=== PATIENT | female | born 1955 | race Caucasian/White ===

== ENCOUNTER → 2016-10-02 | Outpatient (CLI) | payer OTHER ==
[~2016-10-02] MED LIST: ALBU17IN INH; CALTTAB11 PO; CITA20TA4 PO; CLON0.5T PO; FISH1000 PO; FLUTISP; IBUP60TA PO; PRIL20CA9 PO; SERO50TA PO; ZOCO20TA PO
--- NOTE | 2016-10-03 03:59 | REP ---
Clinical: Sprain. . Technique: AP, lateral, bilateral oblique views right ankle . Findings: No acute fracture or dislocation. Skeletal structures and joint spaces are intact and normal. Ankle mortise appears stable. No subcutaneous emphysema or radiodense foreign body. Lateral view demonstrates L K nail heal spur. Impression: No acute fracture or dislocation. Signed by Familia Conley MD 10/03/2016 03:50 A
== END ==
LOC: M WUC 10:13
PROVIDERS: ATTEND Physician Assistant
DX: S93.421A Sprain of deltoid ligament of right ankle, initial encounter (principal); W18.30XA Fall on same level, unspecified, initial encounter; Y92.009 Unspecified place in unspecified non-institutional (private) residence as the place of occurrence of the external cause

== ENCOUNTER → 2016-12-20 | Outpatient (CLI) | payer OTHER ==
--- NOTE | 2016-12-20 15:57 | REPMRS ---
Patient History The patient states she had a clinical breast exam in Patient is postmenopausal. Family history of prostate cancer in father at age 81. Reductions of both breasts, October 2011. Digital Woman Screen Mammo: December 20, 2016 - Exam #: [id number] Bilateral CC and MLO view(s) were taken. Technologist: Bhavna Acosta, Technologist Prior study comparison: December 21, 2015, digital woman screen mammo performed at [facility]. November 09, 2014, digital woman screen mammo performed at [facility]. FINDINGS: There are scattered fibroglandular densities. There has been no change in the appearance of the mammogram from the prior studies. There is a mild amount of residual fibroglandular tissue which is fairly symmetric. There is no interval development of dominant mass, architectural distortion, or clustered microcalcification suggestive of malignancy. ASSESSMENT: BI-RADS/ACR category 1 mammogram. Negative. Recommendation Routine screening mammogram in 1 year (for women over age 40). This mammogram was interpreted with the aid of an FDA-approved computer-aided dectection system. Electronically Signed By: Aquiles Del Valle MD 12/20/16 0097
== END ==
LOC: M WHC 14:52
PROVIDERS: ATTEND Nurse Practitioner Family
DX: Z12.31 Encounter for screening mammogram for malignant neoplasm of breast (principal)

== ENCOUNTER → 2017-09-29 | Outpatient (CLI) | payer OTHER ==
[2017-09-29 09:27] LABS: HEMATOCRIT 41.1 % (36.0-47.0); HEMOGLOBIN 13.7 g/dl (12.0-16.0); MEAN CORPUSCULAR HEMOGLOBIN 30.6 pg (27.0-33.0); MEAN CORPUSCULAR HGB CONC 33.3 g/dl (32.0-36.5); MEAN CORPUSCULAR VOLUME 91.7 fl (80.0-96.0); PLATELET COUNT, AUTOMATED 231 10^3/uL (150-450); RED BLOOD COUNT 4.48 10^6/uL (4.00-5.40); RED CELL DISTRIBUTION WIDTH 12.6 % (11.5-14.5); WHITE BLOOD COUNT 4.7 10^3/uL (4.0-10.0)
[2017-09-29 10:08] LABS: ALBUMIN/GLOBULIN RATIO 1.25 (1.00-1.93); ALKALINE PHOSPHATASE 97 U/L (45-117); ALT/SGPT 40 U/L (12-78); ANION GAP 7 MEQ/L (8-16); AST/SGOT 19 U/L (7-37); BILIRUBIN,TOTAL 0.6 MG/DL (0.2-1.0); BLOOD UREA NITROGEN 12 MG/DL (7-18); CALCIUM LEVEL 8.9 MG/DL (8.8-10.2); CARBON DIOXIDE LEVEL 28 MEQ/L (21-32); CHLORIDE LEVEL 109 MEQ/L (98-107); CHOLESTEROL LEVEL 150 MG/DL (<200); CHOLESTEROL RISK RATIO 3.125 (<5); CREATININE FOR GFR 0.75 MG/DL (0.55-1.30); FERRITIN 26 NG/ML (8-252); FREE T4 0.81 NG/DL (0.76-1.46); GLOMERULAR FILTRATION RATE > 60.0 (>45); GLUCOSE, FASTING 118 MG/DL (70-100); HDL CHOLESTEROL 48 MG/DL (>40); IRON (FE) 50 UG/DL (50-170); LDL CHOLESTEROL 65.8 MG/DL (<100); NON-HDL-C 102 MG/DL; PERCENT SATURATION 12.8 % (13.2-45.0); POTASSIUM SERUM 4.5 MEQ/L (3.5-5.1); SODIUM LEVEL 144 MEQ/L (136-145); TOTAL IRON BINDING CAPACITY 392 UG/DL (250-450); TOTAL PROTEIN 7.2 GM/DL (6.4-8.2); TRIGLYCERIDES LEVEL 181 MG/DL (<150)
[2017-09-29 11:13] LABS: ESTIMATED AVERAGE GLUCOSE 120 MG/DL (60-110); HEMOGLOBIN A1c 5.8 %
[2017-09-29 12:34] LABS: TOTAL 25(OH) VITAMIN D 24.1 NG/ML (30.0-100.0); VITAMIN B12 LEVEL 1218 PG/ML (247-911)
[2017-09-29 12:37] LABS: FOLATE 13.5 NG/ML (>5.4)
== END ==
LOC: M LAB 08:48
DX: Z01.818 Encounter for other preprocedural examination (principal); E66.01 Morbid (severe) obesity due to excess calories; K76.89 Other specified diseases of liver; K76.0 Fatty (change of) liver, not elsewhere classified
CPT/HCPCS: 71046

== ENCOUNTER → 2017-12-22 | Outpatient (CLI) | payer OTHER | LOC: M WHC 15:05 | DX: Z12.31 Encounter for screening mammogram for malignant neoplasm of breast (principal); Z78.0 Asymptomatic menopausal state ==

== ENCOUNTER → 2018-07-24 | Outpatient (CLI) | payer OTHER ==
[~2018-07-24] MED LIST changes: -CLON0.5T PO; +CLON0.5T8 PO
[2018-07-24 13:58] LABS: ALBUMIN 3.8 GM/DL (3.2-5.2); ALT/SGPT 23 U/L (12-78); BILIRUBIN,TOTAL 1.1 MG/DL (0.2-1.0); BLOOD UREA NITROGEN 9 MG/DL (7-18); CALCIUM LEVEL 9.1 MG/DL (8.8-10.2); CARBON DIOXIDE LEVEL 27 MEQ/L (21-32); CHLORIDE LEVEL 105 MEQ/L (98-107); CHOLESTEROL LEVEL 195 MG/DL (<200); CHOLESTEROL RISK RATIO 4.333 (<5); CREATININE FOR GFR 0.67 MG/DL (0.55-1.30); FERRITIN 36 NG/ML (8-252); FREE T4 0.94 NG/DL (0.76-1.46); GLOMERULAR FILTRATION RATE > 60.0 (>45); GLUCOSE, FASTING 99 MG/DL (70-100); HDL CHOLESTEROL 45 MG/DL (>40); IRON (FE) 84 UG/DL (50-170); LDL CHOLESTEROL 117 MG/DL (<100); NON-HDL-C 150 MG/DL; POTASSIUM SERUM 4.3 MEQ/L (3.5-5.1); SODIUM LEVEL 141 MEQ/L (136-145); THYROID STIMULATING HORMONE 0.855 uIU/ML (0.358-3.740); TOTAL IRON BINDING CAPACITY 336 UG/DL (250-450); TOTAL PROTEIN 7.1 GM/DL (6.4-8.2); TRIGLYCERIDES LEVEL 164 MG/DL (<150)
[2018-07-24 13:59] LABS: TOTAL 25(OH) VITAMIN D 34.4 NG/ML (30.0-100.0)
[2018-07-24 14:00] LABS: VITAMIN B12 LEVEL 1280 PG/ML (247-911)
[2018-07-24 14:53] LABS: HEMOGLOBIN A1c 5.4 %
== END ==
LOC: M SMT 08:36
PROVIDERS: ATTEND Surgery
DX: K91.2 Postsurgical malabsorption, not elsewhere classified (principal)

== ENCOUNTER → 2018-10-26 | Outpatient (CLI) | payer OTHER ==
[~2018-10-26] MED LIST changes: -CITA20TA4 PO; +CITA20TA6 PO; +FLUT50SP12; -FLUTISP; +IBUP600T42 PO; -IBUP60TA PO
[2018-10-26 13:50] LABS: ALBUMIN 3.8 GM/DL (3.2-5.2); ALT/SGPT 25 U/L (12-78); BILIRUBIN,TOTAL 1.4 MG/DL (0.2-1.0); BLOOD UREA NITROGEN 14 MG/DL (7-18); CALCIUM LEVEL 9.3 MG/DL (8.8-10.2); CARBON DIOXIDE LEVEL 28 MEQ/L (21-32); CHLORIDE LEVEL 108 MEQ/L (98-107); CHOLESTEROL LEVEL 225 MG/DL (<200); CHOLESTEROL RISK RATIO 3.461 (<5); CREATININE FOR GFR 0.67 MG/DL (0.55-1.30); FERRITIN 88 NG/ML (8-252); FREE T4 0.97 NG/DL (0.76-1.46); GLOMERULAR FILTRATION RATE > 60.0 (>45); GLUCOSE, FASTING 91 MG/DL (70-100); HDL CHOLESTEROL 65 MG/DL (>40); IRON (FE) 68 UG/DL (50-170); LDL CHOLESTEROL 137 MG/DL (<100); NON-HDL-C 160 MG/DL; PERCENT SATURATION 23.4 % (13.2-45.0); SODIUM LEVEL 141 MEQ/L (136-145); THYROID STIMULATING HORMONE 0.881 uIU/ML (0.358-3.740); TOTAL IRON BINDING CAPACITY 291 UG/DL (250-450); TOTAL PROTEIN 6.7 GM/DL (6.4-8.2); TRIGLYCERIDES LEVEL 113 MG/DL (<150)
[2018-10-26 13:52] LABS: TOTAL 25(OH) VITAMIN D 31.2 NG/ML (30.0-100.0); VITAMIN B12 LEVEL > 2000 PG/ML (247-911)
[2018-10-26 14:37] LABS: HEMOGLOBIN A1c 4.3 %
== END ==
LOC: M SMT 09:37
PROVIDERS: ATTEND Surgery
DX: K91.2 Postsurgical malabsorption, not elsewhere classified (principal)

== ENCOUNTER → 2019-01-26 | Outpatient (CLI) | payer OTHER ==
[2019-01-26 14:07] LABS: ALBUMIN 3.9 GM/DL (3.2-5.2); ALT/SGPT 29 U/L (12-78); BILIRUBIN,TOTAL 1.4 MG/DL (0.2-1.0); BLOOD UREA NITROGEN 15 MG/DL (7-18); CALCIUM LEVEL 9.2 MG/DL (8.8-10.2); CARBON DIOXIDE LEVEL 29 MEQ/L (21-32); CHLORIDE LEVEL 108 MEQ/L (98-107); CHOLESTEROL LEVEL 147 MG/DL (<200); CHOLESTEROL RISK RATIO 2.773 (<5); CREATININE FOR GFR 0.63 MG/DL (0.55-1.30); FERRITIN 50 NG/ML (8-252); FREE T4 0.72 NG/DL (0.76-1.46); GLOMERULAR FILTRATION RATE > 60.0 (>45); GLUCOSE, FASTING 89 MG/DL (70-100); HDL CHOLESTEROL 53 MG/DL (>40); IRON (FE) 133 UG/DL (50-170); LDL CHOLESTEROL 72 MG/DL (<100); NON-HDL-C 94 MG/DL; PERCENT SATURATION 35.7 % (13.2-45.0); POTASSIUM SERUM 4.9 MEQ/L (3.5-5.1); SODIUM LEVEL 143 MEQ/L (136-145); THYROID STIMULATING HORMONE 0.568 uIU/ML (0.358-3.740); TOTAL IRON BINDING CAPACITY 373 UG/DL (250-450); TOTAL PROTEIN 7.2 GM/DL (6.4-8.2); TRIGLYCERIDES LEVEL 112 MG/DL (<150); VITAMIN B12 LEVEL 1022 PG/ML (247-911)
[2019-01-26 15:44] LABS: HEMOGLOBIN A1c 4.8 %
== END ==
LOC: M SMT 09:18
PROVIDERS: ATTEND Surgery
DX: K21.9 Gastro-esophageal reflux disease without esophagitis (principal)

== ENCOUNTER → 2019-02-24 | Outpatient (CLI) | payer OTHER ==
--- NOTE | 2019-02-24 15:33 | REPMRS ---
Patient History The patient states she had a clinical breast exam in 02/2019. Patient is postmenopausal. Family history of prostate cancer at age 81 in father. Reductions of both breasts, October 2011. No Hormone Replacement Therapy 3D TOMOSYNTHESIS WAS PERFORMED. [facility] lifetime risk for breast cancer is 7.3%. Digital Woman Screen Mammo: February 24, 2019 - Exam #: [id number] Bilateral CC and MLO view(s) were taken. Technologist: Peggy Valentin, Technologist Prior study comparison: December 22, 2017, digital woman screen mammo performed at [facility]. December 20, 2016, digital woman screen mammo performed at [facility]. FINDINGS: There are scattered fibroglandular densities. There has been no change in the appearance of the mammogram from the prior studies. There is a mild amount of residual fibroglandular tissue which is fairly symmetric. There is no interval development of dominant mass, architectural distortion, or clustered microcalcification suggestive of malignancy. Assessment: BI-RADS/ACR category 1 mammogram. Negative Mammogram. Recommendation Routine screening mammogram in 1 year (for women over age 40). This mammogram was interpreted with the aid of an FDA-approved computer-aided dectection system. Electronically Signed By: Aquiles Del Valle MD 02/24/19 [id number]
== END ==
LOC: M WHC 13:37
PROVIDERS: ATTEND Nurse Practitioner Family
DX: Z12.31 Encounter for screening mammogram for malignant neoplasm of breast (principal); Z78.0 Asymptomatic menopausal state; Z80.42 Family history of malignant neoplasm of prostate; Z98.890 Other specified postprocedural states

== ENCOUNTER → 2019-02-24 | Outpatient (REF) | payer OTHER ==
[2019-02-26 15:47] LABS: HPV HYBRID CAPTURE II Negative (Negative)
== END ==
LOC: M SFHCWAGY 14:03
PROVIDERS: ATTEND Nurse Practitioner Family
DX: Z12.4 Encounter for screening for malignant neoplasm of cervix (principal)

== ENCOUNTER → 2019-04-30 | Outpatient (CLI) | payer OTHER ==
[2019-04-30 10:25] LABS: ALBUMIN 3.6 GM/DL (3.2-5.2); ALT/SGPT 30 U/L (12-78); BILIRUBIN,TOTAL 1.3 MG/DL (0.2-1.0); BLOOD UREA NITROGEN 14 MG/DL (7-18); CALCIUM LEVEL 8.8 MG/DL (8.8-10.2); CARBON DIOXIDE LEVEL 31 MEQ/L (21-32); CHLORIDE LEVEL 108 MEQ/L (98-107); CHOLESTEROL LEVEL 148 MG/DL (<200); CHOLESTEROL RISK RATIO 2.242 (<5); CREATININE FOR GFR 0.65 MG/DL (0.55-1.30); FERRITIN 54 NG/ML (8-252); FREE T4 0.74 NG/DL (0.76-1.46); GLOMERULAR FILTRATION RATE > 60.0 (>45); GLUCOSE, FASTING 86 MG/DL (70-100); HDL CHOLESTEROL 66 MG/DL (>40); IRON (FE) 94 UG/DL (50-170); LDL CHOLESTEROL 64 MG/DL (<100); NON-HDL-C 82 MG/DL; PERCENT SATURATION 29.7 % (13.2-45.0); SODIUM LEVEL 143 MEQ/L (136-145); TOTAL IRON BINDING CAPACITY 317 UG/DL (250-450); TOTAL PROTEIN 6.6 GM/DL (6.4-8.2); TRIGLYCERIDES LEVEL 92 MG/DL (<150)
[2019-04-30 10:26] LABS: TOTAL 25(OH) VITAMIN D 43.1 NG/ML (30.0-100.0); VITAMIN B12 LEVEL 976 PG/ML (247-911)
[2019-04-30 10:32] LABS: HEMOGLOBIN A1c 4.9 %
== END ==
LOC: M SMT 08:16
PROVIDERS: ATTEND Surgery
DX: K91.2 Postsurgical malabsorption, not elsewhere classified (principal)

== ENCOUNTER → 2019-06-09 | Outpatient (REF) | payer OTHER | LOC: M SFHCWAGY 11:15 | PROVIDERS: ATTEND Nurse Practitioner Family | DX: Z12.4 Encounter for screening for malignant neoplasm of cervix (principal); N95.2 Postmenopausal atrophic vaginitis ==

== ENCOUNTER → 2019-11-15 | Outpatient (CLI) | payer OTHER ==
[~2019-11-15] MED LIST changes: +CLON0.5T2 PO; -CLON0.5T8 PO
[2019-11-15 13:00] LABS: ALBUMIN 3.5 GM/DL (3.2-5.2); ALT/SGPT 32 U/L (12-78); BILIRUBIN,TOTAL 1.3 MG/DL (0.2-1.0); BLOOD UREA NITROGEN 16 MG/DL (7-18); CARBON DIOXIDE LEVEL 30 MEQ/L (21-32); CHLORIDE LEVEL 108 MEQ/L (98-107); CHOLESTEROL LEVEL 136 MG/DL (<200); CHOLESTEROL RISK RATIO 2.518 (<5); CREATININE FOR GFR 0.59 MG/DL (0.55-1.30); FERRITIN 30 NG/ML (8-252); FREE T4 0.74 NG/DL (0.76-1.46); GLOMERULAR FILTRATION RATE > 60.0 (>45); GLUCOSE, FASTING 86 MG/DL (70-100); HDL CHOLESTEROL 54 MG/DL (>40); IRON (FE) 142 UG/DL (50-170); LDL CHOLESTEROL 58 MG/DL (<100); NON-HDL-C 82 MG/DL; PERCENT SATURATION 42.8 % (13.2-45.0); POTASSIUM SERUM 4.8 MEQ/L (3.5-5.1); SODIUM LEVEL 140 MEQ/L (136-145); TOTAL 25(OH) VITAMIN D 35.4 NG/ML (30.0-100.0); TOTAL IRON BINDING CAPACITY 332 UG/DL (250-450); TOTAL PROTEIN 6.5 GM/DL (6.4-8.2); TRIGLYCERIDES LEVEL 118 MG/DL (<150); VITAMIN B12 LEVEL 464 PG/ML (247-911)
[2019-11-15 13:32] LABS: HEMOGLOBIN A1c 4.8 %
== END ==
LOC: M WUC 09:40
PROVIDERS: ATTEND Surgery
DX: K91.2 Postsurgical malabsorption, not elsewhere classified (principal)

== ENCOUNTER → 2020-02-28 | Outpatient (CLI) | payer OTHER ==
--- NOTE | 2020-03-16 11:52 | REPMRS ---
Patient History The patient states she had a clinical breast exam in 02/2020. Patient is postmenopausal. Family history of prostate cancer at age 81 in father. Reductions of both breasts, October 2011. No Hormone Replacement Therapy Digital Woman Screen Mammo: February 28, 2020 - Exam #: [id number] Bilateral CC and MLO view(s) were taken. Technologist: Charissa New, Technologist Prior study comparison: February 24, 2019, bilateral digital woman screen mammo performed at [facility]. December 22, 2017, digital woman screen mammo performed at [facility]. December 20, 2016, digital woman screen mammo performed at [facility]. FINDINGS: There are scattered fibroglandular densities. There has been no change in the appearance of the mammogram from the prior studies. There are two areas of fat necrosis in the left breast unchanged. There is a mild amount of scattered fibroglandular density which is fairly symmetric. There is no interval development of dominant mass, architectural distortion, or grouped microcalcification suggestive of malignancy. 3-D tomosynthesis shows no additional findings. Assessment: BI-RADS/ACR category 2 mammogram. Benign Findings. Recommendation Routine screening mammogram of both breasts in 1 year (for women over age 40). This patient's Lifetime Breast Cancer Risk is estimated at 7.0 %. This mammogram was interpreted with the aid of an FDA-approved computer-aided dectection system. Electronically Signed By: Christophe Mcfarland MD 03/16/20 [id number]
== END ==
LOC: M WHC 07:53
PROVIDERS: ATTEND Nurse Practitioner Family
DX: Z12.31 Encounter for screening mammogram for malignant neoplasm of breast (principal); Z80.42 Family history of malignant neoplasm of prostate; N64.1 Fat necrosis of breast

== ENCOUNTER → 2020-02-28 | Outpatient (REF) | payer OTHER | LOC: M SFHCPLAZ 11:05 | PROVIDERS: ATTEND Nurse Practitioner Family | DX: Z12.4 Encounter for screening for malignant neoplasm of cervix (principal) ==

== ENCOUNTER → 2020-04-24 | Outpatient (CLI) | payer OTHER ==
[2020-04-24 10:04] LABS: HEMOGLOBIN 12.5 g/dl (12.0-15.5); MEAN CORPUSCULAR HEMOGLOBIN 33.8 pg (27.0-33.0); MEAN CORPUSCULAR HGB CONC 32.9 g/dl (32.0-36.5); MEAN CORPUSCULAR VOLUME 102.7 fl (80.0-96.0); PLATELET COUNT, AUTOMATED 189 10^3/uL (150-450); WHITE BLOOD COUNT 3.9 10^3/uL (4.0-10.0)
[2020-04-24 10:47] LABS: ALBUMIN 3.7 GM/DL (3.2-5.2); ALT/SGPT 37 U/L (12-78); BLOOD UREA NITROGEN 15 MG/DL (7-18); CALCIUM LEVEL 8.9 MG/DL (8.8-10.2); CARBON DIOXIDE LEVEL 31 MEQ/L (21-32); CHLORIDE LEVEL 108 MEQ/L (98-107); CHOLESTEROL LEVEL 147 MG/DL (<200); CHOLESTEROL RISK RATIO 2.333 (<5); CREATININE FOR GFR 0.61 MG/DL (0.55-1.30); FERRITIN 16 NG/ML (8-252); FREE T4 0.75 NG/DL (0.76-1.46); GLOMERULAR FILTRATION RATE > 60.0 (>45); GLUCOSE, FASTING 85 MG/DL (70-100); HDL CHOLESTEROL 63 MG/DL (>40); IRON (FE) 84 UG/DL (50-170); LDL CHOLESTEROL 60 MG/DL (<100); NON-HDL-C 84 MG/DL; PERCENT SATURATION 21.5 % (13.2-45.0); SODIUM LEVEL 141 MEQ/L (136-145); THYROID STIMULATING HORMONE 0.948 uIU/ML (0.358-3.740); TOTAL IRON BINDING CAPACITY 391 UG/DL (250-450); TOTAL PROTEIN 6.9 GM/DL (6.4-8.2); TRIGLYCERIDES LEVEL 121 MG/DL (<150)
[2020-04-24 11:50] LABS: TOTAL 25(OH) VITAMIN D 35.1 NG/ML (30.0-100.0)
[2020-04-24 11:51] LABS: VITAMIN B12 LEVEL 560 PG/ML (247-911)
== END ==
LOC: M WUC 08:22
PROVIDERS: ATTEND Surgery
DX: K91.2 Postsurgical malabsorption, not elsewhere classified (principal)

== ENCOUNTER → 2021-01-11 | Outpatient (CLI) | payer MEDICARE, OTHER ==
--- NOTE | 2021-01-11 11:02 | REP ---
INDICATION: N63.20 LEFT BREAST MASS. Left breast lump x1 month, pea-sized. Prior reduction mammoplasty. COMPARISON: Comparison mammography February 28, 2020, February 24, 2019, and December 22, 2017. TECHNIQUE: A skin marker is affixed to the skin at site of the palpable lump. Routine views of the left breast are augmented by magnified focal spot-compression images and true mL views. 3D tomography and targeted left breast sonography is carried out. This mammogram was interpreted with the aid of an FDA-approved computer-aided detection system. FINDINGS: On diagnostic mammography images, the skin marker is seen directly over previously noted area of fat necrosis. This is an oval-shaped fat containing partially calcified nodule measuring 12 mm in greatest diameter. It is unchanged in size and appearance from the prior studies. There is another smaller fat necrosis lobule deeper in the medial aspect of the left breast which is also unchanged. There is a mild fibrosis in the inframammary fold region. No other mammographic abnormality. The [facility] volumetric breast density pattern is b. Targeted ultrasound: Targeted left breast sonography is performed in the area the palpable lump 8-9 o'clock. At 8 o'clock, there is a superficially positioned 1.1 x 0.8 x 0.8 cm anechoic area with echogenic margins consistent with the area of fat necrosis. This is unchanged in size from the September 15, 2013 prior ultrasound study. This is 2.7 cm from the nipple. At 9 o'clock position there is a similar cystic area 0.6 x 0.6 x 0.4 cm which is unchanged from the prior ultrasound 2013. IMPRESSION: BIRADS/ACR category 2 benign left breast mammographic and sonographic findings. Palpable lump corresponds to a a previously noted area of postoperative fat necrosis which is unchanged and benign in appearance. No suspicious imaging features. This patient's [facility]rer-Cuzick lifetime breast cancer risk assessment score is 6.7%. RECOMMENDATION: Repeat screening mammography recommended 1 year (for women over 40). Clinical follow-up. The patient letter being requested is M2. <Electronically signed by Christophe Mcfarland > 01/11/21 [id number]
== END ==
LOC: M WHC 08:32
PROVIDERS: ATTEND Nurse Practitioner Women's Health
DX: N63.24 Unspecified lump in the left breast, lower inner quadrant (principal)
CPT/HCPCS: 76642; 77065; G0279

== ENCOUNTER → 2021-03-01 | Outpatient (CLI) | payer MEDICARE, OTHER ==
--- NOTE | 2021-03-01 12:46 | REPMRS ---
Patient History The patient states she had a clinical breast exam in February 2021. Patient is postmenopausal and has history of other cancer at age 65. Family history of prostate cancer at age 81 in father. Reductions of both breasts, October 2011. No Hormone Replacement Therapy Patient states no breast complaints today. Patient has signed MRS History Sheet. Digital Woman Screen Mammo: March 01, 2021 - Exam #: [id number] Bilateral CC and MLO view(s) were taken. Technologist: RT Kiel Prior study comparison: February 28, 2020, bilateral digital woman screen mammo performed at [facility]. February 24, 2019, bilateral digital woman screen mammo performed at [facility]. December 22, 2017, digital woman screen mammo performed at [facility]. FINDINGS: There are scattered fibroglandular densities. There has been no change in the appearance of the right breast parenchyma in the interval since the prior examination. No mass, architectural distortion, or microcalcific grouping has developed. No suspicious finding. 3-D tomosynthesis shows no additional findings. Assessment: BI-RADS/ACR category 2 mammogram. Benign Findings. Recommendation Routine screening mammogram of both breasts in 1 year. [facility] RIsk is estimated at 6.7 %. This mammogram was interpreted with the aid of an FDA-approved computer-aided dectection system. Electronically Signed By: Christophe Mcfarland MD 03/01/21 [id number]
== END ==
LOC: M WHC 10:39
PROVIDERS: ATTEND Nurse Practitioner Women's Health
DX: Z12.31 Encounter for screening mammogram for malignant neoplasm of breast (principal); Z78.0 Asymptomatic menopausal state; Z85.89 Personal history of malignant neoplasm of other organs and systems

== ENCOUNTER → 2021-03-01 | Outpatient (REF) | payer MEDICARE, OTHER | LOC: M SFHCWAGY 13:58 | PROVIDERS: ATTEND Nurse Practitioner Women's Health | DX: Z12.4 Encounter for screening for malignant neoplasm of cervix (principal); N95.2 Postmenopausal atrophic vaginitis | CPT/HCPCS: 87624; G0101; G0123 ==

== ENCOUNTER → 2021-04-11 | Outpatient (CLI) | payer MEDICARE, OTHER ==
[2021-04-11 13:55] LABS: BASO % 0.4 % (0.0-1.0); EOS # 0.2 10^3/uL (0.0-0.5); EOS % 4.5 % (0.0-3.0); HEMATOCRIT 39.5 % (36.0-47.0); HEMOGLOBIN 12.7 g/dl (12.0-15.5); LYMPH # 1.4 10^3/uL (1.5-5.0); LYMPH % 28.4 % (24.0-44.0); MEAN CORPUSCULAR HEMOGLOBIN 32.4 pg (27.0-33.0); MEAN CORPUSCULAR HGB CONC 32.2 g/dl (32.0-36.5); MEAN CORPUSCULAR VOLUME 100.8 fl (80.0-96.0); MONO # 0.6 10^3/uL (0.0-0.8); MONO % 11.2 % (2.0-8.0); NEUTROPHILS # 2.7 10^3/uL (1.5-8.5); NEUTROPHILS % 55.3 % (36.0-66.0); PLATELET COUNT, AUTOMATED 215 10^3/uL (150-450); RED BLOOD COUNT 3.92 10^6/uL (4.00-5.40); WHITE BLOOD COUNT 4.9 10^3/uL (4.0-10.0)
[2021-04-11 14:37] LABS: ALBUMIN 3.7 GM/DL (3.2-5.2); ALT/SGPT 45 U/L (12-78); BILIRUBIN,TOTAL 0.9 MG/DL (0.2-1.0); BLOOD UREA NITROGEN 12 MG/DL (7-18); CALCIUM LEVEL 9.3 MG/DL (8.8-10.2); CARBON DIOXIDE LEVEL 30 MEQ/L (21-32); CHLORIDE LEVEL 108 MEQ/L (98-107); CREATININE FOR GFR 0.68 MG/DL (0.55-1.30); GLOMERULAR FILTRATION RATE > 60.0 (>45); GLUCOSE, FASTING 116 MG/DL (70-100); IRON (FE) 117 UG/DL (50-170); PERCENT SATURATION 25.6 % (13.2-45.0); POTASSIUM SERUM 4.4 MEQ/L (3.5-5.1); SODIUM LEVEL 139 MEQ/L (136-145); TOTAL IRON BINDING CAPACITY 457 UG/DL (250-450); TOTAL PROTEIN 7.1 GM/DL (6.4-8.2)
[2021-04-11 14:40] LABS: TOTAL 25(OH) VITAMIN D 33.3 NG/ML (30.0-100.0); VITAMIN B12 LEVEL 1779 PG/ML (247-911)
== END ==
LOC: M PLALAB 09:51
PROVIDERS: ATTEND Registered Nurse
DX: E66.01 Morbid (severe) obesity due to excess calories (principal); E51.9 Thiamine deficiency, unspecified; M19.90 Unspecified osteoarthritis, unspecified site; K91.2 Postsurgical malabsorption, not elsewhere classified; D51.9 Vitamin B12 deficiency anemia, unspecified; E55.9 Vitamin D deficiency, unspecified

== ENCOUNTER → 2021-05-12 | Outpatient (CLI) | payer MEDICARE, OTHER ==
[~2021-05-12] MED LIST changes: +ACET-907 PO; +CALC500C16 PO; +ERGO500029 PO; +MELO15TA28 PO; +OMEP-218 PO; +VITMTA PO
== END ==
LOC: M LABSMTC 09:17
PROVIDERS: ATTEND Anesthesiology
DX: Z20.828 Contact with and (suspected) exposure to other viral communicable diseases (principal); Z11.52 Encounter for screening for COVID-19

== ENCOUNTER 2021-05-17 08:33 | Day surgery (SDC) | payer MEDICARE, OTHER ==
[~2021-05-17] VITALS: Ht 165.1 cm; Wt 66.7 kg
[~2021-05-17 08:33] MED LIST changes: +NS 1,000 ML IV ONE
--- OUTSIDE RECORDS SUMMARY | 2021-05-17 08:38 | CCD | Continuity of Care Document ---
Author Author Gudelia MACIEL MD Organization Unknown Address [address] [place] [address] Phone [phone] Problems Active Problems Provider Date Obesity Lashae Gomes A.NBlancoPBlanco Onset: 07/01/2012 Body mass index 30+ - obesity Lashae Gomes A.NTip Onset: 06/2012 Obstructive sleep apnea syndrome Lashae Gomes A.NTip Onset: 07/02/2010 Social History Type Date Description Comments Sex Unknown ETOH Use 3 A Day Tobacco Use Start: Unknown Non Smoker Smoking Status Reviewed: 01/29/21 Non Smoker Allergies, Adverse Reactions, Alerts Active Allergies Reaction Severity Comments Date Sulfamethoxazole / Trimethoprim flu like s/s, rash 11/29/2009 Inactive Allergies NKDA 11/20/2015 Medications Active Medications SIG Qnty Indications Ordering Provide r Date Miralax 17GM/Scoop Powder use as directed see dr maciel colon preparation instructions 510gm Z86.010 Kushal ryan Maciel MD 02/05/2021 Milk Of Magnesia 1200mg/15ML Suspe nsion take 45 milliliters by mouth as directed on colonoscopy prep sheet. 355ml Z86.010 Elia Maciel MD 02/05/2021 BIPAP Device 9/6CM MIGEL Starr 11/19/2019 Moderiba (1000 MG Pack) 400&600mg TBPK Unknown Azelastine HCL (Nasal) 137mcg/[place] Solution spray 1 spray in each nostril two times a day Unknown Meloxicam 15mg Tablets 1 tab by mouth every night Clay Galarza D.O. 0 Vitamin B-12 500mcg Lozenges 1 po qd Unknown Tylenol PM Extra Strength 500-25mg Tablets 2 po qhs Unknown Zocor 20mg Tablets Unknown Ventolin HFA 108(90Base) mcg/Act A erosol 2 puffs four times a day as needed Unknown Seroquel 50mg Tablets Unknown Ibuprofen 800mg Tablets 1 by mouth prn Unknown Prilosec 20mg Capsules DR 20 mg by mouth daily Unknown Fish Oil 1000mg Capsules once a day Unknown Caltrate 600+D [id number] Tablets Unknown Clonazepam 0.5mg Tablets mayte y Unknown Citalopram Hydrobromide 20mg Table ts daily Unknown Immunizations CPT Code Status Date Vaccine Lot # 28969 Given 05/18/2015 Influenza Virus Split 3 Yrs And Above For Intramuscular Use Q2036 Given 05/26/2013 Influenza Vaccine 3 Years Of Age Or Older (Flulaval) Q2036 Given 05/27/2012 Influenza Vaccine 3 Years Of Age Or Older (Flulaval) Q2036 Given 04/20/2011 Influenza Vaccine 3 Years Of Age Or Older (Flulaval) Vital Signs Date Vital Result Comment 02/05/2021 2:51pm BP Systolic 104 mmHg BP Diastolic 68 mmHg Height 63.75 inches 5'3.75" Weight 149.00 lb BMI (Body Mass Index) 25.8 kg/m2 [place] Body Weight 115 lb Weight 67.586 kg BSA (Body Surface Area) 1.72 m2 01/29/2021 8:53am BP Systolic 112 mmHg BP Diastolic 64 mmHg Heart Rate 71 /min O2 % BldC Oximetry 96 % Body Temperature 97.2 F Height 63.75 inches 5'3.75" Weight 148.50 lb BMI (Body Mass Index) 25.7 kg/m2 [place] Body Weight 115 lb Weight 67.360 kg BSA (Body Surface Area) 1.72 m2 Results Description No Information Available Procedures Date Code Description Status 01/29/2021 13439 Office/Outpatient Established Lo w MDM 20-29 Min Completed Medical Devices Description No Information Available Encounters Type Date Location Provider Dx Diagnosis Office Visit 01/29/2021 9:00a [facility] Lashae To wne, ANP G47.33 Obstructive sleep apnea (adult) (pediatr ic) Assessments Date Code Description Provider 02/05/2021 Z86.010 Personal history of colonic poly ps Elia Maciel MD 01/29/2021 G47.33 Obstructive sleep apnea (adult) (pediatric) MIGEL Carrillo Plan of Treatment Future Appointment(s):* 05/17/2021 2:00 am - Elia Maciel MD at [facility] * 01/29/2022 9:30 am - MIGEL Carrillo at [facility] 02/05/2021 - Elia Maciel MD* Z86.010 Personal history of colonic polyps* New Medication:* Milk Of Magnesia 1200 mg/15ML * Miralax 17 GM/Scoop * New Orders:* Colonoscopy, Ordered: 02/05/21 Functional Status Description No Information Available Mental Status Description No Information Available Referrals Description No Information Available
--- OUTSIDE RECORDS SUMMARY | 2021-05-17 08:38 | CCD | Continuity of Care Document ---
Author Author Gudelia REYNOLDS D.O. Organization Unknown Address [address] [place] [id number] Phone [phone] Problems Active Problems Provider Date Menopausal/Postmenopausal Disorders Augusto Galicia DO Ons et: 12/23/2003 Hyperlipidemia Augusto Galicia DO Onset: 08/28/2004 Lumbosacral spondylosis without myelopathy Clay Reynolds D.O., FAAFP Onset: 01/02/2006 Allergic rhinitis Clay Reynolds D.O., FAAFP Onset: 08/2005 Sleep apnea Clay Reynolds D.O., FAAFP Onset: 05/22 Note: BI PAP Depressive disorder Clay Reynolds D.O., FAAFP Onset: 09/2010 Gastroesophageal reflux disease Clay Reynolds D.O., FAAFP Onset: 12/17/2012 Acquired spondylolisthesis Clay Reynolds D.O. FAAFP Onse t: 07/08/2013 Generalized anxiety disorder Mary Kate Doherty RPA-C Onse t: 07/19/2013 Polyp Clay Reynolds D.O., FAAFP Onset: 12/20 Note: SIGMOID 4 MM REMOVED 12/2015 Social History Type Date Description Comments Sex Unknown Tobacco Use Start: Unknown Never Smoked Cigarettes ETOH Use Current alcohol use: drinks 1-2 glasses of wine daily or every other day. Tobacco Use Start: Unknown Patient has never smoked Smoking Status Reviewed: 01/25/21 Patient has never smoked Seat Belt/Car Seat always Allergies and adverse reactions Active Allergies Criticality Reaction | Severity Comments Date Sulfa Drugs Unable to assess criticality fever, macul opapular rash, N/V 06/03/2001 Zithromax Unable to assess criticality Hives 09/04/2020 Medications Active Medications SIG Qnty Indications Ordering Provide r Date Omeprazole 20mg Capsules DR Take One Capsule By Mouth Every Day In The Morning Maximum Daily Dose = 1 Capsule 90caps Clay Reynolds D.O., FAAFP 01/01/2021 Moderna Covid-19 Vaccine 100mcg/0.5ML Suspension pt recieved both Clay Reynolds D.O., F AAFP 10/19/2020 Quetiapine Fumarate 50mg Tablets take one tablet by mouth at bedtime 90tabs Clay Reynolds D.O. , FAAFP 08/12/2020 Azelastine HCL (Nasal) 0.1% Sol[place] on [place] Two Sprays In Each Nostril Twice A Day 30units Clay Reynolds D.O., FAAFP 06/15/2019 Meloxicam 15mg Tablets 1 by mouth every day 90tabs Clay Reynolds D.O., FAAFP Simvastatin 20mg Tablets Take One Tablet By Mouth Every Day 90tabs Clay Reynolds D.O., FAAFP 09/26/2018 Vitamin D-1000 Maximum Strength 1000Unit Tablets 2 po daily Clay Reynolds D.O., FAAFP 12/02/2017 Calcium Citrate + D3 [id number] Tablets 1 bid Clay Reynolds D.O., FAAFP 05/06/2017 Clonazepam 0.5mg Tablets 1 by mouth twice a day 60tabs Clay Reynolds D.O., FAAFP 06/2015 Ventolin HFA 108(90Base) mcg/Act A erosol ii puffs every 4-6 hours as needed sob or wheezing 1units Clay Reynolds D.O., FAAFP 11/01/[address] take one capsule by mouth every day in the morning maximum daily dose = 1 capsule 90caps Clay Reynolds D.O., FAAFP 12/17/2012 Vitamin Multiple LA Weight Loss as directed Unknown Fish Oil Capsules 1 by mo uth every day Unknown Vit B12 Capsules 1 po daily Unknown Citalopram Hydrobromide 20mg Table ts Take One Tablet By Mouth Every Day Maximum Daily Dose = One Tablet 90tabs Clay Reynolds D.O., [facility] Moderiba (1000 MG Pack) 400&600mg TBPK both Unknown Drisdol 1.25mg (26826 Ut) Capsules take one capsule by mouth every week Unknown Medications Administered in Office Medication SIG Qnty Indications Ordering Provider Date Injection (SC)/(Im) Injection Gilberto Chavarria M.D. 05/29/2015 Injection (SC)/(Im) Injection Clay Reynolds D.O., [facility] 06/02/2014 Injection (SC)/(Im) Injection Clay Reynolds D.O., [facility] 12/17/2012 Immunizations CPT Code Status Date Vaccine Lot # [id number] Given 05/03/2021 Influenza Virus Vaccine, Quadrivalent, Slit Virus, Im Use 3Y & Up [id number] 80725 Given 04/06/2020 Influenza Virus Vaccine, Quadrivalent, Slit Virus, Im Use 3Y & Up [id number] 60657 Given 05/27/2019 Influenza Virus Vaccine, Quadrivalent, Slit Virus, Im Use 3Y & Up [id number] 33646 Given 03/19/2018 Influenza Virus Vaccine, Quadrivalent, Slit Virus, Im Use 3Y & Up [id number] 48567 Given 05/06/2017 Influenza Virus Vaccine, Quadrivalent, Slit Virus, Im Use 3Y & Up [id number] 01949 Given 05/16/2016 Influenza Virus Vaccine, Quadrivalent, Slit Virus, Im Use 3Y & Up [id number] 21239 Given 05/29/2015 Influenza Virus Vac. Split Virus Individuals 3 Years And Above [id number] 35583 Given 06/02/2014 Influenza Virus Vac. Split Virus Individuals 3 Years And Above [id number] 65670 Given 12/17/2012 Tdap Tetanus,Dip htheria Toxoids/Acellular Pertussis 7Yrs Or Older [id number] Vital Signs Date Vital Result Comment 05/03/2021 2:42pm BP Systolic 116 mmHg BP Diastolic 84 mmHg Body Temperature 98.3 F Heart Rate 84 /min Respiratory Rate 16 /min Height 65 inches 5'5" Weight 148.00 lb [place] Body Weight 125 lb BMI (Body Mass Index) 24.6 kg/m2 O2 % BldC Oximetry 98 % 01/25/2021 1:23pm BP Systolic 112 mmHg BP Diastolic 68 mmHg Body Temperature 97.3 F Heart Rate 72 /min Respiratory Rate 16 /min Height 65 inches 5'5" Weight 146.00 lb [place] Body Weight 125 lb BMI (Body Mass Index) 24.3 kg/m2 O2 % BldC Oximetry 98 % Results Test Acquired Date Facility Test Result H/L Range Note U/A DIP FPA 04/25/2021 [facility] Asso ciates Color Urine YELLOW Yellow Appearance CLEAR Clear Specific [place] 1.020 1.00-1.03 PH Urine 5.0 5.0-8.0 Glucose Urine NEG Negative Bilirubin Urine NEG Negative Ketones NEG Negative Blood Urine 1+ High Negative Protein Urine NEG Negative Urobilinogen .2 EU/dl 0.2-1.0 Nitrite NEG Negative Leukocytes NEG Negative CBC 04/25/2021 [facility]/Inhouse WBC 4.3 10E3/uL 4.1 - 10.9 1 RBC 3.96 10E6/uL Low 4.20 - 6.30 HGB 12.7 g/dL 12.0 - 18.0 HCT 38.6 % 37.0 - 51.0 MCV 97.5 fL High 80.0 - 97.0 MCH 32.1 pg High 26.0 - 32.0 MCHC 32.9 g/dL 31.0 - 36.0 PLT 196 10E3/uL 140 - 440 RDW-CV 12.8 % 11.5 - 14.5 Lym% 30.0 % 10.0 - 58.5 Neut% 56.8 % 37.0 - 92.0 MXD% 13.2 % 0.1 - 24.0 Lym# 1.3 10E3/uL 0.6 - 4.1 Neut# 2.4 % 2.0 - 7.8 MXD# 0.6 10E3/uL 0.0 - 1.8 MPV 9.7 fL 9.0 - 13.0 CMP 04/25/2021 [facility]/Inhouse Glu 93 mg/dL 70 - 110 BUN 18 mg/dL 8 - 23 Creat 0.6 mg/dL 0.5 - 1.0 BUN/Creatinine Ratio 30.9 CALC Na 136 mmol/L 136 - 145 K 4.5 mmol/L 3.5 - 5.1 CL 101.5 mmol/L 98.0 - 107.0 Co2 23.5 mmol/L 22.0 - 29.0 CA 9.5 mg/dL 8.6 - 10.2 TP 6.7 g/dL 6.6 - 8.7 Alb 4.5 g/dL 3.4 - 4.8 A/G Ratio 2.1 CALC Globulin 2.2 CALC Alp 95.3 U/L 35 - 129 Alt (SGPT) 37 U/L 0 - 41 Ast (Sgot) 36 U/L 0 - 40 Tbili 0.94 mg/dL 0.0 - 1.2 Osmolality-Calculated 273.2 CALC Anion Gap 15 mmol/L eGFR 110 # Calc 2 eGFR Non-Afr. Australian 95 # Calc 3 Lipid Panel 04/25/2021 [facility]Inhouse Chol 156 mg/dL 0 - 200 Trig 118 mg/dL 40 - 200 HDL 69 mg/dL High 45 - 65 LDL_C 63 Calc Low 75 - 129 Cho/HDL Ratio 2.2 CALC Laboratory test finding 04/25/2021 [facility]/Inhouse CK 56 U/L 26 - 192 CBC With Differential 04/11/2021 [facility] (Interface) [phone] White Blood Count 4.9 10 Normal 4.0-10.0 Red Blood Count 3.92 10 Low 4.00-5.40 Hemoglobin 12.7 g/dL Normal 12.0-15.5 Hematocrit 39.5 % Normal 36.0-47.0 Mean Corpuscular Volume 100.8 fl High 80.0-96.0 Mean Corpuscular Hemoglobin 32.4 pg Normal 27.0-33.0 Mean Corpuscular HGB Conc 32.2 g/dL Normal 32.0-36.5 Red Cell Distribution Width 12.8 % Normal 11.5-14.5 Platelet Count, Automated 215 10 Normal 150-450 Neutrophils % 55.3 % Normal 36.0-66.0 Lymph % 28.4 % Normal 24.0-44.0 Ed[place] % 11.2 % High 2.0-8.0 Eos % 4.5 % High 0.0-3.0 Baso % 0.4 % Normal 0.0-1.0 Immature Granulocyte % 0.2 % Normal 0-3.0 Nucleated Red Blood Cell % 0.0 % Normal 0-0 Neutrophils # 2.7 10 Normal 1.5-8.5 Lymph # 1.4 10 Low 1.5-5.0 Edmunds # 0.6 10 Normal 0.0-0.8 Eos # 0.2 10 Normal 0.0-0.5 Baso # 0.0 10 Normal 0.0-0.2 Comprehensive Metabolic Profil 04/11/2021 [facility] (Interface) [phone] Glucose, Fasting 116 mg/dL High 70-100 Blood Urea Nitrogen 12 mg/dL Normal 7-18 Creatinine For GFR 0.68 mg/dL Normal 0.55-1.30 Glomerular Filtration Rate > 60.0 Normal >45 4 Sodium Level 139 mEq/L Normal 136-145 Potassium Serum 4.4 mEq/L Normal 3.5-5.1 Chloride Level 108 mEq/L High 98-107 Carbon Dioxide Level 30 mEq/L Normal 21-32 Anion Gap 1 mEq/L Low 8-16 Calcium Level 9.3 mg/dL Normal 8.8-10.2 Ast/Sgot 33 U/L Normal 7-37 Alt/SGPT 45 U/L Normal 12-78 Alkaline Phosphatase 97 U/L Normal 45-117 Bilirubin,Total 0.9 mg/dL Normal 0.2-1.0 Total Protein 7.1 GM/DL Normal 6.4-8.2 Albumin 3.7 GM/DL Normal 3.2-5.2 Albumin/Globulin Ratio 1.1 Low 1.2-2.2 Total Iron Binding Capacit 04/11/2021 [facility] ical (Interface) [phone] Iron (Fe) 117 g/dL Normal 50-170 Total Iron Binding Capacity 457 g/dL High 250-450 Percent Saturation 25.6 % Normal 13.2-45.0 Laboratory test finding [facility] [phone] Vitamin B12 Level 1779 pg/mL High 247-911 5 Total 25(Oh) Vitamin D 33.3 NG/ML Normal 30.0-100.0 Vitamin B1 Level Whole Blood 122.7 nmol/L Normal 66.5-200.0 6 U/A DIP FPA 01/18/2021 [facility] As[facility] ciates Color Urine YELLOW Yellow Appearance CLEAR Clear Specific [place] 1.020 1.00-1.03 PH Urine 5.5 5.0-8.0 Glucose Urine NEG Negative Bilirubin Urine NEG Negative Ketones NEG Negative Blood Urine NEG Negative Protein Urine NEG Negative Urobilinogen .2 EU/dl 0.2-1.0 Nitrite NEG Negative Leukocytes NEG Negative CBC 01/18/2021 [facility]/Inhouse WBC 4.8 10E3/uL 4.1 - 10.9 RBC 4.11 10E6/uL Low 4.20 - 6.30 HGB 13.3 g/dL 12.0 - 18.0 HCT 40.6 % 37.0 - 51.0 MCV 98.8 fL High 80.0 - 97.0 MCH 32.4 pg High 26.0 - 32.0 MCHC 32.8 g/dL 31.0 - 36.0 PLT 207 10E3/uL 140 - 440 RDW-CV 12.7 % 11.5 - 14.5 Lym% 27.4 % 10.0 - 58.5 Neut% 54.9 % 37.0 - 92.0 MXD% 17.7 % 0.1 - 24.0 Lym# 1.3 10E3/uL 0.6 - 4.1 Neut# 2.7 % 2.0 - 7.8 MXD# 0.8 10E3/uL 0.0 - 1.8 MPV 10.0 fL 9.0 - 13.0 CMP 01/18/2021 [facility]/Inhouse Glu 94 mg/dL 70 - 110 BUN 21 mg/dL 8 - 23 Creat 0.6 mg/dL 0.5 - 1.0 BUN/Creatinine Ratio 33.3 CALC Na 139 mmol/L 136 - 145 K 5.0 mmol/L 3.5 - 5.1 CL 101.9 mmol/L 98.0 - 107.0 Co2 26.0 mmol/L 22.0 - 29.0 CA 9.6 mg/dL 8.6 - 10.2 TP 7.1 g/dL 6.6 - 8.7 Alb 4.7 g/dL 3.4 - 4.8 A/G Ratio 1.9 CALC Globulin 2.4 CALC Alp 97.3 U/L 35 - 129 Alt (SGPT) 48 U/L High 0 - 41 Ast (Sgot) 46 U/L High 0 - 40 Tbili 1.27 mg/dL High 0.0 - 1.2 Osmolality-Calculated 280.8 CALC Anion Gap 16 mmol/L eGFR 110 # Calc 7 eGFR Non-Afr. Australian 95 # Calc 8 Lipid Panel 01/18/2021 [facility]/Inhouse Chol 151 mg/dL 0 - 200 Trig 126 mg/dL 40 - 200 HDL 66 mg/dL High 45 - 65 LDL_C 59 Calc Low 75 - 129 Cho/HDL Ratio 2.3 CALC Laboratory test finding 01/18/2021 [facility]/Inhouse CK 67 U/L 26 - 192 1 NORMAL RANGES Age WBC RBC HGB HCT MCV PLT Adult M 4.1-10.9 4.20-6.30 12.0-18.0 37.0-51.0 80-97 140-440 Adult F 4.1-10.9 4.04-5.48 12.0-18.0 37.0-51.0 80-97 140-440 0 -1 Yr 5.0-20.0 3.9-5.9 15-18 MV: 44 MV: 91 MV: 277 2-9 Yr. 6.0-17.0 3.8-5.4 11-13 MV: 37 MV: 78 MV: 300 10 Yrs. 5.0-13.0 3.8-5.4 12-15 MV: 39 MV: 80 MV: 250 NOTE: * FOR ADULT BLACK MALES AND FEMALES, NORMAL WBC IS 2.9-7.7 K/ML * FOR ADULT BLACK MALES AND FEMALES, NORMAL RBC,HGB, AND HCT IS 5% LESS SOURCE FOR DATA: [employer] DYN 1800 OPERATION MANUAL( AUTOMATED BLOOD COUNTS AND DIFF.) APPENDIX B-3 CHRONIC KIDNEY DISEASE STAGING PER NKF: MALE GFR INTERPRETATION: 20-49 YRS: >60 mL/min Normal 50-59 YRS: >56 mL/min Normal 60-69 YRS: >49 mL/min Normal 70-79 YRS: >42 mL/min Normal 80 and above >35 mL/min Normal FEMALE GRF INTERPRETATION: 20-39 YRS: >60 mL/min Normal 40-49 YRS: >58 mL/min Normal 50-59 YRS: >51 mL/min Normal 60-69 YRS: >45 mL/min Normal 70-79 YRS: >39 mL/min Normal 80 and above >32 mL/min NormalCLASSIFICATION CHOLESTEROL FOR ADULTS CHILDREN/ADOLESCENTS* DESIRABLE: <200 MG/DL <170 MG/DL BORDER-LINE HIGH RISK: 200-239 MG/DL 170-199 MG/DL HIGH RISK: >240 MG/DL >200 MG/DL CLASS. FOR PRIMARY LDL CHOL PREVENTION: LDL CHOL-CHILD/ADOLESCENTS* DESIRABLE: <130 MG/DL <110 MG/DL BORDERLINE-HIGH RISK: 130-159 MG/DL 110-129 MG/DL HIGH RISK: >160 MG/DL >130 MG/DL *CHILDREN AND ADOLESCENTS REPRESENTS INDIVIDUALA AGED 2-19 YEARS EXCLUSIVE. 2 CKD-EPI 3 CKD-EPI 4 Units are mL/min/1.73 m2 Chronic Kidney Disease Staging per NKF: Stage I & II GFR >=60 Normal to Mildly Decreased Stage III GFR 30-59 Moderately Decreased Stage IV GFR 15-29 Severely Decreased Stage V GFR <15 Very Little GFR Left ESRD GFR <15 on GOLF COACH 5 VITAMIN B12 NORMAL RANGE NORMAL 247 - 911 PG/ML INDETERMINATE 211 - 246 PG/ML DEFICIENT LESS THAN 211 PG/ML 6 This test was developed and its performance characteristics determined by [facility]. It has not been cleared or approved by the Food and Drug Administration. Performed at: [address] [id number] 61 General Internist: Alvaro Marte MD, Phone: [phone] CKD-EPI 8 CKD-EPI Procedures Date Code Description Status 05/03/2021 98514 Office/Outpatient Established Mo d MDM 30-39 Min Completed 01/25/2021 89706 Office/Outpatient Established Mo d MDM 30-39 Min Completed Medical Devices Description No Information Available Encounters Type Date Location Provider Dx Diagnosis Office Visit 05/03/2021 2:45p [facility] Josef Landaverde, FAAFP E78.5 Hyperlipidemia, unspecified F32.89 Other specified depressive e pisodes K21.9 Gastro-esophageal reflux dis ease without esophagitis Office Visit 01/25/2021 1:30p [facility] Josef Landaverde, FAAFP I10 Essential (primary) hypertension F32.89 Other specified depressive e pisodes K21.9 Gastro-esophageal reflux dis ease without esophagitis E78.5 Hyperlipidemia, unspecified R74.01 Elevation of levels of liver transaminase levels Assessments Date Code Description Provider 05/03/2021 E78.5 Hyperlipidemia, unspecified Delio Reynolds D.O., FAAFP 05/03/2021 F32.89 Other specified depressive episo dandy Clay Reynolds D.O., FAAFP 05/03/2021 K21.9 Gastro-esophageal reflux disease without esophagitis Clay Reynolds D.O., FAAFP 04/25/2021 I10 Essential (primary) hypertension Gilberto Chavarria M.D. 04/25/2021 I10 Essential (primary) hypertension Laboratory [place] Schedule 04/25/2021 E78.5 Hyperlipidemia, unspecified [facility] Gilberto anaya M.D. 04/25/2021 E78.5 Hyperlipidemia, unspecified Labo ratory [place] Schedule 04/25/2021 L50.8 Other urticaria Gilberto Chavarria M.D. 04/25/2021 L50.8 Other urticaria [facility] Schedule 01/25/2021 I10 Essential (primary) hypertension Clay Reynolds D.O., FAAFP 01/25/2021 F32.89 Other specified depressive episo dandy Clay Reynolds D.O., FAAFP 01/25/2021 K21.9 Gastro-esophageal reflux disease without esophagitis Clay Reynolds D.O., FAAFP 01/25/2021 E78.5 Hyperlipidemia, unspecified Delio Reynolds D.O., FAAFP 01/25/2021 R74.01 Elevated levels of transaminase & lactic acid dehydrogenase [facility].O., [facility] 01/18/2021 I10 Essential (primary) hypertension Clay Reynolds D.O., [facility] 01/18/2021 I10 Essential (primary) hypertension Laboratory [place] Schedule 01/18/2021 E78.5 Hyperlipidemia, unspecified Delio Reynolds D.O., [facility] 01/18/2021 E78.5 Hyperlipidemia, unspecified Labo ratory [place] Schedule Plan of Treatment Future Appointment(s):* 08/07/2021 10:00 am - Clay Reynolds D.O., [facility] at [facility] * 07/25/2021 9:00 am - Laboratory [place] Schedule at [facility] Functional Status Description No Information Available Mental Status Description No Information Available Referrals Description No Information Available
--- OUTSIDE RECORDS SUMMARY | 2021-05-17 08:38 | CCD ---
Author Author [facility] Organization [facility] Address Unknown Phone Unavailable Care Team Providers Care Service Delivery Manager Name Role Phone Shilpi Pham Unavailable PROBLEMS Type Condition ICD9-CM Code VEE47-AL Code Onset Dates Condition S tatus W/U Status Risk SNOMED Code Notes Problem Basal cell carcinoma of nasolabial crease C44.311 Active confirmed [id number] ALLERGIES Allergen (clinical drug ingredient) Drug/Non Drug Allergy do cumented on EMR Reaction Allergy Type Onset Date Status Sulfa (for allergy use only) Rash, flu like symptoms Non D rug Allergy Active ENCOUNTERS from 1955 to 2021-03-02 Encounter Location Date Provider Diagnosis [facility] [address] [place] [address] [place] [address] Feb, Shilpi Pham Routine gynecologica l examination Z01.419 ; Breast cancer screening by mammogram Z12.31 and Screening for malignant neoplasm of cervix Z12.4 IMMUNIZATIONS No Information SOCIAL HISTORY Sex Assigned At : Social History Observation Description Sex Assigned At Unknown Education: Question Answer Notes Level of Education: College Language: Question Answer Notes Languages spoken: Maltese Pentecostalism: Question Answer Notes Pentecostalism 06 Tenriism Alcohol Screening: Question Answer Notes Did you have a drink containing alcohol in the past year? Ye s Points 1 Interpretation Negative How often did you have six or more drinks on one occas ion in the past year? Never (0 points) How many drinks did you have on a typica l day when you were drinking in the past year? 1 or 2 (0 points) How often did you have a drink containing alcohol in t he past year? Monthly or less (1 point) BMI Care Goal Follow-Up Question Answer Notes Above Normal BMI Follow-Up Giving encouragement to exercise REASON FOR REFERRAL No Information VITAL SIGNS Weight 146.2 lbs Feb, Height 63. in Feb, BMI 25.9 kg/m2 Feb, Blood pressure systolic 118 mm Hg Feb, Blood pressure diastolic 84 mm Hg Feb, MEDICATIONS Medication SIG (Take, Route, Frequency, Duration) Notes Start Da te End Date Status Simvastatin 20 MG 1 tablet in the evening Orally Once a day Active Cefdinir 300 MG 2 capsules Orally once a day for 10 day(s) Apr, Not-Taking Tylenol PM 1 tab Oral for 14 days Ac tive Omeprazole 20 MG 1 capsule Orally Once a day for 30 day(s) Active Tylenol Arthritis Pain 650 MG 2 tablets as needed Orally every 8 hrs Active Multivital bariatric MVI Active Calcium + D 500-1000-40 MG-UNT-MCG Orally Active CeleXA 20 MG 1 tablet Orally Once a day Active clonazePAM 0.5 MG 1 tablet Orally Twice a day Active Baclofen 10 MG 1 tablet with food or milk Orally Three times a day as needed Active QUEtiapine Fumarate 50 MG 1 tablet Orally Once a day Active Meloxicam 15 MG 1/2 tab Orally Once a day Active Citalopram Hydrobromide 20 MG 1 tablet Orally Once a day Not-Taking PROCEDURES No Information RESULTS Component Value Reference Range WW DIGITAL / ROSAMARIA BILATERAL MAMMO SCRE ENING (Ultrasound if indicated) Reviewed date:03/01/2021 15:31:44 Interpretation:Negative Performing Lab:[facility],[address]], ,[place] [address] REASON FOR VISIT annual/mammo MEDICAL (GENERAL) HISTORY Type Description Date Medical History TMJ Medical History anxiety, depression Medical History low back pain, spondylolistheses Medical History hyperlipidemia Medical History environmental allergies Medical History Acid reflux Medical History sleep apnea, has Bi-pap Medical History fx foot, no surgery Surgical History joint arthoplasty Bilateral thumbs Surgical History foot surgery-plantar fascia Surgical History colonoscopy, Dr. Masterson 12/29 and 04/02, 2 016 Surgical History breast reduction 10/30 Surgical History Gastric Bypass [place]-y 04/2018 Surgical History basil cell removal 09/06/2020 Goals Section No Information Health Concerns No Information MEDICAL EQUIPMENT No Information MENTAL STATUS No Information FUNCTIONAL STATUS No Information ASSESSMENTS Encounter Date Diagnosis Assessment Notes Treatment Notes Treatm ent Clinical Notes Feb, Routine gynecological examination (ICD-10 - Z01. 419) Pt to report any episodes of pmb or pelvic pain. Advise regular physical activity including weight bearing exercise most days of the week. Reviewed calcium rich foods. Feb, Breast cancer screening by mammogram (ICD-10 - Z 12.31) Reviewed screening intervals with mammography, recommend annual screening until age 75. Reviewed breast awareness, know what is normal for you so that you can detect any changes in the breasts, check breasts regularly, in a routine that you are comfortable with. Feb, Screening for malignant neoplasm of cervix (ICD- 10 - Z12.4) PLAN OF TREATMENT Treatment Notes Assessment Notes Clinical Notes Routine gynecological examination Pt to report any episodes of pmb or pelvic pain. Advise regular physical activity including weight bearing exercise most days of the week. Reviewed calcium rich foods. Breast cancer screening by mammogram Rev iewed screening intervals with mammography, recommend annual screening until age 75. Reviewed breast awareness, know what is normal for you so that you can detect any changes in the breasts, check breasts regularly, in a routine that you are comfortable with. Treatment Notes Test Name Order Date PAP REQUEST FOR SERVICE 2021-03-01 Next Appt Details 1 Year Reason:- Annual follow up/mammo Follow Up:1 Year- Annual follow up/mammo Insurance Providers Payer Name Payer Address Payer Phone Insured Name Patient Relati onship to Insured Coverage Start Date Coverage End Date [facility] [address] [id number] [facility] [phone] [employer] MEDICARE Part A and B [address] [facility] [id number] [employer]
--- OUTSIDE RECORDS SUMMARY | 2021-05-17 08:38 | CCD | Continuity of Care Document ---
Author Author Gudelia Miranda Organization Unknown Address [address] [facility] [address] [place] [address] Phone [phone] Problems Active Problems Provider Date Menopausal/Postmenopausal Disorders Augusto Galicia DO Ons et: 12/23/2003 Hyperlipidemia Augusto Galicia DO Onset: 08/28/2004 Lumbosacral spondylosis without myelopathy Clay Galarza D.O., FAAFP Onset: 01/02/2006 Allergic rhinitis Clay Galarza D.O., FAAFP Onset: 08/2005 Sleep apnea Clay Galarza D.O., FAAFP Onset: 05/22 Note: BI PAP Depressive disorder Clay Galarza D.O., FAAFP Onset: 09/2010 Gastroesophageal reflux disease Clay Galarza D.O., FAAFP Onset: 12/17/2012 Acquired spondylolisthesis Clay Galarza D.O. FAAFP Onse t: 07/08/2013 Generalized anxiety disorder Mary Kate Doherty RPA-C Onse t: 07/19/2013 Polyp Clay Galarza D.O., FAAFP Onset: 12/20 Note: SIGMOID 4 [...] Daily Dose = 1 Capsule 90caps Clay Galarza D.O., FAAFP 01/01/2021 Moderna Covid-19 Vaccine 100mcg/0.5ML Suspension pt recieved both Clay Galarza D.O., F AAFP 10/19/2020 Quetiapine Fumarate 50mg Tablets take one tablet by mouth at bedtime 90tabs Clay Galarza D.O. , FAAFP 08/12/2020 Azelastine HCL (Nasal) 0.1% Soluti on [place] Two Sprays In Each Nostril Twice A Day 30units Clay Galarza D.O., FAAFP 06/15/2019 Meloxicam 15mg Tablets 1 by mouth every day 90tabs Clay Galarza D.O., FAAFP Simvastatin 20mg Tablets Take One Tablet By Mouth Every Day 90tabs Clay Galarza D.O., FAAFP 09/26/2018 Vitamin D-1000 Maximum Strength 1000Unit Tablets 2 po daily Clay Galarza D.O., FAAFP 12/02/2017 Calcium Citrate + D3 [id number] Tablets 1 bid Clay Galarza D.O., FAAFP 05/06/2017 Clonazepam 0.5mg Tablets 1 by mouth twice a day 60tabs Clay Galarza D.O., FAAFP 06/2015 Ventolin HFA 108(90Base) mcg/Act A erosol ii puffs every 4-6 hours as needed sob or wheezing 1units Clay Galarza D.O., FAAFP 11/01/[address] take one capsule by mouth every day in the morning maximum daily dose = 1 capsule 90caps Clay Galarza D.O., FAAFP 12/17/2012 Vitamin Multiple LA Weight Loss as directed Unknown Fish Oil Capsules 1 by mo uth every day Unknown Vit B12 Capsules 1 po daily Unknown Citalopram Hydrobromide 20mg Table ts Take One Tablet By Mouth Every Day Maximum Daily Dose = One Tablet 90tabs Clay Galarza D.O., [facility] Moderiba (1000 MG Pack) 400&600mg TBPK both Unknown Drisdol 1.25mg (82851 Ut) Capsules take one capsule by mouth every week Unknown Medications Administered in Office Medication SIG Qnty Indications Ordering Provider Date Injection (SC)/(Im) Injection Gilberto Chavarria M.D. 05/29/2015 Injection (SC)/(Im) Injection Clay Galarza D.O., [facility] 06/02/2014 Injection (SC)/(Im) Injection Clay Galarza D.O., [facility] 12/17/2012 Immunizations CPT Code Status Date Vaccine Lot # [id number] Given 05/03/2021 Influenza Virus Vaccine, Quadrivalent, Slit Virus, Im Use 3Y & Up [id number] 75443 Given 04/06/2020 Influenza Virus Vaccine, Quadrivalent, Slit Virus, Im Use 3Y & Up [id number] 88961 Given 05/27/2019 Influenza Virus Vaccine, Quadrivalent, Slit Virus, Im Use 3Y & Up [id number] 47808 Given 03/19/2018 Influenza Virus Vaccine, Quadrivalent, Slit Virus, Im Use 3Y & Up [id number] 86090 Given 05/06/2017 Influenza Virus Vaccine, Quadrivalent, Slit Virus, Im Use 3Y & Up [id number] 80025 Given 05/16/2016 Influenza Virus Vaccine, Quadrivalent, Slit Virus, Im Use 3Y & Up [id number] 41698 Given 05/29/2015 Influenza Virus Vac. Split Virus Individuals 3 Years And Above [id number] 13338 Given 06/02/2014 Influenza Virus Vac. Split Virus Individuals 3 Years And Above [id number] 74067 Given 12/17/2012 Tdap Tetanus,Dip htheria Toxoids/Acellular Pertussis 7Yrs Or Older [id number] Vital Signs Date Vital Result Comment 05/03/2021 2:42pm BP Systolic 116 mmHg BP Diastolic 84 mmHg Body Temperature 98.3 F Heart Rate 84 /min Respiratory Rate 16 /min Height 65 inches 5'5" Weight 148.00 lb [place] Body Weight 125 lb BMI (Body Mass Index) 24.6 kg/m2 O2 % BldC Oximetry 98 % 01/25/2021 1:23pm BP Systolic 112 mmHg BP Diastolic 68 mmHg Body Temperature 97.3 F Heart Rate 72 /min Respiratory Rate 16 /min Height 65 inches 5'5" Weight 146.00 lb [place] Body Weight 125 lb BMI (Body Mass Index) 24.3 kg/m2 O2 % BldC Oximetry 98 % Results Test Acquired Date Facility Test Result H/L Range Note U/A DIP FPA 04/25/2021 [facility] Asso ciates Color Urine YELLOW Yellow Appearance CLEAR Clear Specific [place] 1.020 1.00-1.03 PH Urine 5.0 5.0-8.0 Glucose [...] eGFR 110 # Calc 2 eGFR Non-Afr. [place]aur[place] 95 # Calc 3 Lipid Panel 04/25/2021 FPA/Inhouse Chol 156 mg/dL 0 - 200 Trig 118 mg/dL 40 - 200 HDL 69 mg/dL High 45 - 65 LDL_C 63 Calc Low 75 - 129 Cho/HDL Ratio 2.2 CALC Laboratory test finding 04/25/2021 FPA/Inhouse CK 56 U/L 26 - 192 CBC With Differential 04/11/2021 [facility] (Interface) [phone] White Blood Count 4.9 10 Normal 4.0-10.0 [...] 36.0-66.0 Lymph % 28.4 % Normal 24.0-44.0 [place] % 11.2 % High 2.0-8.0 Eos % 4.5 % High 0.0-3.0 Baso % 0.4 % Normal 0.0-1.0 Immature Granulocyte % 0.2 % Normal 0-3.0 Nucleated Red Blood Cell % 0.0 % Normal 0-0 Neutrophils # 2.7 10 Normal 1.5-8.5 Lymph # 1.4 10 Low 1.5-5.0 [place] # 0.6 10 Normal 0.0-0.8 Eos # 0.2 10 Normal 0.0-0.5 Baso # 0.0 10 Normal 0.0-0.2 Comprehensive Metabolic Profil 04/11/2021 [facility] (Interface) [phone] Glucose, Fasting 116 mg/dL High 70-100 Blood [...] Low 1.2-2.2 Total Iron Binding Capacit 04/11/2021 [facility] ical (Interface) [phone] Iron (Fe) 117 g/dL Normal 50-170 Total Iron Binding Capacity 457 g/dL High 250-450 Percent Saturation 25.6 % Normal 13.2-45.0 Laboratory test finding [facility] [phone] Vitamin B12 Level 1779 pg/mL High 247-911 5 Total 25(Oh) Vitamin D 33.3 NG/ML Normal 30.0-100.0 Vitamin B1 Level Whole Blood 122.7 nmol/L Normal 66.5-200.0 6 U/A DIP FPA 01/18/2021 [facility] Asso ciates Color Urine YELLOW Yellow Appearance CLEAR Clear Specific [place] 1.020 1.00-1.03 PH Urine 5.5 5.0-8.0 Glucose [...] eGFR 110 # Calc 7 eGFR Non-Afr. Naur[place] 95 # Calc 8 Lipid Panel 01/18/2021 [...] HCT IS 5% LESS SOURCE FOR DATA: [employer]RIKA DYN 1800 OPERATION MANUAL( AUTOMATED BLOOD COUNTS [...] Little GFR Left ESRD GFR <15 on IS SUPPORT ANALYST 5 VITAMIN B12 NORMAL RANGE NORMAL 247 - 911 PG/ML INDETERMINATE 211 - 246 PG/ML DEFICIENT LESS THAN 211 PG/ML 6 This test was developed and its performance characteristics determined by [employer]. It has not been cleared or approved by the Food and Drug Administration. Performed at: [address] [id number] 61 Machine Quilt Stuffer: Alvaro Marte MD, Phone: [phone] CKD-EPI 8 CKD-EPI Procedures Date Code Description Status 05/03/2021 34204 Office/Outpatient Established Mo d MDM 30-39 Min Completed 01/25/2021 32801 Office/Outpatient Established Mo d MDM 30-39 Min Completed Medical Devices Description No Information Available Encounters Type Date Location Provider Dx Diagnosis Office Visit 05/03/2021 2:45p [place] [facility] Josef Landaverde, FAAFP E78.5 Hyperlipidemia, unspecified F32.89 Other specified depressive e pisodes K21.9 Gastro-esophageal reflux dis ease without esophagitis Office Visit 01/25/2021 1:30p [place] [facility] Josef Landaverde, FAAFP I10 Essential (primary) hypertension F32.89 Other specified depressive e pisodes K21.9 Gastro-esophageal reflux dis ease without esophagitis E78.5 Hyperlipidemia, unspecified R74.01 Elevation of levels of liver transaminase levels Assessments Date Code Description Provider 05/03/2021 E78.5 Hyperlipidemia, unspecified Delio Galarza D.O., FAAFP 05/03/2021 F32.89 Other specified depressive episo dandy Clay Galarza D.O., FAAFP 05/03/2021 K21.9 Gastro-esophageal reflux disease without esophagitis Clay Galarza D.O., FAAFP 04/25/2021 I10 Essential (primary) hypertension Gilberto Chavarria M.D. 04/25/2021 I10 Essential (primary) hypertension Laboratory [place] Schedule 04/25/2021 E78.5 [facility]lipidemia, [facility] 04/25/2021 E78.5 Hyperlipidemia, unspecified Labo ratory [place] Schedule 04/25/2021 L50.8 Other urticaria Gilberto Chavarria M.D. 04/25/2021 L50.8 Other urticaria Laboratory [facility] Schedule 01/25/2021 I10 Essential (primary) hypertension Clay Galarza D.O., FAAFP 01/25/2021 F32.89 Other specified depressive episo dandy Clay Galarza D.O., FAAFP 01/25/2021 K21.9 Gastro-esophageal reflux disease without esophagitis Clay Galarza D.O., FAAFP 01/25/2021 E78.5 Hyperlipidemia, unspecified Delio Galarza D.O., FAAFP 01/25/2021 R74.01 Elevated levels of transaminase & lactic acid dehydrogenase Clay Galarza D.O., [facility] 01/18/2021 I10 Essential (primary) hypertension Clay Galarza D.O., [facility] 01/18/2021 I10 Essential (primary) hypertension Laboratory [place] Schedule 01/18/2021 E78.5 Hyperlipidemia, unspecified Delio Galarza D.O., [facility] 01/18/2021 E78.5 Hyperlipidemia, unspecified Labo ratory [place] Schedule Plan of Treatment Future Appointment(s):* 08/07/2021 10:00 am - Clay Galarza D.O., [facility] at [place] [facility] * 07/25/2021 9:00 am - Laboratory [place] Schedule at [facility] Functional Status Description No Information Available Mental Status Description No Information Available Referrals Description No Information Available
--- OUTSIDE RECORDS SUMMARY | 2021-05-17 08:38 | CCD ---
Continuity of Care Document (CCD) Created on: 04/25/2021 Gudelia Quan External Reference #: [id number] : [id number] Sex: Female Author Author Gudelia PRABHAKAR MD Organization Unknown Address [address], [address] [place] [address] Phone [phone] Problems Active Problems Provider Date Arthritis Onset: Gastroesophageal reflux disease Onset: 0 Hyperlipidemia Onset: Morbid obesity Onset: Obstructive sleep apnea syndrome Onset: Vitamin D deficiency Onset: Social History Type Date Description Comments Sex Unknown Allergies and adverse reactions Active Allergies Criticality Reaction | Severity Comments Date Sulfa Unable to assess criticality 03/06/2020 Medications Active Medications SIG Qnty Indications Ordering Provide r Date Vitamin D (Ergocalciferol) 1.25mg (89945 Ut) Capsules 1 by mouth every week 12caps Geni Delatorre NP Azelastine HCL (Nasal) 137mcg/[place] Solution 2 sprays in each nostril twice a day Unkn own Calcium Citrate Chewy Bite [id number] Chewtabs Unknown Citalopram Hydrobromide 20mg Table ts 1 by mouth every day Unknown Clonazepam 0.5mg Tablets Dispers Unknown Cyanocobalamin 2500mcg Tablets Sub 1 Unknown Ketoconazole 2% Cream apply by topical route 2 times every day to the affected area(s) Unknown Meloxicam 15mg Tablets 1 by mouth every day Unknown Multivitamin Tablets 1 by mouth every day Unknown [place] 3-6-9 Complex Capsules Unknown Omeprazole 20mg Capsules DR 1 by mouth every day Unknown Probiotic Capsules 1 by mouth every day Unknown Quetiapine Fumarate 50mg Tablets take 1 tablet by mouth AT bedtime Unknown Simvastatin 20mg Tablets 1 by mouth every day Unknown Tylenol PM Extra Strength 500-25mg Tablets 1 by mouth every night Unknown Immunizations Description No Information Available Vital Signs Date Vital Result Comment 04/16/2021 1:30pm Height 65 inches 5'5" Weight 148.00 lb BMI (Body Mass Index) 24.6 kg/m2 BP Systolic 117 mmHg BP Diastolic 66 mmHg Heart Rate 74 /min Results Test Acquired Date Facility Test Result H/L Range Note CBC With Differential 04/11/[address] [address] [phone] White Blood Count 4.9 10 Normal 4.0-10.0 [...] 36.0-66.0 Lymph % 28.4 % Normal 24.0-44.0 [place] % 11.2 % High 2.0-8.0 Eos % 4.5 % High 0.0-3.0 Baso % 0.4 % Normal 0.0-1.0 Immature Granulocyte % 0.2 % Normal 0-3.0 Nucleated Red Blood Cell % 0.0 % Normal 0-0 Neutrophils # 2.7 10 Normal 1.5-8.5 Lymph # 1.4 10 Low 1.5-5.0 [place] # 0.6 10 Normal 0.0-0.8 Eos # 0.2 10 Normal 0.0-0.5 Baso # 0.0 10 Normal 0.0-0.2 Comprehensive Metabolic Profil 04/11/[address] [id number] [phone] Glucose, Fasting 116 mg/dL High 70-100 Blood Urea Nitrogen 12 mg/dL Normal 7-18 Creatinine For GFR 0.68 mg/dL Normal 0.55-1.30 Glomerular Filtration Rate > 60.0 Normal >45 1 Sodium Level 139 mEq/L Normal 136-145 Potassium [...] Low 1.2-2.2 Total Iron Binding Capacit 04/11/[address] [id number] [phone] Iron (Fe) 117 g/dL Normal 50-170 Total Iron Binding Capacity 457 g/dL High 250-450 Percent Saturation 25.6 % Normal 13.2-45.0 Laboratory test finding 04/11/[address] [address] [phone] Vitamin B12 Level 1779 pg/mL High 247-911 2 Total 25(Oh) Vitamin D 33.3 NG/ML Normal 30.0-100.0 Vitamin B1 Level Whole Blood 122.7 nmol/L Normal 66.5-200.0 3 1 Units are mL/min/1.73 m2 Chronic Kidney Disease Staging per NKF: Stage I & II GFR >=60 Normal to Mildly Decreased Stage III GFR 30-59 Moderately Decreased Stage IV GFR 15-29 Severely Decreased Stage V GFR <15 Very Little GFR Left ESRD GFR <15 on LIFTER 2 VITAMIN B12 NORMAL RANGE NORMAL 247 - 911 PG/ML INDETERMINATE 211 - 246 PG/ML DEFICIENT LESS THAN 211 PG/ML 3 This test was developed and its performance characteristics determined by [employer]. It has not been cleared or approved by the Food and Drug Administration. Performed at: - [facility] [id number] 61 Rack Cleaner: Alvaro Marte MD, Phone: [phone] Procedures Date Code Description Status 04/16/2021 88461 Office/Outpatient Established Lo w MDM 20-29 Min Completed Medical Devices Description No Information Available Encounters Type Date Location Provider Dx Diagnosis Office Visit 04/16/2021 1:15p [facility] Surgical Services Donavon salinas MD Z98.84 Bariatric surgery status E78.5 Hyperlipidemia, unspecified E66.3 Overweight Z68.24 Body mass index [BMI] 24.0-2 4.9, adult Assessments Date Code Description Provider 04/16/2021 Z98.84 Bariatric surgery status Donavon Prabhakar MD 04/16/2021 E78.5 Hyperlipidemia, unspecified Mau Prabhakar MD 04/16/2021 E66.3 Overweight Donavon Prabhakar MD 04/16/2021 Z68.24 Body mass index [BMI] 24.0-24.9, adult Donavon Prabhakar MD Plan of Treatment 04/16/2021 - Donavon Prabhakar MD* Z98.84 Bariatric surgery status* Comments:* Overall, she is doing well. She is status post gastric bypass. Her weight today is 148 lbs. Reviewed the blood work result with the patient in detail which was normalDenies any issues or concerns Advised the patient to continue the current care plan. She is advised to continue taking omeprazole, vitamins, and minerals.An order for blood work was provided. She is advised to make therapeutic lifestyle modifications which includes regular exercise (at least 30 minutes a day, 5 days a week) and a healthy diet Advised the patient to let us know if she has any issues or concerns.Follow-up in a year.IKatherine hereby attest that the medical record entry on April 16, 2021, accurately reflects notations that I made in my capacity as the scribe of Dr. Prabhakar. * E78.5 Hyperlipidemia, unspecified * E66.3 Overweight * Z68.24 Body mass index [BMI] 24.0-24.9, adult Functional Status Description No Information Available Mental Status Description No Information Available Referrals Description No Information Available
--- OUTSIDE RECORDS SUMMARY | 2021-05-17 08:38 | CCD | Continuity of Care Document ---
Author Author Gudelia REYNOLDS D.O. Organization Unknown Address [address] [place] [address] Phone [phone] Problems Active Problems Provider Date Menopausal/Postmenopausal Disorders [...] 08/12/2020 Azelastine HCL (Nasal) 0.1% Soluti on [place] Two Sprays In Each Nostril Twice A Day 30units Clay Reynolds D.O., FAAFP 06/15/2019 Meloxicam 15mg Tablets 1 by mouth every day 90tabs Clay Reynolds D.O., FAAFP Simvastatin 20mg Tablets Take One Tablet By Mouth Every Day 90tabs Clay Reynolds D.O., FAAFP 09/26/2018 Vitamin D-1000 Maximum Strength 1000Unit Tablets 2 po daily Clay Reynolds D.O., FAAFP 12/02/2017 Calcium Citrate + D3 [id number] Tablets 1 bid Clay Reynolds D.O., FAAFP [...] = One Tablet 90tabs Clay Reynolds D.O., [facility] Moderiba (1000 MG Pack) 400&600mg TBPK both Unknown Drisdol 1.25mg (50532 Ut) Capsules take one capsule by mouth every week Unknown Medications Administered in Office Medication SIG Qnty Indications Ordering Provider Date Injection (SC)/(Im) Injection Gilberto Chavarria M.D. 05/29/2015 Injection (SC)/(Im) Injection Clay Reynolds D.O., [facility] 06/02/2014 Injection (SC)/(Im) Injection Clya Reynolds D.O., [facility] 12/17/2012 Immunizations CPT Code Status Date Vaccine Lot # [id number] Given 05/03/2021 Influenza Virus Vaccine, Quadrivalent, Slit Virus, Im Use 3Y & Up [id number] 99725 Given 04/06/2020 Influenza Virus Vaccine, Quadrivalent, Slit Virus, Im Use 3Y & Up [id number] 91910 Given 05/27/2019 Influenza Virus Vaccine, Quadrivalent, Slit Virus, Im Use 3Y & Up [id number] 74750 Given 03/19/2018 Influenza Virus Vaccine, Quadrivalent, Slit Virus, Im Use 3Y & Up [id number] 81007 Given 05/06/2017 Influenza Virus Vaccine, Quadrivalent, Slit Virus, Im Use 3Y & Up [id number] 58741 Given 05/16/2016 Influenza Virus Vaccine, Quadrivalent, Slit Virus, Im Use 3Y & Up [id number] 62352 Given 05/29/2015 Influenza Virus Vac. Split Virus Individuals 3 Years And Above [id number] 99847 Given 06/02/2014 Influenza Virus Vac. Split Virus Individuals 3 Years And Above [id number] 61728 Given 12/17/2012 Tdap Tetanus,Dip htheria Toxoids/Acellular Pertussis 7Yrs Or Older [id number] Vital Signs Date Vital Result Comment 05/03/2021 2:42pm BP Systolic 116 mmHg BP Diastolic 84 mmHg Body Temperature 98.3 F Heart Rate 84 /min Respiratory Rate 16 /min Height 65 inches 5'5" Weight 148.00 lb [place] Body Weight 125 lb BMI (Body Mass Index) 24.6 kg/m2 O2 % BldC Oximetry 98 % 01/25/2021 1:23pm BP Systolic 112 mmHg BP Diastolic 68 mmHg Body Temperature 97.3 F Heart Rate 72 /min Respiratory Rate 16 /min Height 65 inches 5'5" Weight 146.00 lb [place] Body Weight 125 lb BMI (Body Mass Index) 24.3 kg/m2 O2 % BldC Oximetry 98 % Results Test Acquired Date Facility Test Result H/L Range Note U/A DIP FPA 04/25/2021 [facility] Asso ciates Color Urine YELLOW Yellow Appearance CLEAR Clear Specific [place] 1.020 1.00-1.03 PH Urine 5.0 5.0-8.0 Glucose [...] eGFR 110 # Calc 2 eGFR Non-Afr. Ugandan 95 # Calc 3 Lipid Panel 04/25/2021 FPA/Inhouse Chol 156 mg/dL 0 - 200 Trig 118 mg/dL 40 - 200 HDL 69 mg/dL High 45 - 65 LDL_C 63 Calc Low 75 - 129 Cho/HDL Ratio 2.2 CALC Laboratory test finding 04/25/2021 FPA/Inhouse CK 56 U/L 26 - 192 CBC With Differential 04/11/2021 [facility] (Interface) [phone] White Blood Count 4.9 10 Normal 4.0-10.0 [...] 36.0-66.0 Lymph % 28.4 % Normal 24.0-44.0 [place] % 11.2 % High 2.0-8.0 Eos % 4.5 % High 0.0-3.0 Baso % 0.4 % Normal 0.0-1.0 Immature Granulocyte % 0.2 % Normal 0-3.0 Nucleated Red Blood Cell % 0.0 % Normal 0-0 Neutrophils # 2.7 10 Normal 1.5-8.5 Lymph # 1.4 10 Low 1.5-5.0 [place] # 0.6 10 Normal 0.0-0.8 Eos # 0.2 10 Normal 0.0-0.5 Baso # 0.0 10 Normal 0.0-0.2 Comprehensive Metabolic Profil 04/11/2021 [facility] (Interface) [phone] Glucose, Fasting 116 mg/dL High 70-100 Blood [...] Low 1.2-2.2 Total Iron Binding Capacit 04/11/2021 [facility] ical (Interface) [phone] Iron (Fe) 117 g/dL Normal 50-170 Total Iron Binding Capacity 457 g/dL High 250-450 Percent Saturation 25.6 % Normal 13.2-45.0 Laboratory test finding 04/11/2021 [facility] (Interface) [phone] Vitamin B12 Level 1779 pg/mL High 247-911 5 Total 25(Oh) Vitamin D 33.3 NG/ML Normal 30.0-100.0 Vitamin B1 Level Whole Blood 122.7 nmol/L Normal 66.5-200.0 6 U/A DIP FPA 01/18/2021 [facility] Asso ciates Color Urine YELLOW Yellow Appearance CLEAR Clear Specific [place] 1.020 1.00-1.03 PH Urine 5.5 5.0-8.0 Glucose [...] eGFR 110 # Calc 7 eGFR Non-Afr. Ugandan 95 # Calc 8 Lipid Panel 01/18/2021 [...] HCT IS 5% LESS SOURCE FOR DATA: [employer] DYN 1800 OPERATION MANUAL( AUTOMATED BLOOD COUNTS [...] Little GFR Left ESRD GFR <15 on POLITICAL SCIENCE RESEARCH ASSISTANT 5 VITAMIN B12 NORMAL RANGE NORMAL 247 - 911 PG/ML INDETERMINATE 211 - 246 PG/ML DEFICIENT LESS THAN 211 PG/ML 6 This test was developed and its performance characteristics determined by [employer]. It has not been cleared or approved by the Food and Drug Administration. Performed at: [address] [id number] Hot Top Liner Helper: Alvaro Marte MD, Phone: [phone] CKD-EPI 8 CKD-EPI Procedures Date Code Description Status 05/03/2021 70162 Office/Outpatient Established Mo d MDM 30-39 Min Completed 01/25/2021 19341 Office/Outpatient Established Mo d MDM 30-39 Min Completed Medical Devices Description No Information Available Encounters Type Date Location Provider Dx Diagnosis Office Visit 05/03/2021 2:45p [place] [facility] Josef Landaverde, FAAFP E78.5 Hyperlipidemia, unspecified F32.89 Other specified depressive e pisodes K21.9 Gastro-esophageal reflux dis ease without esophagitis Office Visit 01/25/2021 1:30p [place] [facility] Josef Landaverde, FAAFP I10 Essential (primary) [...] M.D. 04/25/2021 I10 Essential (primary) hypertension Laboratory [place] Schedule 04/25/2021 E78.5 Hyperlipidemia, unspecified [facility] an[facility] M.[facility]. 04/25/2021 E78.5 Hyperlipidemia, unspecified Labo ratory [place] Schedule 04/25/2021 L50.8 Other urticaria Gilberto Chavarria M.D. 04/25/2021 L50.8 Other urticaria Laboratory [facility] Schedule 01/25/2021 I10 Essential (primary) hypertension Clay Reynolds D.O., FAAFP 01/25/2021 F32.89 Other specified depressive episo dandy Clay Reynolds D.O., FAAFP 01/25/2021 K21.9 Gastro-esophageal reflux disease without esophagitis Clay Reynolds D.O., FAAFP 01/25/2021 E78.5 Hyperlipidemia, unspecified Delio Reynolds D.O., FAAFP 01/25/2021 R74.01 Elevated levels of transaminase & lactic acid dehydrogenase [facility] 01/18/2021 I10 Essential (primary) hypertension Caly Reynolds D.O., [facility] 01/18/2021 I10 Essential (primary) hypertension Laboratory [place] Schedule 01/18/2021 E78.5 Hyperlipidemia, unspecified Delio Reynolds D.O., [facility] 01/18/2021 E78.5 Hyperlipidemia, unspecified Labo ratory [place] Schedule Plan of Treatment Future Appointment(s):* 08/07/2021 10:00 am - Clay Reynolds D.O., [facility] at [place] [facility] * 07/25/2021 9:00 am - Laboratory [place] Schedule at [place] [facility] Functional Status Description No Information Available Mental Status Description No Information Available Referrals Description No Information Available
--- OUTSIDE RECORDS SUMMARY | 2021-05-17 08:38 | CCD | Continuity of Care Document ---
Author Author Gudelia REYNOLDS D.O. Organization Unknown Address [address] [place] [id number] Phone [phone] Problems Active Problems Provider Date Menopausal/Postmenopausal Disorders [...] 08/12/2020 Azelastine HCL (Nasal) 0.1% [place] on [place] Two Sprays In Each Nostril Twice A Day 30units Clay Reynolds D.O., FAAFP 06/15/2019 Meloxicam 15mg Tablets 1 by mouth every day 90tabs Clay Reynolds D.O., FAAFP Simvastatin 20mg Tablets Take One Tablet By Mouth Every Day 90tabs Clay Reynolds D.O., FAAFP 09/26/2018 Vitamin D-1000 Maximum Strength 1000Unit Tablets 2 po daily Clay Reyonlds D.O., FAAFP 12/02/2017 Calcium Citrate + D3 [id number] Tablets 1 bid Clay Reynolds D.O., FAAFP [...] = One Tablet 90tabs Clay Reynolds D.O., [facility] Moderiba (1000 MG Pack) 400&600mg TBPK both Unknown Drisdol 1.25mg (03368 Ut) Capsules take one capsule by mouth every week Unknown Medications Administered in Office Medication SIG Qnty Indications Ordering Provider Date Injection (SC)/(Im) Injection Gilberto Chavarria M.D. 05/29/2015 Injection (SC)/(Im) Injection Clay Reynolds D.O., [facility] 06/02/2014 Injection (SC)/(Im) Injection Clay Reynolds D.O., [facility] 12/17/2012 Immunizations CPT Code Status Date Vaccine Lot # [id number] Given 05/03/2021 Influenza Virus Vaccine, Quadrivalent, Slit Virus, Im Use 3Y & Up [id number] 59531 Given 04/06/2020 Influenza Virus Vaccine, Quadrivalent, Slit Virus, Im Use 3Y & Up [id number] 29779 Given 05/27/2019 Influenza Virus Vaccine, Quadrivalent, Slit Virus, Im Use 3Y & Up [id number] 96400 Given 03/19/2018 Influenza Virus Vaccine, Quadrivalent, Slit Virus, Im Use 3Y & Up [id number] 03010 Given 05/06/2017 Influenza Virus Vaccine, Quadrivalent, Slit Virus, Im Use 3Y & Up [id number] 17873 Given 05/16/2016 Influenza Virus Vaccine, Quadrivalent, Slit Virus, Im Use 3Y & Up [id number] 01729 Given 05/29/2015 Influenza Virus Vac. Split Virus Individuals 3 Years And Above [id number] 56941 Given 06/02/2014 Influenza Virus Vac. Split Virus Individuals 3 Years And Above [id number] 74007 Given 12/17/2012 Tdap Tetanus,Dip htheria Toxoids/Acellular Pertussis 7Yrs Or Older [id number] Vital Signs Date Vital Result Comment 05/03/2021 2:42pm BP Systolic 116 mmHg BP Diastolic 84 mmHg Body Temperature 98.3 F Heart Rate 84 /min Respiratory Rate 16 /min Height 65 inches 5'5" Weight 148.00 lb [place] Body Weight 125 lb BMI (Body Mass Index) 24.6 kg/m2 O2 % BldC Oximetry 98 % 01/25/2021 1:23pm BP Systolic 112 mmHg BP Diastolic 68 mmHg Body Temperature 97.3 F Heart Rate 72 /min Respiratory Rate 16 /min Height 65 inches 5'5" Weight 146.00 lb [place] Body Weight 125 lb BMI (Body Mass Index) 24.3 kg/m2 O2 % BldC Oximetry 98 % Results Test Acquired Date Facility Test Result H/L Range Note U/A DIP FPA 04/25/2021 [facility] Asso ciates Color Urine YELLOW Yellow Appearance CLEAR Clear Specific [place] 1.020 1.00-1.03 PH Urine 5.0 5.0-8.0 Glucose [...] eGFR 110 # Calc 2 eGFR Non-Afr. [place] 95 # Calc 3 Lipid Panel 04/25/2021 FPA/Inhouse Chol 156 mg/dL 0 - 200 Trig 118 mg/dL 40 - 200 HDL 69 mg/dL High 45 - 65 LDL_C 63 Calc Low 75 - 129 Cho/HDL Ratio 2.2 CALC Laboratory test finding 04/25/2021 FPA/Inhouse CK 56 U/L 26 - 192 CBC With Differential 04/11/2021 [facility] (Interface) [phone] White Blood Count 4.9 10 Normal 4.0-10.0 [...] 36.0-66.0 Lymph % 28.4 % Normal 24.0-44.0 [place] % 11.2 % High 2.0-8.0 Eos % 4.5 % High 0.0-3.0 Baso % 0.4 % Normal 0.0-1.0 Immature Granulocyte % 0.2 % Normal 0-3.0 Nucleated Red Blood Cell % 0.0 % Normal 0-0 Neutrophils # 2.7 10 Normal 1.5-8.5 Lymph # 1.4 10 Low 1.5-5.0 [place] # 0.6 10 Normal 0.0-0.8 Eos # 0.2 10 Normal 0.0-0.5 Baso # 0.0 10 Normal 0.0-0.2 Comprehensive Metabolic Profil 04/11/2021 [facility] (Interface) [phone] Glucose, Fasting 116 mg/dL High 70-100 Blood [...] Low 1.2-2.2 Total Iron Binding Capacit 04/11/2021 [facility] ical (Interface) [phone] Iron (Fe) 117 g/dL Normal 50-170 Total Iron Binding Capacity 457 g/dL High 250-450 Percent Saturation 25.6 % Normal 13.2-45.0 Laboratory test finding [facility] [phone] Vitamin B12 Level 1779 pg/mL High 247-911 5 Total 25(Oh) Vitamin D 33.3 NG/ML Normal 30.0-100.0 Vitamin B1 Level Whole Blood 122.7 nmol/L Normal 66.5-200.0 6 U/A DIP FPA 01/18/2021 [facility] Asso ciates Color Urine YELLOW Yellow Appearance CLEAR Clear Specific [place] 1.020 1.00-1.03 PH Urine 5.5 5.0-8.0 Glucose [...] eGFR 110 # Calc 7 eGFR Non-Afr. [place] 95 # Calc 8 Lipid Panel 01/18/2021 [...] HCT IS 5% LESS SOURCE FOR DATA: [employer] DYN 1800 OPERATION MANUAL( AUTOMATED BLOOD COUNTS [...] Little GFR Left ESRD GFR <15 on [employer] ROLLING ROOM 5 VITAMIN B12 NORMAL RANGE NORMAL 247 - 911 PG/ML INDETERMINATE 211 - 246 PG/ML DEFICIENT LESS THAN 211 PG/ML 6 This test was developed and its performance characteristics determined by [employer]. It has not been cleared or approved by the Food and Drug Administration. Performed at: [address] [id number] Program Management Manager: Alvaro Marte MD, Phone: [phone] CKD-EPI 8 CKD-EPI Procedures Date Code Description Status 05/03/2021 80120 Office/Outpatient Established Mo d MDM 30-39 Min Completed 01/25/2021 02076 Office/Outpatient Established Mo d MDM 30-39 Min Completed Medical Devices Description No Information Available Encounters Type Date Location Provider Dx Diagnosis Office Visit 05/03/2021 2:45p [place] Office Josef Landaverde, FAAFP E78.5 Hyperlipidemia, unspecified F32.89 Other specified depressive e pisodes K21.9 Gastro-esophageal reflux dis ease without esophagitis Z23 Encounter for immunization Office Visit 01/25/2021 1:30p [place] [facility] Josef Landaverde, FAAFP I10 Essential (primary) [...] disease without esophagitis Clay Reynolds D.O., FAAFP 05/03/2021 Z23 Encounter for immunization Sharonda Reynodls D.O., FAAFP 04/25/2021 I10 Essential (primary) hypertension Gilberto Chavarria M.D. 04/25/2021 I10 Essential (primary) hypertension Laboratory [place] Schedule 04/25/2021 E78.5 [facility], [facility] 04/25/2021 E78.5 Hyperlipidemia, unspecified Labo ratory [place] Schedule 04/25/2021 L50.8 Other urticaria Gilberto Chavarria M.D. 04/25/2021 L50.8 Other urticaria Laboratory [place] [facility] Schedule 01/25/2021 I10 Essential (primary) hypertension Clay Reynolds D.O., FAAFP 01/25/2021 F32.89 Other specified depressive episo dandy Clay Reynolds D.O., FAAFP 01/25/2021 K21.9 Gastro-esophageal reflux disease without esophagitis Clay Reynolds D.O., FAAFP 01/25/2021 E78.5 Hyperlipidemia, unspecified Delio Renyolds D.O., FAAFP 01/25/2021 R74.01 Elevated levels of transaminase & lactic acid dehydrogenase Clay Reynolds D.O., FAAFP 01/18/2021 I10 Essential (primary) hypertension Clay Reynolds D.O., FAAFP 01/18/2021 I10 Essential (primary) hypertension Laboratory [place] Schedule 01/18/2021 E78.5 Hyperlipidemia, unspecified Delio Reynolds D.O., FAAFP 01/18/2021 E78.5 Hyperlipidemia, unspecified Labo ratory [place] Schedule Plan of Treatment Future Appointment(s):* 08/07/2021 10:00 am - Clay Reynolds D.O., [facility] at [place] Office * 07/25/2021 9:00 am - Laboratory [place] Schedule at [facility] [place] [facility] [place] Functional Status Description No Information Available Mental Status Description No Information Available Referrals Description No Information Available
--- OUTSIDE RECORDS SUMMARY | 2021-05-17 08:38 | CCD | Continuity of Care Document ---
Author Author Gudelia Miranda Organization Unknown Address [address] [facility] [address] [place] [address] Phone [phone] Problems Active Problems Provider Date Menopausal/Postmenopausal Disorders [...] 08/12/2020 Azelastine HCL (Nasal) 0.1% [place] on [place] Two Sprays In Each Nostril Twice A Day 30units Clay Galarza D.O., FAAFP 06/15/2019 Meloxicam 15mg Tablets 1 by mouth every day 90tabs Clay Galarza D.O., FAAFP Simvastatin 20mg Tablets Take One Tablet By Mouth Every Day 90tabs Clay Galarza D.O., FAAFP 09/26/2018 Vitamin D-1000 Maximum Strength 1000Unit Tablets 2 po daily Clay Galarza D.O., FAAFP 12/02/2017 Calcium Citrate + D3 [id number] Tablets 1 bid Clay Galarza D.O., FAAFP [...] = One Tablet 90tabs Clay Galarza D.O., [facility] Moderiba (1000 MG Pack) 400&600mg TBPK both Unknown Medications Administered in Office Medication SIG Qnty Indications Ordering Provider Date Injection (SC)/(Im) Injection Gilberto Chavarria M.D. 05/29/2015 Injection (SC)/(Im) Injection Clay Galarza D.O., [facility] 06/02/2014 Injection (SC)/(Im) Injection Clay Galarza D.O., [facility] 12/17/2012 Immunizations CPT Code Status Date Vaccine Lot # [id number] Given 04/06/2020 Influenza Virus Vaccine, Quadrivalent, Slit Virus, Im Use 3Y & Up [id number] 49031 Given 05/27/2019 Influenza Virus Vaccine, Quadrivalent, Slit Virus, Im Use 3Y & Up [id number] 88012 Given 03/19/2018 Influenza Virus Vaccine, Quadrivalent, Slit Virus, Im Use 3Y & Up [id number] 08412 Given 05/06/2017 Influenza Virus Vaccine, Quadrivalent, Slit Virus, Im Use 3Y & Up [id number] 04012 Given 05/16/2016 Influenza Virus Vaccine, Quadrivalent, Slit Virus, Im Use 3Y & Up [id number] 06836 Given 05/29/2015 Influenza Virus Vac. Split Virus Individuals 3 Years And Above [id number] 38881 Given 06/02/2014 Influenza Virus Vac. Split Virus Individuals 3 Years And Above [id number] 61429 Given 12/17/2012 Tdap Tetanus,Dip htheria Toxoids/Acellular Pertussis 7Yrs Or Older [id number] Vital Signs Date Vital Result Comment 01/25/2021 1:23pm BP Systolic 112 mmHg BP Diastolic 68 mmHg Body Temperature 97.3 F Heart Rate 72 /min Respiratory Rate 16 /min Height 65 inches 5'5" Weight 146.00 lb [place] Body Weight 125 lb BMI (Body Mass Index) 24.3 kg/m2 O2 % BldC Oximetry 98 % 10/19/2020 3:03pm BP Systolic 114 mmHg BP Diastolic 68 mmHg Body Temperature 98.1 F Heart Rate 88 /min Respiratory Rate 16 /min Height 65 inches 5'5" Weight 144.00 lb [place] Body Weight 125 lb BMI (Body Mass Index) 24.0 kg/m2 O2 % BldC Oximetry 98 % Results Test Acquired Date Facility Test Result H/L Range Note U/A DIP FPA 04/25/2021 [facility] Asso ciates Color Urine YELLOW Yellow Appearance CLEAR Clear Specific [place] 1.020 1.00-1.03 PH Urine 5.0 5.0-8.0 Glucose [...] eGFR 110 # Calc 2 eGFR Non-Afr. [place] 95 # Calc 3 Lipid Panel 04/25/2021 FPA/Inhouse Chol 156 mg/dL 0 - 200 Trig 118 mg/dL 40 - 200 HDL 69 mg/dL High 45 - 65 LDL_C 63 Calc Low 75 - 129 Cho/HDL Ratio 2.2 CALC Laboratory test finding 04/25/2021 FPA/Inhouse CK 56 U/L 26 - 192 CBC With Differential 04/11/2021 [facility] (Interface) [phone] White Blood Count 4.9 10 Normal 4.0-10.0 [...] 36.0-66.0 Lymph % 28.4 % Normal 24.0-44.0 [place] % 11.2 % High 2.0-8.0 Eos % 4.5 % High 0.0-3.0 Baso % 0.4 % Normal 0.0-1.0 Immature Granulocyte % 0.2 % Normal 0-3.0 Nucleated Red Blood Cell % 0.0 % Normal 0-0 Neutrophils # 2.7 10 Normal 1.5-8.5 Lymph # 1.4 10 Low 1.5-5.0 [place] # 0.6 10 Normal 0.0-0.8 Eos # 0.2 10 Normal 0.0-0.5 Baso # 0.0 10 Normal 0.0-0.2 Comprehensive Metabolic Profil 04/11/2021 [facility] (Interface) [phone] Glucose, Fasting 116 mg/dL High 70-100 Blood [...] Low 1.2-2.2 Total Iron Binding Capacit 04/11/2021 [facility] ical (Interface) [phone] Iron (Fe) 117 g/dL Normal 50-170 Total Iron Binding Capacity 457 g/dL High 250-450 Percent Saturation 25.6 % Normal 13.2-45.0 Laboratory test finding 04/11/2021 [facility] (Interface) [phone] Vitamin B12 Level 1779 pg/mL High 247-911 5 Total 25(Oh) Vitamin D 33.3 NG/ML Normal 30.0-100.0 Vitamin B1 Level Whole Blood 122.7 nmol/L Normal 66.5-200.0 6 U/A DIP FPA 01/18/2021 [facility] Asso ciates Color Urine YELLOW Yellow Appearance CLEAR Clear Specific [place] 1.020 1.00-1.03 PH Urine 5.5 5.0-8.0 Glucose [...] eGFR 110 # Calc 7 eGFR Non-Afr. [place] 95 # Calc 8 Lipid Panel 01/18/2021 [...] HCT IS 5% LESS SOURCE FOR DATA: [employer] 1800 OPERATION MANUAL( AUTOMATED BLOOD COUNTS AND [...] Little GFR Left ESRD GFR <15 on [employer] 5 VITAMIN B12 NORMAL RANGE NORMAL 247 - 911 PG/ML INDETERMINATE 211 - 246 PG/ML DEFICIENT LESS THAN 211 PG/ML 6 This test was developed and its performance characteristics determined by [employer]. It has not been cleared or approved by the Food and Drug Administration. Performed at: [address] [id number] Tugger Operator: Alvaro Marte MD, Phone: [phone] CKD-EPI 8 CKD-EPI Procedures Date Code Description Status 01/25/2021 38021 Office/Outpatient Established Mo d MDM 30-39 Min Completed Medical Devices Description No Information Available Encounters Type Date Location Provider Dx Diagnosis Office Visit 01/25/2021 1:30p [place] [facility] Josef Landaverde, FAAFP I10 Essential (primary) hypertension F32.89 Other specified depressive e pisodes K21.9 Gastro-esophageal reflux dis ease without esophagitis E78.5 Hyperlipidemia, unspecified R74.01 Elevation of levels of liver transaminase levels Assessments Date Code Description Provider 04/25/2021 I10 Essential (primary) hypertension Gilberto Chavarria M.D. 04/25/2021 I10 Essential (primary) hypertension Laboratory [place] Schedule 04/25/2021 E78.5 Hyperlipidemia, unspecified [facility] M.[facility] 04/25/2021 E78.5 Hyperlipidemia, unspecified Labo ratory [place] Schedule 04/25/2021 L50.8 Other urticaria Gilberto Chavarria M.D. 04/25/2021 L50.8 Other urticaria [facility] [place] [facility] Schedule 01/25/2021 I10 Essential (primary) hypertension Clay Galarza D.O., FAAFP 01/25/2021 F32.89 Other specified depressive episo dandy Clay Galarza D.O., FAAFP 01/25/2021 K21.9 Gastro-esophageal reflux disease without esophagitis Clay Galarza D.O., FAAFP 01/25/2021 E78.5 Hyperlipidemia, unspecified Delio Galarza D.O., FAAFP 01/25/2021 R74.01 Elevated levels of transaminase & lactic acid dehydrogenase Clay Galarza D.O., FAAFP 01/18/2021 I10 Essential (primary) hypertension Clay Galarza D.O., FAAFP 01/18/2021 I10 Essential (primary) hypertension Laboratory [place] Schedule 01/18/2021 E78.5 Hyperlipidemia, unspecified Delio cirilo Galarza D.O., FAAFP 01/18/2021 E78.5 Hyperlipidemia, unspecified Labo ratory [place] Schedule Plan of Treatment Future Appointment(s):* 05/03/2021 2:45 pm - Clay Galarza D.O., [facility] at [place] Office Functional Status Description No Information Available Mental Status Description No Information Available Referrals Description No Information Available
--- OUTSIDE RECORDS SUMMARY | 2021-05-17 08:39 | CCD ---
Author Author [facility] Organization [facility] Address Unknown Phone Unavailable Care Team Providers Care Treasury Accountant Name Role Phone Mireya, L Lashae CHEESE COOKER Unavailable Unavailable Mireya, L Lashae CHEESE COOKER Unavailable Unavailable Mireya, L Lashae CHEESE COOKER Unavailable Unavailable Mireya, L Lashae CHEESE COOKER Unavailable Unavailable Mireya, L Lashae CHEESE COOKER Unavailable Unavailable Mireya, L Lashae CHEESE COOKER Unavailable Unavailable Mireya, L Lashae CHEESE COOKER Unavailable Unavailable Mireya, L Lashae CHEESE COOKER Unavailable Unavailable Mireya, L Lashae CHEESE COOKER Unavailable Unavailable Mireya, L Lashae CHEESE COOKER Unavailable Unavailable Mireya, L Lashae CHEESE COOKER Unavailable Unavailable Mireya, L Lashae CHEESE COOKER Unavailable Unavailable Mireya, L Lashae CHEESE COOKER Unavailable Unavailable Mireya, L Lashae CHEESE COOKER Unavailable Unavailable Mireya, L Lashae CHEESE COOKER Unavailable Unavailable Mireya, L Lashae CHEESE COOKER Unavailable Unavailable Mireya, L Lashae CHEESE COOKER Unavailable Unavailable Mireya, L Lashae CHEESE COOKER Unavailable Unavailable Mireya, L Lashae CHEESE COOKER Unavailable Unavailable Mireya, L Lashae CHEESE COOKER Unavailable Unavailable Mireya, L Lashae CHEESE COOKER Unavailable Unavailable Mireya, L Lashae CHEESE COOKER Unavailable Unavailable Mireya, L Lashae CHEESE COOKER Unavailable Unavailable Mireya, L Lashae CHEESE COOKER Unavailable Unavailable Mireya, L Lashae CHEESE COOKER Unavailable Unavailable VIDHI OSCAR MD Unavailable Unavailable REINDL, VIDHI GAMEZ Unavailable Unavailable REINDL, VIDHI GAMEZ Unavailable Unavailable REINDL, VIDHI GAMEZ Unavailable Unavailable REINDL, VIDHI GAMEZ Unavailable Unavailable REINDL, VIDHI GAMEZ Unavailable Unavailable REINDL, VIDHI GAMEZ Unavailable Unavailable REINDL, VIDHI GAMEZ Unavailable Unavailable REINDL, VIDHI GAMEZ Unavailable Unavailable REINDL, VIDHI GAMEZ Unavailable Unavailable REINDL, VIDHI GAMEZ Unavailable Unavailable REINDL, VIDHI GAMEZ Unavailable Unavailable REINDL, VIDHI GAMEZ Unavailable Unavailable REINDL, VIDHI GAMEZ Unavailable Unavailable REINDL, VIDHI GAMEZ Unavailable Unavailable REINDL, VIDHI GAMEZ Unavailable Unavailable REINDL, VIDHI GAMEZ Unavailable Unavailable REINDL, VIDHI GAMEZ Unavailable Unavailable REINDL, VIDHI GAMEZ Unavailable Unavailable REINDL, VIDHI GAMEZ Unavailable Unavailable REINDL, VIDHI GAMEZ Unavailable Unavailable REINDL, VIDHI GAMEZ Unavailable Unavailable REINDL, VIDHI GAMEZ Unavailable Unavailable REINDL, VIDHI GAMEZ Unavailable Unavailable REINDL, VIDHI GAMEZ Unavailable Unavailable REINDL, VIDHI GAMEZ Unavailable Unavailable REINDL, VIDHI GAMEZ Unavailable Unavailable REINDL, VIDHI GAMEZ Unavailable Unavailable REINDL, VIDHI GAMEZ Unavailable Unavailable REINDL, VIDHI GAMEZ Unavailable Unavailable REINDL, VIDHI GAMEZ Unavailable Unavailable REINDL, VIDHI GAMEZ Unavailable Unavailable REINDL, VIDHI GAMEZ Unavailable Unavailable REINDL, VIDHI GAMEZ Unavailable Unavailable REINDL, VIDHI GAMEZ Unavailable Unavailable REINDL, VIDHI GAMEZ Unavailable Unavailable REINDL, VIDHI GAMEZ Unavailable Unavailable REINDL, VIDHI GAMEZ Unavailable Unavailable REINDL, VIDHI GAMEZ Unavailable Unavailable REINDL, VIDHI GAMEZ Unavailable Unavailable REINDL, VIDHI GAMEZ Unavailable Unavailable REINDL, VIDHI GAMEZ Unavailable Unavailable Rounds, M VICKIE CHEESE COOKER Unavailable Unavailable Rounds, M VICKIE CHEESE COOKER Unavailable Unavailable Rounds, M VICKIE CHEESE COOKER Unavailable Unavailable Rounds, M VICKIE CHEESE COOKER Unavailable Unavailable Rounds, M VICKIE CHEESE COOKER Unavailable Unavailable Rounds, M VICKIE CHEESE COOKER Unavailable Unavailable Rounds, M VICKIE CHEESE COOKER Unavailable Unavailable Rounds, M VICKIE CHEESE COOKER Unavailable Unavailable Rounds, M VICKIE CHEESE COOKER Unavailable Unavailable Rounds, M VICKIE CHEESE COOKER Unavailable Unavailable Rounds, M VICKIE CHEESE COOKER Unavailable Unavailable Rounds, M VICKIE CHEESE COOKER Unavailable Unavailable Rounds, M VICKIE CHEESE COOKER Unavailable Unavailable Rounds, M VICKIE CHEESE COOKER Unavailable Unavailable Rounds, M VICKIE CHEESE COOKER Unavailable Unavailable Rounds, M VICKIE CHEESE COOKER Unavailable Unavailable Rounds, M VICKIE CHEESE COOKER Unavailable Unavailable Rounds, M VICKIE CHEESE COOKER Unavailable Unavailable Rounds, M VICKIE CHEESE COOKER Unavailable Unavailable Rounds, M VICKIE CHEESE COOKER Unavailable Unavailable Rounds, M VICKIE CHEESE COOKER Unavailable Unavailable Rounds, M VICKIE CHEESE COOKER Unavailable Unavailable Rounds, M VICKIE CHEESE COOKER Unavailable Unavailable Rounds, M VICKIE CHEESE COOKER Unavailable Unavailable Rounds, M VICKIE CHEESE COOKER Unavailable Unavailable Rounds, M VICKIE CHEESE COOKER Unavailable Unavailable Rounds, M VICKIE CHEESE COOKER Unavailable Unavailable Rounds, M VICKIE CHEESE COOKER Unavailable Unavailable Rounds, M VICKIE CHEESE COOKER Unavailable Unavailable Rounds, M VICKIE CHEESE COOKER Unavailable Unavailable Rounds, M VICKIE CHEESE COOKER Unavailable Unavailable Rounds, M VICKIE CHEESE COOKER Unavailable Unavailable Rounds, M VICKIE CHEESE COOKER Unavailable Unavailable Rounds, M VICKIE CHEESE COOKER Unavailable Unavailable Rounds, M VICKIE CHEESE COOKER Unavailable Unavailable Rounds, M VICKIE CHEESE COOKER Unavailable Unavailable Rounds, M VICKIE CHEESE COOKER Unavailable Unavailable Rounds, M VICKIE CHEESE COOKER Unavailable Unavailable Rounds, M VICKIE CHEESE COOKER Unavailable Unavailable Rounds, M VICKIE CHEESE COOKER Unavailable Unavailable Rounds, M VICKIE CHEESE COOKER Unavailable Unavailable Rounds, M VICKIE CHEESE COOKER Unavailable Unavailable Rounds, M VICKIE CHEESE COOKER Unavailable Unavailable Rounds, M VICKIE CHEESE COOKER Unavailable Unavailable Rounds, M VICKIE CHEESE COOKER Unavailable Unavailable Rounds, M VICKIE CHEESE COOKER Unavailable Unavailable Rounds, M VICKIE CHEESE COOKER Unavailable Unavailable Rounds, M VICKIE CHEESE COOKER Unavailable Unavailable Rounds, M VICKIE CHEESE COOKER Unavailable Unavailable Rounds, M VICKIE CHEESE COOKER Unavailable Unavailable Rounds, M VICKIE CHEESE COOKER Unavailable Unavailable Rounds, M VICKIE CHEESE COOKER Unavailable Unavailable Rounds, M VICKIE CHEESE COOKER Unavailable Unavailable Rounds, M VICKIE CHEESE COOKER Unavailable Unavailable Rounds, M VICKIE CHEESE COOKER Unavailable Unavailable Rounds, M VICKIE CHEESE COOKER Unavailable Unavailable Rounds, M VICKIE CHEESE COOKER Unavailable Unavailable Rounds, M VICKIE CHEESE COOKER Unavailable Unavailable Rounds, M VICKIE CHEESE COOKER Unavailable Unavailable Rounds, M VICKIE CHEESE COOKER Unavailable Unavailable Rounds, M VICKIE CHEESE COOKER Unavailable Unavailable Rounds, M VICKIE CHEESE COOKER Unavailable Unavailable Rounds, M VICKIE CHEESE COOKER Unavailable Unavailable [place], Fiona APPLICATIONS ADMINISTRATOR Unavailable Unavailable [place], Fiona APPLICATIONS ADMINISTRATOR Unavailable Unavailable [place], Fiona APPLICATIONS ADMINISTRATOR Unavailable Unavailable [place], Fiona APPLICATIONS ADMINISTRATOR Unavailable Unavailable [place], Fiona APPLICATIONS ADMINISTRATOR Unavailable Unavailable [place], Fiona APPLICATIONS ADMINISTRATOR Unavailable Unavailable [place], Fiona APPLICATIONS ADMINISTRATOR Unavailable Unavailable [place], Fiona APPLICATIONS ADMINISTRATOR Unavailable Unavailable [place], Fiona APPLICATIONS ADMINISTRATOR Unavailable Unavailable [place], Fiona APPLICATIONS ADMINISTRATOR Unavailable Unavailable [place], Fiona APPLICATIONS ADMINISTRATOR Unavailable Unavailable [place], Fiona APPLICATIONS ADMINISTRATOR Unavailable Unavailable [place], Fiona APPLICATIONS ADMINISTRATOR Unavailable Unavailable [place], Fiona APPLICATIONS ADMINISTRATOR Unavailable Unavailable [place], Fiona APPLICATIONS ADMINISTRATOR Unavailable Unavailable [place], Fiona APPLICATIONS ADMINISTRATOR Unavailable Unavailable [place], Fiona APPLICATIONS ADMINISTRATOR Unavailable Unavailable [place], Fiona APPLICATIONS ADMINISTRATOR Unavailable Unavailable [place], Fiona APPLICATIONS ADMINISTRATOR Unavailable Unavailable [place], Fiona APPLICATIONS ADMINISTRATOR Unavailable Unavailable [place], Fiona APPLICATIONS ADMINISTRATOR Unavailable Unavailable [place], Basilia Nunn APPLICATIONS ADMINISTRATOR Unavailable Unavailable [place], Fiona APPLICATIONS ADMINISTRATOR Unavailable Unavailable [place], Fiona APPLICATIONS ADMINISTRATOR Unavailable Unavailable [place], Fiona APPLICATIONS ADMINISTRATOR Unavailable Unavailable [place], Fiona APPLICATIONS ADMINISTRATOR Unavailable Unavailable [place], Fiona APPLICATIONS ADMINISTRATOR Unavailable Unavailable [place], Fiona APPLICATIONS ADMINISTRATOR Unavailable Unavailable [place], Fiona APPLICATIONS ADMINISTRATOR Unavailable Unavailable [place], Fiona APPLICATIONS ADMINISTRATOR Unavailable Unavailable [place], Fiona APPLICATIONS ADMINISTRATOR Unavailable Unavailable [place], Fiona APPLICATIONS ADMINISTRATOR Unavailable Unavailable [place], Fiona APPLICATIONS ADMINISTRATOR Unavailable Unavailable [place], Fiona APPLICATIONS ADMINISTRATOR Unavailable Unavailable [place], Fiona APPLICATIONS ADMINISTRATOR Unavailable Unavailable [place], Fiona APPLICATIONS ADMINISTRATOR Unavailable Unavailable Fish, J Clay Unavailable Unavailable Fish, J Clay Unavailable Unavailable Fish, J Clay Unavailable Unavailable Fish, J Clay Unavailable Unavailable Fish, J Clay Unavailable Unavailable Fish, J Clay Unavailable Unavailable Fish, J Clay Unavailable Unavailable Fish, J Clay Unavailable Unavailable Fish, J Clay Unavailable Unavailable Fish, J Clay Unavailable Unavailable Fish, J Clay Unavailable Unavailable Fish, J Clay Unavailable Unavailable Fish, J Clay Unavailable Unavailable Fish, J Clay Unavailable Unavailable Fish, J Clay Unavailable Unavailable Fish, J Clay Unavailable Unavailable Fish, J Clay Unavailable Unavailable Fish, J Clay Unavailable Unavailable Fish, J Clay Unavailable Unavailable Fish, J Clay Unavailable Unavailable Fish, J Clay Unavailable Unavailable Fish, J Clay Unavailable Unavailable Fish, J Clay Unavailable Unavailable Fish, J Clay Unavailable Unavailable Fish, J Clay Unavailable Unavailable Fish, J Clay Unavailable Unavailable Fish, J Clay Unavailable Unavailable Fish, J Clay Unavailable Unavailable Fish, J Clay Unavailable Unavailable Fish, J Clay Unavailable Unavailable Fish, J Clay Unavailable Unavailable Fish, J Clay Unavailable Unavailable Fish, J Clay Unavailable Unavailable Fish, J Clay Unavailable Unavailable Fish, J Clay Unavailable Unavailable Fish, J Clay Unavailable Unavailable Fish, J Clay Unavailable Unavailable Fish, J Clay Unavailable Unavailable Fish, J Clay Unavailable Unavailable Fish, J Clay Unavailable Unavailable Fish, J Clay Unavailable Unavailable Fish, J Clay Unavailable Unavailable Fish, J Clay Unavailable Unavailable Fish, J Clay Unavailable Unavailable Fish, J Clay Unavailable Unavailable Fish, J Clay Unavailable Unavailable Fish, J Clay Unavailable Unavailable Fish, J Clay Unavailable Unavailable Fish, J Clay Unavailable Unavailable Fish, J Clay Unavailable Unavailable Fish, J Clay Unavailable Unavailable Fish, J Clay Unavailable Unavailable Fish, J Clay Unavailable Unavailable Fish, J Clay Unavailable Unavailable Fish, J Clay Unavailable Unavailable Fish, J Clay Unavailable Unavailable Fish, J Clay Unavailable Unavailable Fish, J Clay Unavailable Unavailable Fish, J Clay Unavailable Unavailable Fish, J Clay Unavailable Unavailable Fish, J Clay Unavailable Unavailable Fish, J Clay Unavailable Unavailable Fish, J Clay Unavailable Unavailable Fish, J Clay Unavailable Unavailable Fish, J Clay Unavailable Unavailable Fish, J Clay Unavailable Unavailable Fish, J Clay Unavailable Unavailable Fish, J Clay Unavailable Unavailable Fish, J Clay Unavailable Unavailable Fish, J Clay Unavailable Unavailable Fish, J Clay Unavailable Unavailable Fish, J Clay Unavailable Unavailable Fish, J Clay Unavailable Unavailable Fish, J Clay Unavailable Unavailable Fish, J Clay Unavailable Unavailable Fish, J Clay Unavailable Unavailable Fish, J Clay Unavailable Unavailable Fish, J Clay Unavailable Unavailable Fish, J Clay Unavailable Unavailable Fish, J Clay Unavailable Unavailable Fish, J Clay Unavailable Unavailable Fish, J Clay Unavailable Unavailable Fish, J Clay Unavailable Unavailable Fish, J Clay Unavailable Unavailable Mosse Boggs MD Unavailable Unavailable Moses Boggs MD Unavailable Unavailable Moses Boggs MD Unavailable Unavailable Moses Boggs MD Unavailable Unavailable Moses Boggs MD Unavailable Unavailable Moses Boggs MD Unavailable Unavailable Moses Boggs MD Unavailable Unavailable De José MiguelMoses natarajan MD Unavailable Unavailable De Moses Valdez MD Unavailable Unavailable De José MiguelMoses natarajan MD Unavailable Unavailable De José MiguelMoses MD Unavailable Unavailable De José MiguelMoses natarajan MD Unavailable Unavailable De José MiguelMoses natarajan MD Unavailable Unavailable De Moses Valdez MD Unavailable Unavailable De José MiguelMoses MD Unavailable Unavailable De José MiguelMoses MD Unavailable Unavailable De José MiguelMoses MD Unavailable Unavailable De José MiguelMoses MD Unavailable Unavailable De José MiguelMoses MD Unavailable Unavailable De José MiguelMoses MD Unavailable Unavailable De José MiguelMoses MD Unavailable Unavailable De José MiguelMoses MD Unavailable Unavailable De José MiguelMoses MD Unavailable Unavailable De José MiguelMoses MD Unavailable Unavailable Moses Boggs MD Unavailable Unavailable De Moses Valdez MD Unavailable Unavailable De José MiguelMoses MD Unavailable Unavailable De Moses Valdez MD Unavailable Unavailable De José MiguelMoses MD Unavailable Unavailable De Moses Valdez MD Unavailable Unavailable De Moses Valdez MD Unavailable Unavailable De Moses Valdez MD Unavailable Unavailable De José MiguelMoses MD Unavailable Unavailable De José MiguelMoses MD Unavailable Unavailable De Moses Valdez MD Unavailable Unavailable Moses Boggs MD Unavailable Unavailable De Moses Valdez MD Unavailable Unavailable De Moses Valdez MD Unavailable Unavailable De Moses Valdez MD Unavailable Unavailable De José MiguelMoses natarajan MD Unavailable Unavailable De José MiguelMoses natarajan MD Unavailable Unavailable De Moses Valdez MD Unavailable Unavailable De Moses Valdez MD Unavailable Unavailable De Moses Valdez MD Unavailable Unavailable De Moses Valdez MD Unavailable Unavailable De Moses Valdez MD Unavailable Unavailable De Moses Valdez MD Unavailable Unavailable Moses Boggs MD Unavailable Unavailable De Moses Valdez MD Unavailable Unavailable De José MiguelMoses natarajan MD Unavailable Unavailable De José MiguelMoses natarajan MD Unavailable Unavailable De Moses Valdez MD Unavailable Unavailable De José Miguel, Moses Raphael MD Unavailable Unavailable De José Miguel, Moses Raphael MD Unavailable Unavailable De José Miguel, Moses Raphael MD Unavailable Unavailable De José Miguel, Moses Raphael MD Unavailable Unavailable De José Miguel, Moses Raphael MD Unavailable Unavailable De José Miguel, Moses Raphael MD Unavailable Unavailable De José Miguel, Moses Raphael MD Unavailable Unavailable De José Miguel, Moses Raphael MD Unavailable Unavailable De José Miguel, Moses Raphael MD Unavailable Unavailable De José Miguel, Moses Raphael MD Unavailable Unavailable De José Miguel, Moses Raphael MD Unavailable Unavailable De José Miguel, Moses Raphael MD Unavailable Unavailable De José Miguel, Moses Raphael MD Unavailable Unavailable De José Miguel, Moses Raphael MD Unavailable Unavailable De José Miguel, Moses Raphael MD Unavailable Unavailable De José Miguel, Moses Raphael MD Unavailable Unavailable De José Miguel, Moses Raphael MD Unavailable Unavailable De José Miguel, Moses Raphael MD Unavailable Unavailable De José Miguel, Moses Raphael MD Unavailable Unavailable De José Miguel, Msoes Raphael MD Unavailable Unavailable De José Miguel, Moses Raphael MD Unavailable Unavailable De José Miguel, Moses Raphael MD Unavailable Unavailable De José Miguel, Moses Raphael MD Unavailable Unavailable De José Miguel, Moses Raphael MD Unavailable Unavailable De José Miguel, Moses Raphael MD Unavailable Unavailable De José Miguel, Moses Raphael MD Unavailable Unavailable De José Miguel, Moses Raphael MD Unavailable Unavailable De José Miguel, Moses Raphael MD Unavailable Unavailable De José Miguel, Moses Raphael MD Unavailable Unavailable De José Miguel, Moses Raphael MD Unavailable Unavailable De José Miguel, Moses Raphael MD Unavailable Unavailable De José Miguel, Moses Raphael MD Unavailable Unavailable Re-disclosure Warning The records that you are about to access may contain information from federally-assisted alcohol or drug abuse programs. If such information is present, then the following federally mandated warning applies: This information has been disclosed to you from records protected by federal confidentiality rules (42 CFR part 2). The federal rules prohibit you from making any further disclosure of this information unless further disclosure is expressly permitted by the written consent of the person to whom it pertains or as otherwise permitted by 42 CFR part 2. A general authorization for the release of medical or other information is NOT sufficient for this purpose. The Federal rules restrict any use of the information to criminally investigate or prosecute any alcohol or drug abuse patient.The records that you are about to access may contain highly sensitive health information, the redisclosure of which is protected by Article 27-F of the [facility] Public Health law. If you continue you may have access to information: Regarding HIV / AIDS; Provided by facilities licensed or operated by the [facility] Office of Mental Health; or Provided by the [facility] Office for People With Developmental Disabilities. If such information is present, then the following [facility] mandated warning applies: This information has been disclosed to you from confidential records which are protected by state law. State law prohibits you from making any further disclosure of this information without the specific written consent of the person to whom it pertains, or as otherwise permitted by law. Any unauthorized further disclosure in violation of state law may result in a fine or shelter sentence or both. A general authorization for the release of medical or other information is NOT sufficient authorization for further disc losure. Family History Family Member Name Family Member Gender Family Member Status Date o f Status Description Data Source(s) Unknown Female Problem [facility] ([facility] Unknown Male Problem [facility] ([facility] Unknown Unknown Problem [facility] ([facility] Unknown Unknown Problem [facility] ([facility], ) Unknown Unknown Problem [facility] ([facility], ) Unknown Unknown Problem [facility] ([facility], ) Unknown Unknown Problem [facility] ([facility], ) Unknown Unknown Encounters Encounter Providers Location Date Indications Data Source(s ) Outpatient Attender: Clay Galarza [place] [facility] 05/03/2021 02:45:0 0 PM EDT MED[facility] ([facility] Outpatient Attender: Donavon Boggs MD [facility] Internal Med at [place] 04/16/2021 01:15:00 PM EDT [facility] ([facility] ( [place]) [facility] Yearly DISABILITIES SERVICES OFFICER Exam [address] [place] [address] 03/01/2021 12:00:00 AM EDT eCW1 ([facility]) Outpatient Attender: VIDHI Ramon/Lazaro/[place]ison/[place] 02/05/2021 03:00:00 PM EDT [facility] ([facility] Outpatient Attender: Lashae Ramon/Lazaro/Addison/Lyssa 01/29/2021 09:00:00 AM EDT [facility] ([facility] Out[facility] Attender: [facility] 01/25/2021 01:30:0 0 PM EDT [facility] ([facility] Postop visit [address] [facility] [address] 01/23/2021 12:00:00 AM EDT eCW1 ([facility]) Outpatient Attender: Arline Gunter [facility] Main Office 01/16/2021 09:15:00 AM EDT [facility] ([facility] [place] [address] [facility] [place] [address] 12/20/2020 12:00:00 AM EDT eCW1 ([facility]) Outpatient [facility] [facility] [place] [address] 11/22/2020 12:00:00 AM EDT eCW1 ([facility] 10/19/[facility] 03:00:0 0 PM EDT [facility] ([facility] [place] [address] [facility] [address] 09/26/2020 12:00:00 AM EST eCW1 ([facility]) [place]patient [address] [facility] [place] [address] 09/13/2020 12:00:00 AM EST eCW1 ([facility]) Unknown [address] [facility] [place] [address] 09/08/2020 12:00:00 AM EST eCW1 ([facility]) (MMS 1) [facility] [address] [place] [address] [place] [address] 09/06/2020 12:00:00 AM EST eCW1 ([facility]) Outpatient Attender: VICKIE Bailon [facility] Office 09/04/2020 0 2:30:00 PM EST [facility] ([facility] ) Outpatient Attender: VICKIE Bailon [facility] Office 08/21/2020 1 2:15:00 PM EST [facility] ([facility] ) [facility] 07/06/2020 12:45:0 0 PM EST [facility] ([facility] 04/06/2020 11:00:0 0 AM EDT [facility] ([facility] Immunizations Vaccine Date Status Description Data Source(s) New in 2012. IIV4 05/03/2021 02:47:00 PM EDT completed [facility] ([facility] COVID-19 VACCINE Moderna 10/04/2020 12:00:00 AM EDT completed [facility] Vaccine Series Complete: YESThis Data wa s Submitted to [facility]. COVID-19 VACCINE, MRNA-[id number], LNP-S (MODERNA)/PF 10/04/2020 1 2:00:00 AM EDT completed [facility] COVID-19 VACCINE Moderna 08/31/2020 12:00:00 AM EST completed [facility] Vaccine Series Complete: NOThis Data was Submitted to [facility]. COVID-19 VACCINE, MRNA-[id number], LNP-S (MODERNA)/PF 08/31/2020 1 2:00:00 AM EST completed [facility] New in 2012. IIV4 04/06/2020 11:24:00 AM EDT completed [facility] ([facility] Medications Medication Brand Name Start Date Product Form Dose Route Admi nistrative Instructions Pharmacy Instructions Status Indications Reaction Description Data Source(s) 0.5 mg 05/08/2021 12:00:00 AM EDT tablet 60 TAKE ONE TABLET BY MOUTH TWICE A DAY MAXIMUM DAILY DOSE = 2 TABLETS TAKE ONE TABLET BY MOUTH TWICE A DAY MAX IMUM DAILY DOSE = 2 TABLETS SOLD: 05/09/2021 [facility] 0.5 mg 03/05/2021 12:00:00 AM EDT tablet 60 TAKE ONE TABLET BY MOUTH TWICE A DAY MAXIMUM DAILY DOSE = TWO TABLETS TAKE ONE TABLET BY MOUTH TWICE A DAY MAXIMUM DAILY DOSE = TWO TABLETS SOLD: 03/05/2021 [facility] 17 gram/dose 02/06/2021 12:00:00 AM EDT powder [address] OSCAR'S COLON PREP INSTRUCTIONS USE DIRECTED PER DR OSCAR'S COLON SD EP INSTRUCTIONS SOLD: 02/07/2021 [facility] Magnesium Hydroxide 80 MG/ML Oral Suspension Milk Of Magnesi a 02/05/2021 12:00:00 AM EDT ORAL active M EDENT ([facility], ) POLYETHYLENE GLYCOL 3350 142 MG/ML Oral Solution [Miralax] M iralax 02/05/2021 12:00:00 AM EDT active M [facility]ENT ([facility], ) 0.5 mg 01/02/2021 12:00:00 AM EDT tablet 60 TAKE ONE TABLET BY MOUTH TWICE A DAY MAXIMUM DAILY DOSE = 2 TABLETS TAKE ONE TABLET BY MOUTH TWICE A DAY MAX IMUM DAILY DOSE = 2 TABLETS SOLD: 01/03/2021 [facility] Omeprazole 20 MG Delayed Release Oral Capsule Omeprazole 01/01/2021 12:00:00 AM EDT active MED[facility] ([facility] quetiapine 50 MG Oral Tablet QUETIAPINE FUMARATE 12/26/2020 12:0 0:00 AM EDT tablet 30 TAKE ONE TABLET BY MOUTH AT BEDT BRENDA TAKE ONE TABLET BY MOUTH AT BEDTIME SOLD: 12/26/2020 [facility] 0.5 mg 10/31/2020 12:00:00 AM EDT tablet 60 TAKE ONE TABLET BY MOUTH TWICE A DAY MAXIMUM DAILY DOSE = 2 TAKE ONE TABLET BY MOUTH TWICE A DAY MAX IMUM DAILY DOSE = 2 SOLD: 11/01/2020 [facility] Moderna Covid-19 Vaccine Moderna Covid-19 Vaccine 10/19/2020 12:00: 00 AM EDT active [facility] ([facility] 1,250 mcg (50,000 unit) 09/18/2020 12:00:00 AM EST capsule 4 TAKE 1 CAPSULE BY MOUTH ONCE EVERY WEEK TAKE 1 CAPSULE BY MOUTH ONCE EVERY WEEK SOLD: 09/19/2020 [facility] 1,250 mcg (50,000 unit) 09/18/2020 12:00:00 AM EST capsule 4 TAKE 1 CAPSULE BY MOUTH ONCE EVERY WEEK TAKE 1 CAPSULE BY MOUTH ONCE EVERY WEEK SOLD: 11/06/2020 [facility] 1,250 mcg (50,000 unit) 09/18/2020 12:00:00 AM EST capsule 4 TAKE 1 CAPSULE BY MOUTH ONCE EVERY WEEK TAKE 1 CAPSULE BY MOUTH ONCE EVERY WEEK SOLD: 01/03/2021 [facility] 1,250 mcg (50,000 unit) 09/18/2020 12:00:00 AM EST capsule 4 TAKE 1 CAPSULE BY MOUTH ONCE EVERY WEEK TAKE 1 CAPSULE BY MOUTH ONCE EVERY WEEK SOLD: 10/11/2020 [facility] 1,250 mcg (50,000 unit) 09/18/2020 12:00:00 AM EST capsule 4 TAKE 1 CAPSULE BY MOUTH ONCE EVERY WEEK TAKE 1 CAPSULE BY MOUTH ONCE EVERY WEEK SOLD: 12/04/2020 [facility] 1,250 mcg (50,000 unit) 09/18/2020 12:00:00 AM EST capsule 4 TAKE 1 CAPSULE BY MOUTH ONCE EVERY WEEK TAKE 1 CAPSULE BY MOUTH ONCE EVERY WEEK SOLD: 01/29/2021 [facility] Prednisone 20 MG Oral Tablet Prednisone 09/04/2020 12:00:00 AM EST ORAL completed [facility] ([facility] 20 mg 09/04/2020 12:00:00 AM EST tablet 10 TAKE TWO TABLETS BY MOUTH EVERY DAY FOR 5 DAYS WITH FOOD TAKE TWO TABLETS BY MOUTH EVERY DAY FOR 5 DAYS WITH FOOD SOLD: 09/04/2020 [facility] 0.5 mg 08/25/2020 12:00:00 AM EST tablet 60 TAKE ONE TABLET BY MOUTH TWICE A DAY MAXIMUM DAILY DOSE = 2 TABLETS TAKE ONE TABLET BY MOUTH TWICE A DAY MAX IMUM DAILY DOSE = 2 TABLETS SOLD: 08/28/2020 [facility] Azithromycin 250 MG Oral Tablet [Zithromax] Zithromax 08/24/2020 12:00:00 AM EST ORAL completed [facility] ([facility] 250 mg 08/24/2020 12:00:00 AM EST tablet 6 TAKE TWO TABLETS BY MOUTH AT ONCE ON THE FIRST DAY THEN TAKE ONE DAILY THEREAFTER TAKE TWO TABLETS BY MOUTH AT ONCE ON THE FIRST DAY THEN TAKE ONE DAILY THEREAFTER SOLD: 08/24/2020 [facility] 875-125 mg 08/21/2020 12:00:00 AM EST tablet 20 TAKE ONE TABLET BY MOUTH TWICE A DAY FOR 10 DAYS WITH FOOD TAKE ONE TABLET BY MOUTH TWICE A DAY FOR 10 DAYS WITH FOOD SOLD: 08/21/2020 [facility] Amoxicillin 875 MG / Clavulanate 125 MG Oral Tablet Am oxicillin/Clavulanate Potassium 08/21/2020 12:00:00 AM EST ORAL completed [facility] ([facility] quetiapine 50 MG Oral Tablet QUETIAPINE FUMARATE 08/12/2020 12:0 0:00 AM EST tablet 30 TAKE ONE TABLET BY MOUTH AT BEDT BRENDA TAKE ONE TABLET BY MOUTH AT BEDTIME SOLD: 08/13/2020 [facility] quetiapine 50 MG Oral Tablet QUETIAPINE FUMARATE 08/12/2020 12:0 0:00 AM EST tablet 30 TAKE ONE TABLET BY MOUTH AT BEDT BRENDA TAKE ONE TABLET BY MOUTH AT BEDTIME SOLD: 11/22/2020 [facility] quetiapine 50 MG Oral Tablet Quetiapine Fumarate 08/12/2020 12:00:00 AM EST ORAL active [facility] ([facility] quetiapine 50 MG Oral Tablet QUETIAPINE FUMARATE 08/12/2020 12:0 0:00 AM EST tablet 30 TAKE ONE TABLET BY MOUTH AT BEDT BRENDA TAKE ONE TABLET BY MOUTH AT BEDTIME SOLD: 10/16/2020 [facility] 0.5 mg 06/29/2020 12:00:00 AM EST tablet 60 TAKE ONE TABLET BY MOUTH TWICE A DAY MAXIMUM DAILY DOSE = 2 TABLETS TAKE ONE TABLET BY MOUTH TWICE A DAY MAX IMUM DAILY DOSE = 2 TABLETS SOLD: 06/29/2020 [facility] 15 mg 06/26/2020 12:00:00 AM EST tablet 30 TAKE ONE TABLET BY MOUTH EVERY DAY TAKE ONE TABLET BY MOUTH EVERY DAY SOLD: 08/24/2020 [facility] 15 mg 06/26/2020 12:00:00 AM EST tablet 30 TAKE ONE TABLET BY MOUTH EVERY DAY TAKE ONE TABLET BY MOUTH EVERY DAY SOLD: 06/29/2020 [facility] 15 mg 06/26/2020 12:00:00 AM EST tablet 30 TAKE ONE TABLET BY MOUTH EVERY DAY TAKE ONE TABLET BY MOUTH EVERY DAY SOLD: 12/26/2020 [facility] 0.5 mg 04/25/2020 12:00:00 AM EDT tablet 60 TAKE ONE TABLET BY MOUTH TWICE A DAY MAXIMUM DAILY DOSE = 2 TABLETS TAKE ONE TABLET BY MOUTH TWICE A DAY MAX IMUM DAILY DOSE = 2 TABLETS SOLD: 04/27/2020 [facility] 1,250 mcg (50,000 unit) 03/29/2020 12:00:00 AM EDT capsule 4 TAKE 1 CAPSULE BY MOUTH ONCE EVERY WEEK TAKE 1 CAPSULE BY MOUTH ONCE EVERY WEEK SOLD: 05/25/2020 [facility] 1,250 mcg (50,000 unit) 03/29/2020 12:00:00 AM EDT capsule 4 TAKE 1 CAPSULE BY MOUTH ONCE EVERY WEEK TAKE 1 CAPSULE BY MOUTH ONCE EVERY WEEK SOLD: 07/18/2020 [facility] 1,250 mcg (50,000 unit) 03/29/2020 12:00:00 AM EDT capsule 4 TAKE 1 CAPSULE BY MOUTH ONCE EVERY WEEK TAKE 1 CAPSULE BY MOUTH ONCE EVERY WEEK SOLD: 04/24/2020 [facility] 1,250 mcg (50,000 unit) 03/29/2020 12:00:00 AM EDT capsule 4 TAKE 1 CAPSULE BY MOUTH ONCE EVERY WEEK TAKE 1 CAPSULE BY MOUTH ONCE EVERY WEEK SOLD: 03/30/2020 [facility] 1,250 mcg (50,000 unit) 03/29/2020 12:00:00 AM EDT capsule 4 TAKE 1 CAPSULE BY MOUTH ONCE EVERY WEEK TAKE 1 CAPSULE BY MOUTH ONCE EVERY WEEK SOLD: 08/13/2020 [facility] 1,250 mcg (50,000 unit) 03/29/2020 12:00:00 AM EDT capsule 4 TAKE 1 CAPSULE BY MOUTH ONCE EVERY WEEK TAKE 1 CAPSULE BY MOUTH ONCE EVERY WEEK SOLD: 06/21/2020 [facility] Ergocalciferol 72592 UNT Oral Capsule Vitamin D (Ergocalcife rol) 03/28/2020 12:00:00 AM EDT ORAL active M ELLY ([facility]) quetiapine 50 MG Oral Tablet QUETIAPINE FUMARATE 02/18/2020 12:0 0:00 AM EDT tablet 30 TAKE ONE TABLET BY MOUTH AT BEDT BRENDA MAXIMUM DAILY DOSE = 1 TAKE ONE TABLET BY MOUTH AT BEDTIME MAXIMUM DAILY DOSE = 1 SOLD: 06/18/2020 [facility] quetiapine 50 MG Oral Tablet QUETIAPINE FUMARATE 02/18/2020 12:0 0:00 AM EDT tablet 30 TAKE ONE TABLET BY MOUTH AT BEDT BRENDA MAXIMUM DAILY DOSE = 1 TAKE ONE TABLET BY MOUTH AT BEDTIME MAXIMUM DAILY DOSE = 1 SOLD: 03/20/2020 [facility] 15 mg 02/18/2020 12:00:00 AM EDT tablet 30 TAKE ONE TABLET BY MOUTH EVERY DAY TAKE ONE TABLET BY MOUTH EVERY DAY SOLD: 04/18/2020 [facility] quetiapine 50 MG Oral Tablet QUETIAPINE FUMARATE 02/18/2020 12:0 0:00 AM EDT tablet 30 TAKE ONE TABLET BY MOUTH AT BEDT BRENDA MAXIMUM DAILY DOSE = 1 TAKE ONE TABLET BY MOUTH AT BEDTIME MAXIMUM DAILY DOSE = 1 SOLD: 07/16/2020 [facility] quetiapine 50 MG Oral Tablet QUETIAPINE FUMARATE 02/18/2020 12:0 0:00 AM EDT tablet 30 TAKE ONE TABLET BY MOUTH AT BEDT BRENDA MAXIMUM DAILY DOSE = 1 TAKE ONE TABLET BY MOUTH AT BEDTIME MAXIMUM DAILY DOSE = 1 SOLD: 05/17/2020 [facility] quetiapine 50 MG Oral Tablet QUETIAPINE FUMARATE 02/18/2020 12:0 0:00 AM EDT tablet 30 TAKE ONE TABLET BY MOUTH AT BEDT BRENDA MAXIMUM DAILY DOSE = 1 TAKE ONE TABLET BY MOUTH AT BEDTIME MAXIMUM DAILY DOSE = 1 SOLD: 04/18/2020 [facility] 1 % 02/15/2020 12:00:00 AM EDT drops,suspension 10 INSTILL ONE DROP FOUR TIMES A DAY IN THE RIGHT EYE INSTILL ONE DROP FOUR TIMES A DAY IN THE RIGHT EYE SOLD: 04/13/2020 [facility] 1 % 02/15/2020 12:00:00 AM EDT drops,suspension 10 INSTILL ONE DROP FOUR TIMES A DAY IN THE RIGHT EYE INSTILL ONE DROP FOUR TIMES A DAY IN THE RIGHT EYE SOLD: 05/12/2020 [facility] Omeprazole 20 MG Delayed Release Oral Capsule Omeprazole 02/11/2020 12:00:00 AM EDT completed [facility] ([facility] 15 mg 12/14/2019 12:00:00 AM EDT tablet 30 TAKE ONE TABLET BY MOUTH EVERY DAY TAKE ONE TABLET BY MOUTH EVERY DAY SOLD: 10/28/2020 [facility] Insurance Providers Payer name Policy type / Coverage type Policy ID Covered democrat ID Covered democrat's relationship to cortez Policy [place] Plan Information [facility] [id number] SP [id number] [employer] [id number] SP [id number] [employer] [id number] SP [id number] [facility] [id number] SP [id number] [employer] [id number] SP [id number] [employer] [id number] SP [id number] [facility] Commercial [id number] Self [id number] [employer] Commercial [id number] Self [id number] [employer] HEA [id number] S [id number] [employer] PPO O [id number] S [id number] [employer] [id number] SP [id number] [employer] Commercial [id number] Self [id number] [employer] Commercial [id number] S elf [id number] [employer] Commercial [id number] Self [id number] [employer] [id number] SP [id number] [employer] Health Maintenance Organization (HMO) [id number] [employer] Commercial [id number] Self [employer] -O/P [id number] 18 [id number] MEDICARE [id number] SP [id number] [facility] [id number] SP [id number] ANSI-Commercial [id number] [employer] Commercial [id number] Self [id number] [employer] [place] Part B [id number] Self [id number] [employer] HEA [id number] S [id number] [employer] [place] [id number] 18 [id number] COMMERCIAL HEA [id number] S [id number] Problems, Conditions, and Diagnoses Code Display Name Description Problem Type Effective Dates Data Source(s) C44.311 [id number] Basal cell carcinoma of nasolabial crease Problem 09/06/2020 12:00:00 AM EST eCW1 ([facility]) Surgeries/Procedures Procedure Description Date Indications Data Source(s) OFFICE OUTPATIENT VISIT 25 MINUTES 05/03/2021 12:00:00 AM EDT [facility] ([facility] OFFICE OUTPATIENT VISIT 15 MINUTES 04/16/2021 12:00:00 AM EDT [facility] ([facility]) OFFICE OUTPATIENT NEW 30 MINUTES 02/05/2021 12:00:00 A M EDT MED[facility] ([facility], ) OFFICE OUTPATIENT VISIT 15 MINUTES 01/29/2021 12:00:00 AM EDT MED[facility] ([facility], ) OFFICE OUTPATIENT VISIT 25 MINUTES 01/25/2021 12:00:00 AM EDT MED[facility] ([facility] OFFICE OUTPATIENT VISIT 25 MINUTES 01/16/2021 12:00:00 AM EDT [facility] ([facility]) Injection, triamcinolone acetonide, not otherwise specified , 10 mg 11/22/2020 12:00:00 AM EDT eCW1 ([facility]) OFFICE OUTPATIENT VISIT 25 MINUTES 10/19/2020 12:00:00 AM EDT [facility] ([facility] DESTRUCTION PREMALIGNANT LESION 1ST 10/11/2020 12:00:0 0 AM EDT [facility] ([facility]) DESTRUCTION PREMALIGNANT LESION 2-14 EA 10/11/2020 12: 00:00 AM EDT [facility] ([facility]) Suture Removal 09/13/2020 12:00:00 AM EST eCW1 ([facility]) Med: Derm Lidocaine with Epinephrine Inj ection 1% with 2 ml sodium bicarbonate Intradermally to marked areas 09/06/2020 12:00:00 AM EST eCW1 ([facility]) Tympanometry & Acoustic Reflex Threshold Testing 09/04 12:00:00 AM EST [facility] ([facility] OFFICE OUTPATIENT VISIT 25 MINUTES 09/04/2020 12:00:00 AM EST [facility] ([facility] OFFICE OUTPATIENT VISIT 15 MINUTES 08/21/2020 12:00:00 AM EST [facility] ([facility] Results ID Date Data Source [id number] 04/25/2021 10:55:00 AM EDT [facility] ([facility] Name Value Range Interpretation Code Description Data Summer rce(s) Supporting Document(s) Color Urine Laboratory test result M EDENT ([facility] Appearance of Urine Laboratory test result [facility] ([facility] Specific [place] 1.020 1.00-1.03 [facility] ([facility] PH Urine 5.0 5.0-8.0 [facility] Glucose Urine Laboratory test result [facility] ([facility] Bilirubin.total [Presence] in Urine by Test strip Laboratory test res ult [facility] ([facility] Ketones Laboratory test result [facility] ([facility] Blood Urine Laboratory test result Above high normal [facility] ([facility] Urobilinogen 0.2 EU/dl 0.2-1.0 [facility] ([facility] Protein Urine Laboratory test result [facility] ([facility] Leukocytes Laboratory test result ME DENT ([facility] Nitrite Laboratory test result [facility] ([facility] ID Date Data Source [id number] 04/25/2021 09:33:00 AM EDT [facility] ([facility] Name Value Range Interpretation Code Description Data Summer rce(s) Supporting Document(s) Creatine kinase [Enzymatic activity/volume] in Serum or Plasma 56 U /L 26-192 [facility] ([facility] NORMAL RANGES Age WBC RBC HGB HCT [...] HCT IS 5% LESS SOURCE FOR DATA: [employer] 1800 OPERATION MANUAL( AUTOMATED BLOOD COUNTS AND [...] ADOLESCENTS REPRESENTS INDIVIDUALA AGED 2-19 YEARS EXCLUSIVE. ID Date Data Source [id number] 04/25/2021 09:33:00 AM EDT [facility] ([facility] Name Value Range Interpretation Code Description Data Summer rce(s) Supporting Document(s) Chol 156 mg/dL 0-200 [facility] ([facility] NORMAL RANGES Age WBC RBC HGB HCT [...] HCT IS 5% LESS SOURCE FOR DATA: [employer] 1800 OPERATION MANUAL( AUTOMATED BLOOD COUNTS AND [...] ADOLESCENTS REPRESENTS INDIVIDUALA AGED 2-19 YEARS EXCLUSIVE. Cholesterol in HDL [Mass/volume] in Serum or Plasma 69 mg/dL 45-65 Above high normal [facility] ([facility] ) NORMAL RANGES Age WBC RBC HGB HCT [...] HCT IS 5% LESS SOURCE FOR DATA: [employer] 1800 OPERATION MANUAL( AUTOMATED BLOOD COUNTS AND [...] DESIRABLE: <130 MG/DL <110 MG/DL BORDERLINE-HIGH RISK: 130- 159 MG/DL 110-129 MG/DL HIGH RISK: >160 MG/DL >130 MG/DL *CHILDREN AND ADOLESCENTS REPRESENTS INDIVIDUALA AGED 2-19 YEARS EXCLUSIVE. Trig 118 mg/dL 40-200 [facility] ([facility] NORMAL RANGES Age WBC RBC HGB HCT [...] HCT IS 5% LESS SOURCE FOR DATA: [employer] 1800 OPERATION MANUAL( AUTOMATED BLOOD COUNTS AND [...] DESIRABLE: <130 MG/DL <110 MG/DL BORDERLINE-HIGH RISK: 130- 159 MG/DL 110-129 MG/DL HIGH RISK: >160 MG/DL >130 MG/DL *CHILDREN AND ADOLESCENTS REPRESENTS INDIVIDUALA AGED 2-19 YEARS EXCLUSIVE. LDL_C 63 Calc 75-129 Below low normal [facility] ( [facility] NORMAL RANGES Age WBC RBC HGB HCT [...] HCT IS 5% LESS SOURCE FOR DATA: [employer] 1800 OPERATION MANUAL( AUTOMATED BLOOD COUNTS AND [...] DESIRABLE: <130 MG/DL <110 MG/DL BORDERLINE-HIGH RISK: 130- 159 MG/DL 110-129 MG/DL HIGH RISK: >160 MG/DL >130 MG/DL *CHILDREN AND ADOLESCENTS REPRESENTS INDIVIDUALA AGED 2-19 YEARS EXCLUSIVE. Cho/HDL Ratio 2.2 CALC [facility] ([facility] NORMAL RANGES Age WBC RBC HGB HCT [...] HCT IS 5% LESS SOURCE FOR DATA: [employer] 1800 OPERATION MANUAL( AUTOMATED BLOOD COUNTS AND [...] DESIRABLE: <130 MG/DL <110 MG/DL BORDERLINE-HIGH RISK: 130- 159 MG/DL 110-129 MG/DL HIGH RISK: >160 MG/DL >130 MG/DL *CHILDREN AND ADOLESCENTS REPRESENTS INDIVIDUALA AGED 2-19 YEARS EXCLUSIVE. ID Date Data Source [id number] 04/25/2021 09:33:00 AM EDT MED[facility] ([facility] Name Value Range Interpretation Code Description Data Summer rce(s) Supporting Document(s) Glu 93 mg/dL 70-110 [facility] ([facility] NORMAL RANGES Age WBC RBC HGB HCT [...] HCT IS 5% LESS SOURCE FOR DATA: [employer] DYN 1800 OPERATION MANUAL( AUTOMATED BLOOD COUNTS [...] DESIRABLE: <130 MG/DL <110 MG/DL BORDERLINE-HIGH RISK: 130- 159 MG/DL 110-129 MG/DL HIGH RISK: >160 MG/DL >130 MG/DL *CHILDREN AND ADOLESCENTS REPRESENTS INDIVIDUALA AGED 2-19 YEARS EXCLUSIVE. BUN 18 mg/dL 8-23 [facility] ([facility] NORMAL RANGES Age WBC RBC HGB HCT [...] HCT IS 5% LESS SOURCE FOR DATA: [employer] 1800 OPERATION MANUAL( AUTOMATED BLOOD COUNTS AND [...] DESIRABLE: <130 MG/DL <110 MG/DL BORDERLINE-HIGH RISK: 130- 159 MG/DL 110-129 MG/DL HIGH RISK: >160 MG/DL >130 MG/DL *CHILDREN AND ADOLESCENTS REPRESENTS INDIVIDUALA AGED 2-19 YEARS EXCLUSIVE. Creat 0.6 mg/dL 0.5-1.0 [facility] NORMAL RANGES Age WBC RBC HGB HCT [...] HCT IS 5% LESS SOURCE FOR DATA: [employer] 1800 OPERATION MANUAL( AUTOMATED BLOOD COUNTS AND [...] DESIRABLE: <130 MG/DL <110 MG/DL BORDERLINE-HIGH RISK: 130- 159 MG/DL 110-129 MG/DL HIGH RISK: >160 MG/DL >130 MG/DL *CHILDREN AND ADOLESCENTS REPRESENTS INDIVIDUALA AGED 2-19 YEARS EXCLUSIVE. BUN/Creatinine Ratio 30.9 CALC MEDENT ([facility] NORMAL RANGES Age WBC RBC HGB HCT [...] HCT IS 5% LESS SOURCE FOR DATA: [employer] 1800 OPERATION MANUAL( AUTOMATED BLOOD COUNTS AND [...] DESIRABLE: <130 MG/DL <110 MG/DL BORDERLINE-HIGH RISK: 130- 159 MG/DL 110-129 MG/DL HIGH RISK: >160 MG/DL >130 MG/DL *CHILDREN AND ADOLESCENTS REPRESENTS INDIVIDUALA AGED 2-19 YEARS EXCLUSIVE. Na 136 mmol/L 136-145 [facility] ([facility] NORMAL RANGES Age WBC RBC HGB HCT [...] HCT IS 5% LESS SOURCE FOR DATA: [employer] 1800 OPERATION MANUAL( AUTOMATED BLOOD COUNTS AND [...] DESIRABLE: <130 MG/DL <110 MG/DL BORDERLINE-HIGH RISK: 130- 159 MG/DL 110-129 MG/DL HIGH RISK: >160 MG/DL >130 MG/DL *CHILDREN AND ADOLESCENTS REPRESENTS INDIVIDUALA AGED 2-19 YEARS EXCLUSIVE. K 4.5 mmol/L 3.5-5.1 [facility] ([facility] NORMAL RANGES Age WBC RBC HGB HCT [...] HCT IS 5% LESS SOURCE FOR DATA: [employer] 1800 OPERATION MANUAL( AUTOMATED BLOOD COUNTS AND [...] DESIRABLE: <130 MG/DL <110 MG/DL BORDERLINE-HIGH RISK: 130- 159 MG/DL 110-129 MG/DL HIGH RISK: >160 MG/DL >130 MG/DL *CHILDREN AND ADOLESCENTS REPRESENTS INDIVIDUALA AGED 2-19 YEARS EXCLUSIVE. CL 101.5 mmol/L 98.0-107.0 [facility] ([facility] NORMAL RANGES Age WBC RBC HGB HCT [...] HCT IS 5% LESS SOURCE FOR DATA: [employer] 1800 OPERATION MANUAL( AUTOMATED BLOOD COUNTS AND [...] DESIRABLE: <130 MG/DL <110 MG/DL BORDERLINE-HIGH RISK: 130- 159 MG/DL 110-129 MG/DL HIGH RISK: >160 MG/DL >130 MG/DL *CHILDREN AND ADOLESCENTS REPRESENTS INDIVIDUALA AGED 2-19 YEARS EXCLUSIVE. Co2 23.5 mmol/L 22.0-29.0 [facility] ([facility] NORMAL RANGES Age WBC RBC HGB HCT [...] HCT IS 5% LESS SOURCE FOR DATA: [employer] 1800 OPERATION MANUAL( AUTOMATED BLOOD COUNTS AND [...] DESIRABLE: <130 MG/DL <110 MG/DL BORDERLINE-HIGH RISK: 130- 159 MG/DL 110-129 MG/DL HIGH RISK: >160 MG/DL >130 MG/DL *CHILDREN AND ADOLESCENTS REPRESENTS INDIVIDUALA AGED 2-19 YEARS EXCLUSIVE. CA 9.5 mg/dL 8.6-10.2 [facility] ([facility] NORMAL RANGES Age WBC RBC HGB HCT [...] HCT IS 5% LESS SOURCE FOR DATA: [employer] 1800 OPERATION MANUAL( AUTOMATED BLOOD COUNTS AND [...] DESIRABLE: <130 MG/DL <110 MG/DL BORDERLINE-HIGH RISK: 130- 159 MG/DL 110-129 MG/DL HIGH RISK: >160 MG/DL >130 MG/DL *CHILDREN AND ADOLESCENTS REPRESENTS INDIVIDUALA AGED 2-19 YEARS EXCLUSIVE. TP 6.7 g/dL 6.6-8.7 [facility] ([facility] NORMAL RANGES Age WBC RBC HGB HCT [...] HCT IS 5% LESS SOURCE FOR DATA: [employer] 1800 OPERATION MANUAL( AUTOMATED BLOOD COUNTS AND [...] DESIRABLE: <130 MG/DL <110 MG/DL BORDERLINE-HIGH RISK: 130- 159 MG/DL 110-129 MG/DL HIGH RISK: >160 MG/DL >130 MG/DL *CHILDREN AND ADOLESCENTS REPRESENTS INDIVIDUALA AGED 2-19 YEARS EXCLUSIVE. Alb 4.5 g/dL 3.4-4.8 [facility] ([facility] NORMAL RANGES Age WBC RBC HGB HCT [...] HCT IS 5% LESS SOURCE FOR DATA: [employer] 1800 OPERATION MANUAL( AUTOMATED BLOOD COUNTS AND [...] DESIRABLE: <130 MG/DL <110 MG/DL BORDERLINE-HIGH RISK: 130- 159 MG/DL 110-129 MG/DL HIGH RISK: >160 MG/DL >130 MG/DL *CHILDREN AND ADOLESCENTS REPRESENTS INDIVIDUALA AGED 2-19 YEARS EXCLUSIVE. A/G Ratio 2.1 CALC [facility] ([facility] NORMAL RANGES Age WBC RBC HGB HCT [...] HCT IS 5% LESS SOURCE FOR DATA: [employer] 1800 OPERATION MANUAL( AUTOMATED BLOOD COUNTS AND [...] DESIRABLE: <130 MG/DL <110 MG/DL BORDERLINE-HIGH RISK: 130- 159 MG/DL 110-129 MG/DL HIGH RISK: >160 MG/DL >130 MG/DL *CHILDREN AND ADOLESCENTS REPRESENTS INDIVIDUALA AGED 2-19 YEARS EXCLUSIVE. Globulin 2.2 CALC [facility] ([facility] NORMAL RANGES Age WBC RBC HGB HCT [...] HCT IS 5% LESS SOURCE FOR DATA: [employer] 1800 OPERATION MANUAL( AUTOMATED BLOOD COUNTS AND [...] DESIRABLE: <130 MG/DL <110 MG/DL BORDERLINE-HIGH RISK: 130- 159 MG/DL 110-129 MG/DL HIGH RISK: >160 MG/DL >130 MG/DL *CHILDREN AND ADOLESCENTS REPRESENTS INDIVIDUALA AGED 2-19 YEARS EXCLUSIVE. Alp 95.3 U/L 35-129 [facility] ([facility] NORMAL RANGES Age WBC RBC HGB HCT [...] HCT IS 5% LESS SOURCE FOR DATA: [employer] 1800 OPERATION MANUAL( AUTOMATED BLOOD COUNTS AND [...] DESIRABLE: <130 MG/DL <110 MG/DL BORDERLINE-HIGH RISK: 130- 159 MG/DL 110-129 MG/DL HIGH RISK: >160 MG/DL >130 MG/DL *CHILDREN AND ADOLESCENTS REPRESENTS INDIVIDUALA AGED 2-19 YEARS EXCLUSIVE. Alt (SGPT) 37 U/L 0-41 [facility] ([facility] NORMAL RANGES Age WBC RBC HGB HCT [...] DESIRABLE: <130 MG/DL <110 MG/DL BORDERLINE-HIGH RISK: 130- 159 MG/DL 110-129 MG/DL HIGH RISK: >160 MG/DL >130 MG/DL *CHILDREN AND ADOLESCENTS REPRESENTS INDIVIDUALA AGED 2-19 YEARS EXCLUSIVE. Tbili 0.94 mg/dL 0.0-1.2 [facility] ([facility] NORMAL RANGES Age WBC RBC HGB HCT [...] HCT IS 5% LESS SOURCE FOR DATA: [employer] 1800 OPERATION MANUAL( AUTOMATED BLOOD COUNTS AND [...] DESIRABLE: <130 MG/DL <110 MG/DL BORDERLINE-HIGH RISK: 130- 159 MG/DL 110-129 MG/DL HIGH RISK: >160 MG/DL >130 MG/DL *CHILDREN AND ADOLESCENTS REPRESENTS INDIVIDUALA AGED 2-19 YEARS EXCLUSIVE. Osmolality-Calculated 273.2 [facility] ([facility] NORMAL RANGES Age WBC RBC HGB HCT [...] HCT IS 5% LESS SOURCE FOR DATA: [employer] 1800 OPERATION MANUAL( AUTOMATED BLOOD COUNTS AND [...] DESIRABLE: <130 MG/DL <110 MG/DL BORDERLINE-HIGH RISK: 130- 159 MG/DL 110-129 MG/DL HIGH RISK: >160 MG/DL >130 MG/DL *CHILDREN AND ADOLESCENTS REPRESENTS INDIVIDUALA AGED 2-19 YEARS EXCLUSIVE. Ast (Sgot) 36 U/L 0-40 [facility] NORMAL RANGES Age WBC RBC HGB HCT [...] DESIRABLE: <130 MG/DL <110 MG/DL BORDERLINE-HIGH RISK: 130- 159 MG/DL 110-129 MG/DL HIGH RISK: >160 MG/DL >130 MG/DL *CHILDREN AND ADOLESCENTS REPRESENTS INDIVIDUALA AGED 2-19 YEARS EXCLUSIVE. eGFR 110 # [facility] ( [facility] NORMAL RANGES Age WBC RBC HGB HCT [...] HCT IS 5% LESS SOURCE FOR DATA: [employer] 1800 OPERATION MANUAL( AUTOMATED BLOOD COUNTS AND [...] DESIRABLE: <130 MG/DL <110 MG/DL BORDERLINE-HIGH RISK: 130- 159 MG/DL 110-129 MG/DL HIGH RISK: >160 MG/DL >130 MG/DL *CHILDREN AND ADOLESCENTS REPRESENTS INDIVIDUALA AGED 2-19 YEARS EXCLUSIVE. Anion Gap 15 mmol/L [facility] ([facility] NORMAL RANGES Age WBC RBC HGB HCT [...] HCT IS 5% LESS SOURCE FOR DATA: [employer] 1800 OPERATION MANUAL( AUTOMATED BLOOD COUNTS AND [...] DESIRABLE: <130 MG/DL <110 MG/DL BORDERLINE-HIGH RISK: 130- 159 MG/DL 110-129 MG/DL HIGH RISK: >160 MG/DL >130 MG/DL *CHILDREN AND ADOLESCENTS REPRESENTS INDIVIDUALA AGED 2-19 YEARS EXCLUSIVE. eGFR Non-Afr. [place] 95 # [facility] ([facility] [facility] NORMAL RANGES Age WBC RBC HGB HCT [...] HCT IS 5% LESS SOURCE FOR DATA: [employer] 1800 OPERATION MANUAL( AUTOMATED BLOOD COUNTS AND [...] DESIRABLE: <130 MG/DL <110 MG/DL BORDERLINE-HIGH RISK: 130- 159 MG/DL 110-129 MG/DL HIGH RISK: >160 MG/DL >130 MG/DL *CHILDREN AND ADOLESCENTS REPRESENTS INDIVIDUALA AGED 2-19 YEARS EXCLUSIVE. ID Date Data Source [id number] 04/25/2021 09:33:00 AM EDT PHILIPP ([facility] Name Value Range Interpretation Code Description Data Summer rce(s) Supporting Document(s) WBC 4.3 10E3/uL 4.1-10.9 MED[facility] ([facility] NORMAL RANGES Age WBC RBC HGB HCT [...] HCT IS 5% LESS SOURCE FOR DATA: [employer]at DYN 1800 OPERATION MANUAL( AUTOMATED BLOOD COUNTS [...] DESIRABLE: <130 MG/DL <110 MG/DL BORDERLINE-HIGH RISK: 130- 159 MG/DL 110-129 MG/DL HIGH RISK: >160 MG/DL >130 MG/DL *CHILDREN AND ADOLESCENTS REPRESENTS INDIVIDUALA AGED 2-19 YEARS EXCLUSIVE. HGB 12.7 g/dL 12.0-18.0 PH[facility]IPP ([facility] NORMAL RANGES Age WBC RBC HGB HCT [...] HCT IS 5% LESS SOURCE FOR DATA: [employer] 1800 OPERATION MANUAL( AUTOMATED BLOOD COUNTS AND [...] DESIRABLE: <130 MG/DL <110 MG/DL BORDERLINE-HIGH RISK: 130- 159 MG/DL 110-129 MG/DL HIGH RISK: >160 MG/DL >130 MG/DL *CHILDREN AND ADOLESCENTS REPRESENTS INDIVIDUALA AGED 2-19 YEARS EXCLUSIVE. RBC 3.96 10E6/uL 4.20-6.30 Below low normal [facility] ([facility] NORMAL RANGES Age WBC RBC HGB HCT [...] HCT IS 5% LESS SOURCE FOR DATA: [employer] DYN 1800 OPERATION MANUAL( AUTOMATED BLOOD COUNTS [...] DESIRABLE: <130 MG/DL <110 MG/DL BORDERLINE-HIGH RISK: 130- 159 MG/DL 110-129 MG/DL HIGH RISK: >160 MG/DL >130 MG/DL *CHILDREN AND ADOLESCENTS REPRESENTS INDIVIDUALA AGED 2-19 YEARS EXCLUSIVE. HCT 38.6 % 37.0-51.0 [facility] ([facility] NORMAL RANGES Age WBC RBC HGB HCT [...] HCT IS 5% LESS SOURCE FOR DATA: [employer] 1800 OPERATION MANUAL( AUTOMATED BLOOD COUNTS AND [...] DESIRABLE: <130 MG/DL <110 MG/DL BORDERLINE-HIGH RISK: 130- 159 MG/DL 110-129 MG/DL HIGH RISK: >160 MG/DL >130 MG/DL *CHILDREN AND ADOLESCENTS REPRESENTS INDIVIDUALA AGED 2-19 YEARS EXCLUSIVE. MCH 32.1 pg 26.0-32.0 Above high normal [facility] ([facility] NORMAL RANGES Age WBC RBC HGB HCT [...] HCT IS 5% LESS SOURCE FOR DATA: [employer]ivity 1800 OPERATION MANUAL( AUTOMATED BLOOD COUNTS AND [...] DESIRABLE: <130 MG/DL <110 MG/DL BORDERLINE-HIGH RISK: 130- 159 MG/DL 110-129 MG/DL HIGH RISK: >160 MG/DL >130 MG/DL *CHILDREN AND ADOLESCENTS REPRESENTS INDIVIDUALA AGED 2-19 YEARS EXCLUSIVE. MCV 97.5 fL 80.0-97.0 Above high normal [facility] ([facility] NORMAL RANGES Age WBC RBC HGB HCT [...] HCT IS 5% LESS SOURCE FOR DATA: [employer]ivity 1800 OPERATION MANUAL( AUTOMATED BLOOD COUNTS AND [...] DESIRABLE: <130 MG/DL <110 MG/DL BORDERLINE-HIGH RISK: 130- 159 MG/DL 110-129 MG/DL HIGH RISK: >160 MG/DL >130 MG/DL *CHILDREN AND ADOLESCENTS REPRESENTS INDIVIDUALA AGED 2-19 YEARS EXCLUSIVE. PLT 196 10E3/uL 140-440 MEDENT ([facility] NORMAL RANGES Age WBC RBC HGB HCT [...] HCT IS 5% LESS SOURCE FOR DATA: [employer] 1800 OPERATION MANUAL( AUTOMATED BLOOD COUNTS AND [...] DESIRABLE: <130 MG/DL <110 MG/DL BORDERLINE-HIGH RISK: 130- 159 MG/DL 110-129 MG/DL HIGH RISK: >160 MG/DL >130 MG/DL *CHILDREN AND ADOLESCENTS REPRESENTS INDIVIDUALA AGED 2-19 YEARS EXCLUSIVE. MCHC 32.9 g/dL 31.0-36.0 [facility] ([facility] Pract [facility] NORMAL RANGES Age WBC RBC HGB HCT [...] HCT IS 5% LESS SOURCE FOR DATA: [employer]ivity 1800 OPERATION MANUAL( AUTOMATED BLOOD COUNTS AND [...] DESIRABLE: <130 MG/DL <110 MG/DL BORDERLINE-HIGH RISK: 130- 159 MG/DL 110-129 MG/DL HIGH RISK: >160 MG/DL >130 MG/DL *CHILDREN AND ADOLESCENTS REPRESENTS INDIVIDUALA AGED 2-19 YEARS EXCLUSIVE. RDW-CV 12.8 % 11.5-14.5 [facility] ([facility] NORMAL RANGES Age WBC RBC HGB HCT [...] HCT IS 5% LESS SOURCE FOR DATA: [employer]ivity 1800 OPERATION MANUAL( AUTOMATED BLOOD COUNTS AND [...] DESIRABLE: <130 MG/DL <110 MG/DL BORDERLINE-HIGH RISK: 130- 159 MG/DL 110-129 MG/DL HIGH RISK: >160 MG/DL >130 MG/DL *CHILDREN AND ADOLESCENTS REPRESENTS INDIVIDUALA AGED 2-19 YEARS EXCLUSIVE. Lym% 30.0 % 10.0-58.5 [facility] ([facility] NORMAL RANGES Age WBC RBC HGB HCT [...] HCT IS 5% LESS SOURCE FOR DATA: [employer]ivity 1800 OPERATION MANUAL( AUTOMATED BLOOD COUNTS AND [...] DESIRABLE: <130 MG/DL <110 MG/DL BORDERLINE-HIGH RISK: 130- 159 MG/DL 110-129 MG/DL HIGH RISK: >160 MG/DL >130 MG/DL *CHILDREN AND ADOLESCENTS REPRESENTS INDIVIDUALA AGED 2-19 YEARS EXCLUSIVE. MXD% 13.2 % 0.1-24.0 [facility] ([facility] NORMAL RANGES Age WBC RBC HGB HCT [...] DESIRABLE: <130 MG/DL <110 MG/DL BORDERLINE-HIGH RISK: 130- 159 MG/DL 110-129 MG/DL HIGH RISK: >160 MG/DL >130 MG/DL *CHILDREN AND ADOLESCENTS REPRESENTS INDIVIDUALA AGED 2-19 YEARS EXCLUSIVE. Neut% 56.8 % 37.0-92.0 [facility] ([facility] NORMAL RANGES Age WBC RBC HGB HCT [...] HCT IS 5% LESS SOURCE FOR DATA: [employer]ivity 1800 OPERATION MANUAL( AUTOMATED BLOOD COUNTS AND [...] DESIRABLE: <130 MG/DL <110 MG/DL BORDERLINE-HIGH RISK: 130- 159 MG/DL 110-129 MG/DL HIGH RISK: >160 MG/DL >130 MG/DL *CHILDREN AND ADOLESCENTS REPRESENTS INDIVIDUALA AGED 2-19 YEARS EXCLUSIVE. Lym# 1.3 10E3/uL 0.6-4.1 [facility] ([facility] NORMAL RANGES Age WBC RBC HGB HCT [...] HCT IS 5% LESS SOURCE FOR DATA: [employer]ivity 1800 OPERATION MANUAL( AUTOMATED BLOOD COUNTS AND [...] DESIRABLE: <130 MG/DL <110 MG/DL BORDERLINE-HIGH RISK: 130- 159 MG/DL 110-129 MG/DL HIGH RISK: >160 MG/DL >130 MG/DL *CHILDREN AND ADOLESCENTS REPRESENTS INDIVIDUALA AGED 2-19 YEARS EXCLUSIVE. Neut# 2.4 % 2.0-7.8 [facility] ([facility] NORMAL RANGES Age WBC RBC HGB HCT [...] DESIRABLE: <130 MG/DL <110 MG/DL BORDERLINE-HIGH RISK: 130- 159 MG/DL 110-129 MG/DL HIGH RISK: >160 MG/DL >130 MG/DL *CHILDREN AND ADOLESCENTS REPRESENTS INDIVIDUALA AGED 2-19 YEARS EXCLUSIVE. MPV 9.7 fL 9.0-13.0 [facility] ([facility] NORMAL RANGES Age WBC RBC HGB HCT [...] HCT IS 5% LESS SOURCE FOR DATA: [employer]ivity 1800 OPERATION MANUAL( AUTOMATED BLOOD COUNTS AND [...] DESIRABLE: <130 MG/DL <110 MG/DL BORDERLINE-HIGH RISK: 130- 159 MG/DL 110-129 MG/DL HIGH RISK: >160 MG/DL >130 MG/DL *CHILDREN AND ADOLESCENTS REPRESENTS INDIVIDUALA AGED 2-19 YEARS EXCLUSIVE. MXD# 0.6 10E3/uL 0.0-1.8 PHILIPP ([facility] NORMAL RANGES Age WBC RBC HGB HCT [...] HCT IS 5% LESS SOURCE FOR DATA: [employer]at DYN 1800 OPERATION MANUAL( AUTOMATED BLOOD COUNTS [...] DESIRABLE: <130 MG/DL <110 MG/DL BORDERLINE-HIGH RISK: 130- 159 MG/DL 110-129 MG/DL HIGH RISK: >160 MG/DL >130 MG/DL *CHILDREN AND ADOLESCENTS REPRESENTS INDIVIDUALA AGED 2-19 YEARS EXCLUSIVE. ID Date Data Source [id number] 04/11/2021 10:19:00 AM EDT MEDENT ([facility] Name Value Range Interpretation Code Description Data Summer rce(s) Supporting Document(s) Cobalamin (Vitamin B12) [Mass/volume] in Serum or Plasma 1779 pg /mL 247-911 Above high normal [facility] ([facility] ) VITAMIN B12 NORMAL RANGE NORMAL 247 - 911 PG/ML INDETERMINATE 211 - 246 PG/ML DEFICIENT LESS THAN 211 PG/ML Calcidiol [Mass/volume] in Serum or Plasma 33.3 ng/mL 30.0- 100.0 Normal (applies to non-numeric results) [facility] ([facility] Vitamin B1 Level Whole Blood 122.7 nmol/L 66.5-200.0 Nor mal (applies to non- numeric results) [facility] ([facility] ) This test was developed and its performa nce characteristics determined by [facility]. It has not been cleared or approved by the Food and Drug Administration. Performed at: [address] [id number] Electrical Helper: Alvaro Marte MD, Phone: [phone] ID Date Data Source [id number] 04/11/2021 10:19:00 AM EDT [facility] ([facility] Name Value Range Interpretation Code Description Data Summer rce(s) Supporting Document(s) Iron (Fe) 117 ug/dL 50-170 Normal (applies to non-numeric resul ts) [facility] ([facility] Total Iron Binding Capacity 457 ug/dL 250-450 Above high normal [facility] ([facility] Percent Saturation 25.6 % 13.2-45.0 Normal (applies to non-numer ic results) [facility] ([facility] ID Date Data Source [id number] 04/11/2021 10:19:00 AM EDT MED[facility] ([facility] Name Value Range Interpretation Code Description Data Summer rce(s) Supporting Document(s) Blood Urea Nitrogen 12 mg/dL 7-18 Normal (applies to non-nume [place] results) [facility] ([facility] Glucose, Fasting 116 mg/dL 70-100 Above high normal M EDENT ([facility] Creatinine For GFR 0.68 mg/dL 0.55-1.30 Normal (applies to non -numeric results) [facility] ([facility] Glomerular Filtration Rate Laboratory test result Normal (applies to non- numeric results) [facility] ([facility] ) <content>Units are mL/min/1.73 m2</content>
<content></content>
<content>Chronic Kidney Disease Staging per NKF:</content>
<content></content>
<content>Stage I & II GFR >=60 Normal to Mildly Decreased</content>
<content>Stage III GFR 30- 59 Moderately Decreased</content>
<content>Stage IV GFR 15-29 Severely Decreased</content>
<content>Stage V GFR <15 Very Little GFR Left</content>
<content>ESRD GFR <15 on MENDER HAND</content>
<content></content> Potassium Serum 4.4 meq/L 3.5-5.1 Normal (applies to non-numeric results) [facility] ([facility] Sodium Level 139 meq/L 136-145 Normal (applies to non-numeric res ults) [facility] ([facility] Carbon Dioxide Level 30 meq/L 21-32 Normal (applies to non-num kirk results) [facility] ([facility] Chloride Level 108 meq/L 98-107 Above high normal MED E[facility] ([facility] Calcium Level 9.3 mg/dL 8.8-10.2 Normal (applies to non-numeric re sults) [facility] ([facility] Anion Gap 1 meq/L 8-16 Below low normal [facility] ( [facility] Ast/Sgot 33 U/L 7-37 Normal (applies to non-numeric resul ts) [facility] ([facility] Alt/SGPT 45 U/L 12-78 Normal (applies to non-numeric resul ts) [facility] ([facility] Bilirubin,Total 0.9 mg/dL 0.2-1.0 Normal (applies to non-numeric results) [facility] ([facility] Alkaline Phosphatase 97 U/L 45-117 Normal (applies to non-num kirk results) [facility] ([facility] Total Protein 7.1 GM/DL 6.4-8.2 Normal (applies to non-numeric re sults) [facility] ([facility] Albumin 3.7 GM/DL 3.2-5.2 Normal (applies to non-numeric resul ts) [facility] ([facility] Albumin/Globulin Ratio 1.1 1.2-2.2 Below low normal [facility] ([facility] ID Date Data Source [id number] 04/11/2021 10:19:00 AM EDT MED[facility] ([facility] Name Value Range Interpretation Code Description Data Summer rce(s) Supporting Document(s) Red Blood Count 3.92 10 4.00-5.40 Below low normal MED E[facility] ([facility] White Blood Count 4.9 10 4.0-10.0 Normal (applies to non-numeri c results) [facility] ([facility] Hemoglobin 12.7 g/dL 12.0-15.5 Normal (applies to non-numeric resul ts) [facility] ([facility] Hematocrit 39.5 % 36.0-47.0 Normal (applies to non-numeric resul ts) [facility] ([facility] Mean Corpuscular Hemoglobin 32.4 pg 27.0-33.0 Norm al (applies to non-numeric results) [facility] ([facility] ) Mean Corpuscular Volume 100.8 fl 80.0-96.0 Above high normal [facility] ([facility] Platelet Count, Automated 215 10 150-450 Normal (applies to non-numeric results) [facility] ([facility] ) Red Cell Distribution Width 12.8 % 11.5-14.5 Norm al (applies to non-numeric results) [facility] ([facility] ) Mean Corpuscular HGB Conc 32.2 g/dL 32.0-36.5 Normal (applies to non-numeric results) [facility] ([facility] ) Lymph % 28.4 % 24.0-44.0 Normal (applies to non-numeric resul ts) [facility] ([facility] Neutrophils % 55.3 % 36.0-66.0 Normal (applies to non-numeric re sults) [facility] ([facility] Eos % 4.5 % 0.0-3.0 Above high normal [facility] ([facility] Brown % 11.2 % 2.0-8.0 Above high normal [facility] ([facility] Immature Granulocyte % 0.2 % 0-3.0 Normal (applies to non-n umeric results) [facility] ([facility] Baso % 0.4 % 0.0-1.0 Normal (applies to non-numeric resul ts) [facility] ([facility] Nucleated Red Blood Cell % 0.0 % 0-0 Normal (applies to n on-numeric results) [facility] ([facility] Neutrophils # 2.7 10 1.5-8.5 Normal (applies to non-numeric re sults) [facility] ([facility] Lymph # 1.4 10 1.5-5.0 Below low normal [facility] ( [facility] Brown # 0.6 10 0.0-0.8 Normal (applies to non-numeric resul ts) [facility] ([facility] Baso # 0.0 10 0.0-0.2 Normal (applies to non-numeric resul ts) [facility] ([facility] Eos # 0.2 10 0.0-0.5 Normal (applies to non-numeric resul ts) [facility] ([facility] ID Date Data Source [id number] 04/11/2021 10:19:00 AM EDT [facility] ([facility]) Name Value Range Interpretation Code Description Data Summer rce(s) Supporting Document(s) Cobalamin (Vitamin B12) [Mass/volume] in Serum or Plasma 1779 pg /mL 247-911 Above high normal [facility] ([facility]) VITAMIN B12 NORMAL RANGE NORMAL 247 - 911 PG/ML INDETERMINATE 211 - 246 PG/ML DEFICIENT LESS THAN 211 PG/ML Calcidiol [Mass/volume] in Serum or Plasma 33.3 ng/mL 30.0- 100.0 Normal (applies to non-numeric results) [facility] ([facility]) Thiamine [Mass/volume] in Blood 122.7 nmol/L 66.5-200.0 Normal (applies to non- numeric results) [facility] ([facility]) This test was developed and its performa nce characteristics determined by [facility]. It has not been cleared or approved by the Food and Drug Administration. Performed at: [address] [id number] Electrical Helper: Alvaro Marte MD, Phone: [phone] ID Date Data Source [id number] 04/11/2021 10:19:00 AM EDT [facility] ([facility]) Name Value Range Interpretation Code Description Data Summer rce(s) Supporting Document(s) Iron (Fe) 117 ug/dL 50-170 Normal (applies to non-numeric resul ts) [facility] ([facility]) Total Iron Binding Capacity 457 ug/dL 250-450 Above high normal [facility] ([facility]) Percent Saturation 25.6 % 13.2-45.0 Normal (applies to non-numer ic results) [facility]) ID Date Data Source [id number] 04/11/2021 10:19:00 AM EDT [facility]) Name Value Range Interpretation Code Description Data Summer rce(s) Supporting Document(s) Glucose, Fasting 116 mg/dL 70-100 Above high normal [facility] ([facility]) Blood Urea Nitrogen 12 mg/dL 7-18 Normal (applies to non-nume [place] results) [facility]) Creatinine For GFR 0.68 mg/dL 0.55-1.30 Normal (applies to non -numeric results) [facility]) Sodium Level 139 meq/L 136-145 Normal (applies to non-numeric res ults) [facility]) Glomerular Filtration Rate Laboratory test result Normal (applies to non- numeric results) [facility]) <content>Units are mL/min/1.73 m2</content>
<content></content>
<content>Chronic Kidney Disease Staging per NKF:</content>
<content></content>
<content>Stage I & II GFR >=60 Normal to Mildly Decreased</content>
<content>Stage III GFR 30- 59 Moderately Decreased</content>
<content>Stage IV GFR 15-29 Severely Decreased</content>
<content>Stage V GFR <15 Very Little GFR Left</content>
<content>ESRD GFR <15 on MENDER HAND</content>
<content></content> Potassium Serum 4.4 meq/L 3.5-5.1 Normal (applies to non-numeric results) [facility]) Chloride Level 108 meq/L 98-107 Above high normal [facility] ([facility]) Carbon Dioxide Level 30 meq/L 21-32 Normal (applies to non-num kirk results) [facility]) Anion Gap 1 meq/L 8-16 Below low normal [facility] ([facility]) Calcium Level 9.3 mg/dL 8.8-10.2 Normal (applies to non-numeric re sults) [facility] ([facility]) Ast/Sgot 33 U/L 7-37 Normal (applies to non-numeric resul ts) [facility] ([facility]) Alt/SGPT 45 U/L 12-78 Normal (applies to non-numeric resul ts) [facility] ([facility]) Bilirubin,Total 0.9 mg/dL 0.2-1.0 Normal (applies to non-numeric results) [facility] ([facility]) Alkaline Phosphatase 97 U/L 45-117 Normal (applies to non-num kirk results) [facility] ([facility]) Albumin 3.7 GM/DL 3.2-5.2 Normal (applies to non-numeric resul ts) [facility] ([facility]) Total Protein 7.1 GM/DL 6.4-8.2 Normal (applies to non-numeric re sults) [facility] ([facility]) Albumin/Globulin Ratio 1.1 1.2-2.2 Below low normal [facility] ([facility]) ID Date Data Source [id number] 04/11/2021 10:19:00 AM EDT [facility] ([facility]) Name Value Range Interpretation Code Description Data Summer rce(s) Supporting Document(s) White Blood Count 4.9 10 4.0-10.0 Normal (applies to non-numeri c results) [facility] ([facility]) Red Blood Count 3.92 10 4.00-5.40 Below low normal [facility] ([facility]) Hemoglobin 12.7 g/dL 12.0-15.5 Normal (applies to non-numeric resul ts) [facility] ([facility]) Hematocrit 39.5 % 36.0-47.0 Normal (applies to non-numeric resul ts) [facility] ([facility]) Mean Corpuscular Volume 100.8 fl 80.0-96.0 Above high normal [facility] ([facility]) Mean Corpuscular Hemoglobin 32.4 pg 27.0-33.0 Norm al (applies to non-numeric results) [facility] ([facility]) Mean Corpuscular HGB Conc 32.2 g/dL 32.0-36.5 Normal (applies to non-numeric results) [facility] ([facility]) Red Cell Distribution Width 12.8 % 11.5-14.5 Norm al (applies to non-numeric results) [facility] ([facility]) Neutrophils % 55.3 % 36.0-66.0 Normal (applies to non-numeric re sults) [facility] ([facility]) Platelet Count, Automated 215 10 150-450 Normal (applies to non-numeric results) [facility] ([facility]) Brown % 11.2 % 2.0-8.0 Above high normal [facility]) Lymph % 28.4 % 24.0-44.0 Normal (applies to non-numeric resul ts) [facility] ([facility]) Baso % 0.4 % 0.0-1.0 Normal (applies to non-numeric resul ts) [facility] ([facility]) Eos % 4.5 % 0.0-3.0 Above high normal [facility]) Immature Granulocyte % 0.2 % 0-3.0 Normal (applies to non-n umeric results) [facility] ([facility]) Nucleated Red Blood Cell % 0.0 % 0-0 Normal (applies to n on-numeric results) [facility] ([facility]) Neutrophils # 2.7 10 1.5-8.5 Normal (applies to non-numeric re sults) [facility] ([facility]) Lymph # 1.4 10 1.5-5.0 Below low normal [facility] ([facility]) Brown # 0.6 10 0.0-0.8 Normal (applies to non-numeric resul ts) [facility] ([facility]) Eos # 0.2 10 0.0-0.5 Normal (applies to non-numeric resul ts) [facility] ([facility]) Baso # 0.0 10 0.0-0.2 Normal (applies to non-numeric resul ts) [facility] ([facility]) ID Date Data Source [facility] DIGITAL / [place] BILATERAL MAMMO SCREENING (Ultraso und if indicated) 03/01/2021 12:00:00 AM EDT [email or web address] ([facility]) Name Value Range Interpretation Code Description Data Summer rce(s) Supporting Document(s) [facility] DIGITAL / [place] BILAT ERAL MAMMO SCREENING (Ultrasound if indicated) [email or web address] ([facility]) ID Date Data Source [id number] 01/18/2021 10:22:00 AM EDT [facility] ([facility] Name Value Range Interpretation Code Description Data Summer rce(s) Supporting Document(s) Appearance of Urine Laboratory test result [facility] ([facility] Color Urine Laboratory test result M [facility]ENT ([facility] PH Urine 5.5 5.0-8.0 [facility] Specific [place] 1.020 1.00-1.03 [facility] ([facility] Bilirubin.total [Presence] in Urine by Test strip Laboratory test res ult [facility] ([facility] Glucose Urine Laboratory test result [facility] ([facility] Ketones Laboratory test result [facility] ([facility] Blood Urine Laboratory test result M [facility] ([facility] Protein Urine Laboratory test result [facility] ([facility] Urobilinogen 0.2 EU/dl 0.2-1.0 [facility] ([facility] Leukocytes Laboratory test result ME [facility] ([facility] Nitrite Laboratory test result [facility] ([facility] ID Date Data Source [id number] 01/18/2021 09:12:00 AM EDT [facility] ([facility] Name Value Range Interpretation Code Description Data Summer rce(s) Supporting Document(s) Creatine kinase [Enzymatic activity/volume] in Serum or Plasma 67 U /L 26-192 [facility] ([facility] NORMAL RANGES Age WBC RBC HGB HCT [...] HCT IS 5% LESS SOURCE FOR DATA: [employer] 1800 OPERATION MANUAL( AUTOMATED BLOOD COUNTS AND [...] ADOLESCENTS REPRESENTS INDIVIDUALA AGED 2-19 YEARS EXCLUSIVE. ID Date Data Source [id number] 01/18/2021 09:12:00 AM EDT [facility] ([facility] Name Value Range Interpretation Code Description Data Summer rce(s) Supporting Document(s) Chol 151 mg/dL 0-200 [facility] ([facility] NORMAL RANGES Age WBC RBC HGB HCT [...] ADOLESCENTS REPRESENTS INDIVIDUALA AGED 2-19 YEARS EXCLUSIVE. Trig 126 mg/dL 40-200 [facility] ([facility] NORMAL RANGES Age WBC RBC HGB HCT [...] HCT IS 5% LESS SOURCE FOR DATA: [employer] 1800 OPERATION MANUAL( AUTOMATED BLOOD COUNTS AND [...] ADOLESCENTS REPRESENTS INDIVIDUALA AGED 2-19 YEARS EXCLUSIVE. LDL_C 59 Calc 75-129 Below low normal [facility] ( [facility] NORMAL RANGES Age WBC RBC HGB HCT [...] HCT IS 5% LESS SOURCE FOR DATA: [employer]ivity 1800 OPERATION MANUAL( AUTOMATED BLOOD COUNTS AND [...] ADOLESCENTS REPRESENTS INDIVIDUALA AGED 2-19 YEARS EXCLUSIVE. Cholesterol in HDL [Mass/volume] in Serum or Plasma 66 mg/dL 45-65 Above high normal [facility] ([facility] ) NORMAL RANGES Age WBC RBC HGB HCT [...] HCT IS 5% LESS SOURCE FOR DATA: [employer] 1800 OPERATION MANUAL( AUTOMATED BLOOD COUNTS AND [...] DESIRABLE: <130 MG/DL <110 MG/DL BORDERLINE-HIGH RISK: 130- 159 MG/DL 110-129 MG/DL HIGH RISK: >160 MG/DL >130 MG/DL *CHILDREN AND ADOLESCENTS REPRESENTS INDIVIDUALA AGED 2-19 YEARS EXCLUSIVE. Cho/HDL Ratio 2.3 CALC [facility] ([facility] NORMAL RANGES Age WBC RBC HGB HCT [...] HCT IS 5% LESS SOURCE FOR DATA: [employer] 1800 OPERATION MANUAL( AUTOMATED BLOOD COUNTS AND [...] DESIRABLE: <130 MG/DL <110 MG/DL BORDERLINE-HIGH RISK: 130- 159 MG/DL 110-129 MG/DL HIGH RISK: >160 MG/DL >130 MG/DL *CHILDREN AND ADOLESCENTS REPRESENTS INDIVIDUALA AGED 2-19 YEARS EXCLUSIVE. ID Date Data Source [id number] 01/18/2021 09:12:00 AM EDTory SEGAL ([facility] Name Value Range Interpretation Code Description Data Summer rce(s) Supporting Document(s) Glu 94 mg/dL 70-110 PHILIPP ([facility] NORMAL RANGES Age WBC RBC HGB HCT [...] HCT IS 5% LESS SOURCE FOR DATA: [employer] 1800 OPERATION MANUAL( AUTOMATED BLOOD COUNTS AND [...] DESIRABLE: <130 MG/DL <110 MG/DL BORDERLINE-HIGH RISK: 130- 159 MG/DL 110-129 MG/DL HIGH RISK: >160 MG/DL >130 MG/DL *CHILDREN AND ADOLESCENTS REPRESENTS INDIVIDUALA AGED 2-19 YEARS EXCLUSIVE. BUN 21 mg/dL 8-23 [facility] ([facility] NORMAL RANGES Age WBC RBC HGB HCT [...] HCT IS 5% LESS SOURCE FOR DATA: [employer] DYN 1800 OPERATION MANUAL( AUTOMATED BLOOD COUNTS [...] DESIRABLE: <130 MG/DL <110 MG/DL BORDERLINE-HIGH RISK: 130- 159 MG/DL 110-129 MG/DL HIGH RISK: >160 MG/DL >130 MG/DL *CHILDREN AND ADOLESCENTS REPRESENTS INDIVIDUALA AGED 2-19 YEARS EXCLUSIVE. Creat 0.6 mg/dL 0.5-1.0 [facility] ([facility] NORMAL RANGES Age WBC RBC HGB HCT [...] HCT IS 5% LESS SOURCE FOR DATA: [employer] 1800 OPERATION MANUAL( AUTOMATED BLOOD COUNTS AND [...] DESIRABLE: <130 MG/DL <110 MG/DL BORDERLINE-HIGH RISK: 130- 159 MG/DL 110-129 MG/DL HIGH RISK: >160 MG/DL >130 MG/DL *CHILDREN AND ADOLESCENTS REPRESENTS INDIVIDUALA AGED 2-19 YEARS EXCLUSIVE. BUN/Creatinine Ratio 33.3 CALC [facility] ([facility] NORMAL RANGES Age WBC RBC HGB HCT [...] HCT IS 5% LESS SOURCE FOR DATA: [employer] 1800 OPERATION MANUAL( AUTOMATED BLOOD COUNTS AND [...] DESIRABLE: <130 MG/DL <110 MG/DL BORDERLINE-HIGH RISK: 130- 159 MG/DL 110-129 MG/DL HIGH RISK: >160 MG/DL >130 MG/DL *CHILDREN AND ADOLESCENTS REPRESENTS INDIVIDUALA AGED 2-19 YEARS EXCLUSIVE. Na 139 mmol/L 136-145 [facility] ([facility] NORMAL RANGES Age WBC RBC HGB HCT [...] HCT IS 5% LESS SOURCE FOR DATA: [employer] 1800 OPERATION MANUAL( AUTOMATED BLOOD COUNTS AND [...] DESIRABLE: <130 MG/DL <110 MG/DL BORDERLINE-HIGH RISK: 130- 159 MG/DL 110-129 MG/DL HIGH RISK: >160 MG/DL >130 MG/DL *CHILDREN AND ADOLESCENTS REPRESENTS INDIVIDUALA AGED 2-19 YEARS EXCLUSIVE. K 5.0 mmol/L 3.5-5.1 [facility] ([facility] NORMAL RANGES Age WBC RBC HGB HCT [...] HCT IS 5% LESS SOURCE FOR DATA: [employer]ivity 1800 OPERATION MANUAL( AUTOMATED BLOOD COUNTS AND [...] DESIRABLE: <130 MG/DL <110 MG/DL BORDERLINE-HIGH RISK: 130- 159 MG/DL 110-129 MG/DL HIGH RISK: >160 MG/DL >130 MG/DL *CHILDREN AND ADOLESCENTS REPRESENTS INDIVIDUALA AGED 2-19 YEARS EXCLUSIVE. CL 101.9 mmol/L 98.0-107.0 [facility] ([facility] NORMAL RANGES Age WBC RBC HGB HCT [...] HCT IS 5% LESS SOURCE FOR DATA: [employer]ivity 1800 OPERATION MANUAL( AUTOMATED BLOOD COUNTS AND [...] DESIRABLE: <130 MG/DL <110 MG/DL BORDERLINE-HIGH RISK: 130- 159 MG/DL 110-129 MG/DL HIGH RISK: >160 MG/DL >130 MG/DL *CHILDREN AND ADOLESCENTS REPRESENTS INDIVIDUALA AGED 2-19 YEARS EXCLUSIVE. Co2 26.0 mmol/L 22.0-29.0 So[facility] ([facility] NORMAL RANGES Age WBC RBC HGB HCT [...] HCT IS 5% LESS SOURCE FOR DATA: [employer]ivity 1800 OPERATION MANUAL( AUTOMATED BLOOD COUNTS AND [...] DESIRABLE: <130 MG/DL <110 MG/DL BORDERLINE-HIGH RISK: 130- 159 MG/DL 110-129 MG/DL HIGH RISK: >160 MG/DL >130 MG/DL *CHILDREN AND ADOLESCENTS REPRESENTS INDIVIDUALA AGED 2-19 YEARS EXCLUSIVE. CA 9.6 mg/dL 8.6-10.2 [facility] ([facility] NORMAL RANGES Age WBC RBC HGB HCT [...] HCT IS 5% LESS SOURCE FOR DATA: [employer] 1800 OPERATION MANUAL( AUTOMATED BLOOD COUNTS AND [...] DESIRABLE: <130 MG/DL <110 MG/DL BORDERLINE-HIGH RISK: 130- 159 MG/DL 110-129 MG/DL HIGH RISK: >160 MG/DL >130 MG/DL *CHILDREN AND ADOLESCENTS REPRESENTS INDIVIDUALA AGED 2-19 YEARS EXCLUSIVE. TP 7.1 g/dL 6.6-8.7 [facility] ([facility] NORMAL RANGES Age WBC RBC HGB HCT [...] DESIRABLE: <130 MG/DL <110 MG/DL BORDERLINE-HIGH RISK: 130- 159 MG/DL 110-129 MG/DL HIGH RISK: >160 MG/DL >130 MG/DL *CHILDREN AND ADOLESCENTS REPRESENTS INDIVIDUALA AGED 2-19 YEARS EXCLUSIVE. Alb 4.7 g/dL 3.4-4.8 [facility] ([facility] NORMAL RANGES Age WBC RBC HGB HCT [...] HCT IS 5% LESS SOURCE FOR DATA: [employer]ivity 1800 OPERATION MANUAL( AUTOMATED BLOOD COUNTS AND [...] DESIRABLE: <130 MG/DL <110 MG/DL BORDERLINE-HIGH RISK: 130- 159 MG/DL 110-129 MG/DL HIGH RISK: >160 MG/DL >130 MG/DL *CHILDREN AND ADOLESCENTS REPRESENTS INDIVIDUALA AGED 2-19 YEARS EXCLUSIVE. A/G Ratio 1.9 CALC [facility] ([facility] NORMAL RANGES Age WBC RBC HGB HCT [...] HCT IS 5% LESS SOURCE FOR DATA: [employer] 1800 OPERATION MANUAL( AUTOMATED BLOOD COUNTS AND [...] DESIRABLE: <130 MG/DL <110 MG/DL BORDERLINE-HIGH RISK: 130- 159 MG/DL 110-129 MG/DL HIGH RISK: >160 MG/DL >130 MG/DL *CHILDREN AND ADOLESCENTS REPRESENTS INDIVIDUALA AGED 2-19 YEARS EXCLUSIVE. Globulin 2.4 CALC [facility] ([facility] NORMAL RANGES Age WBC RBC HGB HCT [...] DESIRABLE: <130 MG/DL <110 MG/DL BORDERLINE-HIGH RISK: 130- 159 MG/DL 110-129 MG/DL HIGH RISK: >160 MG/DL >130 MG/DL *CHILDREN AND ADOLESCENTS REPRESENTS INDIVIDUALA AGED 2-19 YEARS EXCLUSIVE. Alp 97.3 U/L 35-129 [facility] ([facility] NORMAL RANGES Age WBC RBC HGB HCT [...] HCT IS 5% LESS SOURCE FOR DATA: [employer] 1800 OPERATION MANUAL( AUTOMATED BLOOD COUNTS AND [...] DESIRABLE: <130 MG/DL <110 MG/DL BORDERLINE-HIGH RISK: 130- 159 MG/DL 110-129 MG/DL HIGH RISK: >160 MG/DL >130 MG/DL *CHILDREN AND ADOLESCENTS REPRESENTS INDIVIDUALA AGED 2-19 YEARS EXCLUSIVE. Alt (SGPT) 48 U/L 0-41 Above high normal [facility] ([facility] NORMAL RANGES Age WBC RBC HGB HCT [...] HCT IS 5% LESS SOURCE FOR DATA: [employer]ivity 1800 OPERATION MANUAL( AUTOMATED BLOOD COUNTS AND [...] DESIRABLE: <130 MG/DL <110 MG/DL BORDERLINE-HIGH RISK: 130- 159 MG/DL 110-129 MG/DL HIGH RISK: >160 MG/DL >130 MG/DL *CHILDREN AND ADOLESCENTS REPRESENTS INDIVIDUALA AGED 2-19 YEARS EXCLUSIVE. Ast (Sgot) 46 U/L 0-40 Above high normal [facility] ([facility] NORMAL RANGES Age WBC RBC HGB HCT [...] HCT IS 5% LESS SOURCE FOR DATA: [employer] DYN 1800 OPERATION MANUAL( AUTOMATED BLOOD COUNTS [...] DESIRABLE: <130 MG/DL <110 MG/DL BORDERLINE-HIGH RISK: 130- 159 MG/DL 110-129 MG/DL HIGH RISK: >160 MG/DL >130 MG/DL *CHILDREN AND ADOLESCENTS REPRESENTS INDIVIDUALA AGED 2-19 YEARS EXCLUSIVE. Tbili 1.27 mg/dL 0.0-1.2 Above high normal [facility] ([facility] NORMAL RANGES Age WBC RBC HGB HCT [...] HCT IS 5% LESS SOURCE FOR DATA: [employer] 1800 OPERATION MANUAL( AUTOMATED BLOOD COUNTS AND [...] DESIRABLE: <130 MG/DL <110 MG/DL BORDERLINE-HIGH RISK: 130- 159 MG/DL 110-129 MG/DL HIGH RISK: >160 MG/DL >130 MG/DL *CHILDREN AND ADOLESCENTS REPRESENTS INDIVIDUALA AGED 2-19 YEARS EXCLUSIVE. Anion Gap 16 mmol/L [facility] ([facility] NORMAL RANGES Age WBC RBC HGB HCT [...] HCT IS 5% LESS SOURCE FOR DATA: [employer] 1800 OPERATION MANUAL( AUTOMATED BLOOD COUNTS AND [...] DESIRABLE: <130 MG/DL <110 MG/DL BORDERLINE-HIGH RISK: 130- 159 MG/DL 110-129 MG/DL HIGH RISK: >160 MG/DL >130 MG/DL *CHILDREN AND ADOLESCENTS REPRESENTS INDIVIDUALA AGED 2-19 YEARS EXCLUSIVE. Osmolality-Calculated 280.8 CALC [facility] ([facility] NORMAL RANGES Age WBC RBC HGB HCT [...] HCT IS 5% LESS SOURCE FOR DATA: [employer] 1800 OPERATION MANUAL( AUTOMATED BLOOD COUNTS AND [...] DESIRABLE: <130 MG/DL <110 MG/DL BORDERLINE-HIGH RISK: 130- 159 MG/DL 110-129 MG/DL HIGH RISK: >160 MG/DL >130 MG/DL *CHILDREN AND ADOLESCENTS REPRESENTS INDIVIDUALA AGED 2-19 YEARS EXCLUSIVE. eGFR 110 # [facility] ( [facility] CKD-EPI eGFR Non-Afr. [place] 95 # [facility] ([facility] CKD-EPI ID Date Data Source [id number] 01/18/2021 09:12:00 AM EDT MED[facility] ([facility] Name Value Range Interpretation Code Description Data Summer rce(s) Supporting Document(s) WBC 4.8 10E3/uL 4.1-10.9 [facility] ([facility] NORMAL RANGES Age WBC RBC HGB HCT [...] HCT IS 5% LESS SOURCE FOR DATA: [employer] 1800 OPERATION MANUAL( AUTOMATED BLOOD COUNTS AND [...] DESIRABLE: <130 MG/DL <110 MG/DL BORDERLINE-HIGH RISK: 130- 159 MG/DL 110-129 MG/DL HIGH RISK: >160 MG/DL >130 MG/DL *CHILDREN AND ADOLESCENTS REPRESENTS INDIVIDUALA AGED 2-19 YEARS EXCLUSIVE. RBC 4.11 10E6/uL 4.20-6.30 Below low normal [facility] ([facility] NORMAL RANGES Age WBC RBC HGB HCT [...] HCT IS 5% LESS SOURCE FOR DATA: Jump[employer] DYN 1800 OPERATION MANUAL( AUTOMATED BLOOD COUNTS [...] DESIRABLE: <130 MG/DL <110 MG/DL BORDERLINE-HIGH RISK: 130- 159 MG/DL 110-129 MG/DL HIGH RISK: >160 MG/DL >130 MG/DL *CHILDREN AND ADOLESCENTS REPRESENTS INDIVIDUALA AGED 2-19 YEARS EXCLUSIVE. HGB 13.3 g/dL 12.0-18.0 [facility] ([facility] NORMAL RANGES Age WBC RBC HGB HCT [...] HCT IS 5% LESS SOURCE FOR DATA: [employer]ivity 1800 OPERATION MANUAL( AUTOMATED BLOOD COUNTS AND [...] DESIRABLE: <130 MG/DL <110 MG/DL BORDERLINE-HIGH RISK: 130- 159 MG/DL 110-129 MG/DL HIGH RISK: >160 MG/DL >130 MG/DL *CHILDREN AND ADOLESCENTS REPRESENTS INDIVIDUALA AGED 2-19 YEARS EXCLUSIVE. HCT 40.6 % 37.0-51.0 [facility] ([facility] NORMAL RANGES Age WBC RBC HGB HCT [...] HCT IS 5% LESS SOURCE FOR DATA: [employer] 1800 OPERATION MANUAL( AUTOMATED BLOOD COUNTS AND [...] DESIRABLE: <130 MG/DL <110 MG/DL BORDERLINE-HIGH RISK: 130- 159 MG/DL 110-129 MG/DL HIGH RISK: >160 MG/DL >130 MG/DL *CHILDREN AND ADOLESCENTS REPRESENTS INDIVIDUALA AGED 2-19 YEARS EXCLUSIVE. MCV 98.8 fL 80.0-97.0 Above high normal [facility] ([facility] NORMAL RANGES Age WBC RBC HGB HCT [...] HCT IS 5% LESS SOURCE FOR DATA: [employer] DYN 1800 OPERATION MANUAL( AUTOMATED BLOOD COUNTS [...] DESIRABLE: <130 MG/DL <110 MG/DL BORDERLINE-HIGH RISK: 130- 159 MG/DL 110-129 MG/DL HIGH RISK: >160 MG/DL >130 MG/DL *CHILDREN AND ADOLESCENTS REPRESENTS INDIVIDUALA AGED 2-19 YEARS EXCLUSIVE. MCH 32.4 pg 26.0-32.0 Above high normal [facility] ([facility] NORMAL RANGES Age WBC RBC HGB HCT [...] HCT IS 5% LESS SOURCE FOR DATA: [employer] 1800 OPERATION MANUAL( AUTOMATED BLOOD COUNTS AND [...] DESIRABLE: <130 MG/DL <110 MG/DL BORDERLINE-HIGH RISK: 130- 159 MG/DL 110-129 MG/DL HIGH RISK: >160 MG/DL >130 MG/DL *CHILDREN AND ADOLESCENTS REPRESENTS INDIVIDUALA AGED 2-19 YEARS EXCLUSIVE. MCHC 32.8 g/dL 31.0-36.0 [facility] NORMAL RANGES Age WBC RBC HGB HCT [...] HCT IS 5% LESS SOURCE FOR DATA: [employer] 1800 OPERATION MANUAL( AUTOMATED BLOOD COUNTS AND [...] DESIRABLE: <130 MG/DL <110 MG/DL BORDERLINE-HIGH RISK: 130- 159 MG/DL 110-129 MG/DL HIGH RISK: >160 MG/DL >130 MG/DL *CHILDREN AND ADOLESCENTS REPRESENTS INDIVIDUALA AGED 2-19 YEARS EXCLUSIVE. PLT 207 10E3/uL 140-440 [facility] ([facility] NORMAL RANGES Age WBC RBC HGB HCT [...] HCT IS 5% LESS SOURCE FOR DATA: [employer] 1800 OPERATION MANUAL( AUTOMATED BLOOD COUNTS AND [...] DESIRABLE: <130 MG/DL <110 MG/DL BORDERLINE-HIGH RISK: 130- 159 MG/DL 110-129 MG/DL HIGH RISK: >160 MG/DL >130 MG/DL *CHILDREN AND ADOLESCENTS REPRESENTS INDIVIDUALA AGED 2-19 YEARS EXCLUSIVE. Lym% 27.4 % 10.0-58.5 [facility] ([facility] NORMAL RANGES Age WBC RBC HGB HCT [...] HCT IS 5% LESS SOURCE FOR DATA: [employer] 1800 OPERATION MANUAL( AUTOMATED BLOOD COUNTS AND [...] DESIRABLE: <130 MG/DL <110 MG/DL BORDERLINE-HIGH RISK: 130- 159 MG/DL 110-129 MG/DL HIGH RISK: >160 MG/DL >130 MG/DL *CHILDREN AND ADOLESCENTS REPRESENTS INDIVIDUALA AGED 2-19 YEARS EXCLUSIVE. RDW-CV 12.7 % 11.5-14.5 [facility] NORMAL RANGES Age WBC RBC HGB HCT [...] HCT IS 5% LESS SOURCE FOR DATA: [employer]ivity 1800 OPERATION MANUAL( AUTOMATED BLOOD COUNTS AND [...] DESIRABLE: <130 MG/DL <110 MG/DL BORDERLINE-HIGH RISK: 130- 159 MG/DL 110-129 MG/DL HIGH RISK: >160 MG/DL >130 MG/DL *CHILDREN AND ADOLESCENTS REPRESENTS INDIVIDUALA AGED 2-19 YEARS EXCLUSIVE. Neut% 54.9 % 37.0-92.0 [facility] ([facility] NORMAL RANGES Age WBC RBC HGB HCT [...] HCT IS 5% LESS SOURCE FOR DATA: [employer] 1800 OPERATION MANUAL( AUTOMATED BLOOD COUNTS AND [...] DESIRABLE: <130 MG/DL <110 MG/DL BORDERLINE-HIGH RISK: 130- 159 MG/DL 110-129 MG/DL HIGH RISK: >160 MG/DL >130 MG/DL *CHILDREN AND ADOLESCENTS REPRESENTS INDIVIDUALA AGED 2-19 YEARS EXCLUSIVE. MXD% 17.7 % 0.1-24.0 [facility] ([facility] NORMAL RANGES Age WBC RBC HGB HCT [...] HCT IS 5% LESS SOURCE FOR DATA: [employer] 1800 OPERATION MANUAL( AUTOMATED BLOOD COUNTS AND [...] DESIRABLE: <130 MG/DL <110 MG/DL BORDERLINE-HIGH RISK: 130- 159 MG/DL 110-129 MG/DL HIGH RISK: >160 MG/DL >130 MG/DL *CHILDREN AND ADOLESCENTS REPRESENTS INDIVIDUALA AGED 2-19 YEARS EXCLUSIVE. Lym# 1.3 10E3/uL 0.6-4.1 [place] ([facility] NORMAL RANGES Age WBC RBC HGB HCT [...] HCT IS 5% LESS SOURCE FOR DATA: [employer] 1800 OPERATION MANUAL( AUTOMATED BLOOD COUNTS AND [...] DESIRABLE: <130 MG/DL <110 MG/DL BORDERLINE-HIGH RISK: 130- 159 MG/DL 110-129 MG/DL HIGH RISK: >160 MG/DL >130 MG/DL *CHILDREN AND ADOLESCENTS REPRESENTS INDIVIDUALA AGED 2-19 YEARS EXCLUSIVE. Neut# 2.7 % 2.0-7.8 [facility] ([facility] NORMAL RANGES Age WBC RBC HGB HCT [...] HCT IS 5% LESS SOURCE FOR DATA: [employer] 1800 OPERATION MANUAL( AUTOMATED BLOOD COUNTS AND [...] DESIRABLE: <130 MG/DL <110 MG/DL BORDERLINE-HIGH RISK: 130- 159 MG/DL 110-129 MG/DL HIGH RISK: >160 MG/DL >130 MG/DL *CHILDREN AND ADOLESCENTS REPRESENTS INDIVIDUALA AGED 2-19 YEARS EXCLUSIVE. MPV 10.0 fL 9.0-13.0 [facility] ([facility] NORMAL RANGES Age WBC RBC HGB HCT [...] HCT IS 5% LESS SOURCE FOR DATA: [employer] 1800 OPERATION MANUAL( AUTOMATED BLOOD COUNTS AND [...] DESIRABLE: <130 MG/DL <110 MG/DL BORDERLINE-HIGH RISK: 130- 159 MG/DL 110-129 MG/DL HIGH RISK: >160 MG/DL >130 MG/DL *CHILDREN AND ADOLESCENTS REPRESENTS INDIVIDUALA AGED 2-19 YEARS EXCLUSIVE. MXD# 0.8 10E3/uL 0.0-1.8 [facility] ([facility] NORMAL RANGES Age WBC RBC HGB HCT [...] HCT IS 5% LESS SOURCE FOR DATA: [employer] 1800 OPERATION MANUAL( AUTOMATED BLOOD COUNTS AND [...] DESIRABLE: <130 MG/DL <110 MG/DL BORDERLINE-HIGH RISK: 130- 159 MG/DL 110-129 MG/DL HIGH RISK: >160 MG/DL >130 MG/DL *CHILDREN AND ADOLESCENTS REPRESENTS INDIVIDUALA AGED 2-19 YEARS EXCLUSIVE. ID Date Data Source [id number] 09/27/2020 10:28:00 AM EST MED[facility] ([facility] Name Value Range Interpretation Code Description Data Summer rce(s) Supporting Document(s) Appearance of Urine Laboratory test result [facility] ([facility] Color Urine Laboratory test result M EDENT ([facility] PH Urine 5.5 5.0-8.0 [facility] ([facility] Specific [place] 1.020 1.00-1.03 [facility] ([facility] Bilirubin.total [Presence] in Urine by Test strip Laboratory test res ult [facility] ([facility] Glucose Urine Laboratory test result [facility] ([facility] Blood Urine Laboratory test result M EDENT ([facility] Ketones Laboratory test result [facility] ([facility] Protein Urine Laboratory test result [facility] ([facility] Urobilinogen 0.2 EU/dl 0.2-1.0 [facility] ([facility] Nitrite Laboratory test result MEDVILMA ([facility] Leukocytes Laboratory test result [facility] ([facility] ID Date Data Source [id number] 09/27/2020 09:03:00 AM EST MED[facility] ([facility] Name Value Range Interpretation Code Description Data Summer rce(s) Supporting Document(s) Creatine kinase [Enzymatic activity/volume] in Serum or Plasma 49 U /L 26-192 [facility] ([facility] NORMAL RANGES Age WBC RBC HGB HCT [...] HCT IS 5% LESS SOURCE FOR DATA: [employer] DYN 1800 OPERATION MANUAL( AUTOMATED BLOOD COUNTS [...] ADOLESCENTS REPRESENTS INDIVIDUALA AGED 2-19 YEARS EXCLUSIVE. ID Date Data Source [id number] 09/27/2020 09:03:00 AM EST [facility] ([facility] Name Value Range Interpretation Code Description Data Summer rce(s) Supporting Document(s) Chol 153 mg/dL 0-200 [facility] ([facility] NORMAL RANGES Age WBC RBC HGB HCT [...] HCT IS 5% LESS SOURCE FOR DATA: [employer] 1800 OPERATION MANUAL( AUTOMATED BLOOD COUNTS AND [...] ADOLESCENTS REPRESENTS INDIVIDUALA AGED 2-19 YEARS EXCLUSIVE. Trig 128 mg/dL 40-200 [facility] ([facility] NORMAL RANGES Age WBC RBC HGB HCT [...] HCT IS 5% LESS SOURCE FOR DATA: [employer] 1800 OPERATION MANUAL( AUTOMATED BLOOD COUNTS AND [...] ADOLESCENTS REPRESENTS INDIVIDUALA AGED 2-19 YEARS EXCLUSIVE. Cholesterol in HDL [Mass/volume] in Serum or Plasma 63 mg/dL 45-65 [facility] ([facility] NORMAL RANGES Age WBC RBC HGB HCT [...] HCT IS 5% LESS SOURCE FOR DATA: [employer] DYN 1800 OPERATION MANUAL( AUTOMATED BLOOD COUNTS [...] DESIRABLE: <130 MG/DL <110 MG/DL BORDERLINE-HIGH RISK: 130- 159 MG/DL 110-129 MG/DL HIGH RISK: >160 MG/DL >130 MG/DL *CHILDREN AND ADOLESCENTS REPRESENTS INDIVIDUALA AGED 2-19 YEARS EXCLUSIVE. LDL_C 64 Calc 75-129 Below low normal [facility] ( [facility] NORMAL RANGES Age WBC RBC HGB HCT [...] HCT IS 5% LESS SOURCE FOR DATA: [employer] 1800 OPERATION MANUAL( AUTOMATED BLOOD COUNTS AND [...] DESIRABLE: <130 MG/DL <110 MG/DL BORDERLINE-HIGH RISK: 130- 159 MG/DL 110-129 MG/DL HIGH RISK: >160 MG/DL >130 MG/DL *CHILDREN AND ADOLESCENTS REPRESENTS INDIVIDUALA AGED 2-19 YEARS EXCLUSIVE. Cho/HDL Ratio 2.4 CALC PHILIPP ([facility] NORMAL RANGES Age WBC RBC HGB HCT [...] HCT IS 5% LESS SOURCE FOR DATA: [employer] 1800 OPERATION MANUAL( AUTOMATED BLOOD COUNTS AND [...] DESIRABLE: <130 MG/DL <110 MG/DL BORDERLINE-HIGH RISK: 130- 159 MG/DL 110-129 MG/DL HIGH RISK: >160 MG/DL >130 MG/DL *CHILDREN AND ADOLESCENTS REPRESENTS INDIVIDUALA AGED 2-19 YEARS EXCLUSIVE. ID Date Data Source [id number] 09/27/2020 09:03:00 AM EST [facility] ([facility] Name Value Range Interpretation Code Description Data Summer rce(s) Supporting Document(s) Glu 96 mg/dL 70-110 [facility] ([facility] NORMAL RANGES Age WBC RBC HGB HCT [...] HCT IS 5% LESS SOURCE FOR DATA: [employer] 1800 OPERATION MANUAL( AUTOMATED BLOOD COUNTS AND [...] DESIRABLE: <130 MG/DL <110 MG/DL BORDERLINE-HIGH RISK: 130- 159 MG/DL 110-129 MG/DL HIGH RISK: >160 MG/DL >130 MG/DL *CHILDREN AND ADOLESCENTS REPRESENTS INDIVIDUALA AGED 2-19 YEARS EXCLUSIVE. Creat 0.6 mg/dL 0.5-1.0 [facility] ([facility] NORMAL RANGES Age WBC RBC HGB HCT [...] HCT IS 5% LESS SOURCE FOR DATA: [employer] 1800 OPERATION MANUAL( AUTOMATED BLOOD COUNTS AND [...] DESIRABLE: <130 MG/DL <110 MG/DL BORDERLINE-HIGH RISK: 130- 159 MG/DL 110-129 MG/DL HIGH RISK: >160 MG/DL >130 MG/DL *CHILDREN AND ADOLESCENTS REPRESENTS INDIVIDUALA AGED 2-19 YEARS EXCLUSIVE. BUN 14 mg/dL 8-23 [facility] ([facility] NORMAL RANGES Age WBC RBC HGB HCT [...] HCT IS 5% LESS SOURCE FOR DATA: [employer] DYN 1800 OPERATION MANUAL( AUTOMATED BLOOD COUNTS [...] DESIRABLE: <130 MG/DL <110 MG/DL BORDERLINE-HIGH RISK: 130- 159 MG/DL 110-129 MG/DL HIGH RISK: >160 MG/DL >130 MG/DL *CHILDREN AND ADOLESCENTS REPRESENTS INDIVIDUALA AGED 2-19 YEARS EXCLUSIVE. BUN/Creatinine Ratio 25.0 CALC MED[facility] ([facility] NORMAL RANGES Age WBC RBC HGB HCT [...] HCT IS 5% LESS SOURCE FOR DATA: [employer] 1800 OPERATION MANUAL( AUTOMATED BLOOD COUNTS AND [...] DESIRABLE: <130 MG/DL <110 MG/DL BORDERLINE-HIGH RISK: 130- 159 MG/DL 110-129 MG/DL HIGH RISK: >160 MG/DL >130 MG/DL *CHILDREN AND ADOLESCENTS REPRESENTS INDIVIDUALA AGED 2-19 YEARS EXCLUSIVE. Na 137 mmol/L 136-145 [facility] ([facility] NORMAL RANGES Age WBC RBC HGB HCT [...] HCT IS 5% LESS SOURCE FOR DATA: [employer] 1800 OPERATION MANUAL( AUTOMATED BLOOD COUNTS AND [...] DESIRABLE: <130 MG/DL <110 MG/DL BORDERLINE-HIGH RISK: 130- 159 MG/DL 110-129 MG/DL HIGH RISK: >160 MG/DL >130 MG/DL *CHILDREN AND ADOLESCENTS REPRESENTS INDIVIDUALA AGED 2-19 YEARS EXCLUSIVE. CL 102.4 mmol/L 98.0-107.0 [facility] ([facility] NORMAL RANGES Age WBC RBC HGB HCT [...] HCT IS 5% LESS SOURCE FOR DATA: [employer] 1800 OPERATION MANUAL( AUTOMATED BLOOD COUNTS AND [...] DESIRABLE: <130 MG/DL <110 MG/DL BORDERLINE-HIGH RISK: 130- 159 MG/DL 110-129 MG/DL HIGH RISK: >160 MG/DL >130 MG/DL *CHILDREN AND ADOLESCENTS REPRESENTS INDIVIDUALA AGED 2-19 YEARS EXCLUSIVE. K 4.9 mmol/L 3.5-5.1 [facility] ([facility] NORMAL RANGES Age WBC RBC HGB HCT [...] HCT IS 5% LESS SOURCE FOR DATA: [employer] 1800 OPERATION MANUAL( AUTOMATED BLOOD COUNTS AND [...] DESIRABLE: <130 MG/DL <110 MG/DL BORDERLINE-HIGH RISK: 130- 159 MG/DL 110-129 MG/DL HIGH RISK: >160 MG/DL >130 MG/DL *CHILDREN AND ADOLESCENTS REPRESENTS INDIVIDUALA AGED 2-19 YEARS EXCLUSIVE. Co2 26.9 mmol/L 22.0-29.0 [facility] NORMAL RANGES Age WBC RBC HGB HCT [...] HCT IS 5% LESS SOURCE FOR DATA: [employer] 1800 OPERATION MANUAL( AUTOMATED BLOOD COUNTS AND [...] DESIRABLE: <130 MG/DL <110 MG/DL BORDERLINE-HIGH RISK: 130- 159 MG/DL 110-129 MG/DL HIGH RISK: >160 MG/DL >130 MG/DL *CHILDREN AND ADOLESCENTS REPRESENTS INDIVIDUALA AGED 2-19 YEARS EXCLUSIVE. CA 9.3 mg/dL 8.6-10.2 [facility] ([facility] NORMAL RANGES Age WBC RBC HGB HCT [...] HCT IS 5% LESS SOURCE FOR DATA: [employer] 1800 OPERATION MANUAL( AUTOMATED BLOOD COUNTS AND [...] DESIRABLE: <130 MG/DL <110 MG/DL BORDERLINE-HIGH RISK: 130- 159 MG/DL 110-129 MG/DL HIGH RISK: >160 MG/DL >130 MG/DL *CHILDREN AND ADOLESCENTS REPRESENTS INDIVIDUALA AGED 2-19 YEARS EXCLUSIVE. TP 6.6 g/dL 6.6-8.7 [facility] ([facility] [facility] NORMAL RANGES Age WBC RBC HGB HCT [...] HCT IS 5% LESS SOURCE FOR DATA: [employer]ivity 1800 OPERATION MANUAL( AUTOMATED BLOOD COUNTS AND [...] DESIRABLE: <130 MG/DL <110 MG/DL BORDERLINE-HIGH RISK: 130- 159 MG/DL 110-129 MG/DL HIGH RISK: >160 MG/DL >130 MG/DL *CHILDREN AND ADOLESCENTS REPRESENTS INDIVIDUALA AGED 2-19 YEARS EXCLUSIVE. A/G Ratio 1.8 [facility]C [facility] NORMAL RANGES Age WBC RBC HGB HCT [...] HCT IS 5% LESS SOURCE FOR DATA: [employer]ivity 1800 OPERATION MANUAL( AUTOMATED BLOOD COUNTS AND [...] DESIRABLE: <130 MG/DL <110 MG/DL BORDERLINE-HIGH RISK: 130- 159 MG/DL 110-129 MG/DL HIGH RISK: >160 MG/DL >130 MG/DL *CHILDREN AND ADOLESCENTS REPRESENTS INDIVIDUALA AGED 2-19 YEARS EXCLUSIVE. Alb 4.3 g/dL 3.4-4.8 [facility] ([facility] NORMAL RANGES Age WBC RBC HGB HCT [...] HCT IS 5% LESS SOURCE FOR DATA: [employer]ivity 1800 OPERATION MANUAL( AUTOMATED BLOOD COUNTS AND [...] DESIRABLE: <130 MG/DL <110 MG/DL BORDERLINE-HIGH RISK: 130- 159 MG/DL 110-129 MG/DL HIGH RISK: >160 MG/DL >130 MG/DL *CHILDREN AND ADOLESCENTS REPRESENTS INDIVIDUALA AGED 2-19 YEARS EXCLUSIVE. Globulin 2.4 CALC MEDENT ([facility] NORMAL RANGES Age WBC RBC HGB HCT [...] HCT IS 5% LESS SOURCE FOR DATA: [employer]ivity 1800 OPERATION MANUAL( AUTOMATED BLOOD COUNTS AND [...] DESIRABLE: <130 MG/DL <110 MG/DL BORDERLINE-HIGH RISK: 130- 159 MG/DL 110-129 MG/DL HIGH RISK: >160 MG/DL >130 MG/DL *CHILDREN AND ADOLESCENTS REPRESENTS INDIVIDUALA AGED 2-19 YEARS EXCLUSIVE. Alt (SGPT) 29 U/L 0-41 [facility] ([facility] NORMAL RANGES Age WBC RBC HGB HCT [...] HCT IS 5% LESS SOURCE FOR DATA: [employer]ivity 1800 OPERATION MANUAL( AUTOMATED BLOOD COUNTS AND [...] DESIRABLE: <130 MG/DL <110 MG/DL BORDERLINE-HIGH RISK: 130- 159 MG/DL 110-129 MG/DL HIGH RISK: >160 MG/DL >130 MG/DL *CHILDREN AND ADOLESCENTS REPRESENTS INDIVIDUALA AGED 2-19 YEARS EXCLUSIVE. Alp 83.9 U/L 35-129 [facility] ([facility] NORMAL RANGES Age WBC RBC HGB HCT [...] HCT IS 5% LESS SOURCE FOR DATA: [employer]ivity 1800 OPERATION MANUAL( AUTOMATED BLOOD COUNTS AND [...] DESIRABLE: <130 MG/DL <110 MG/DL BORDERLINE-HIGH RISK: 130- 159 MG/DL 110-129 MG/DL HIGH RISK: >160 MG/DL >130 MG/DL *CHILDREN AND ADOLESCENTS REPRESENTS INDIVIDUALA AGED 2-19 YEARS EXCLUSIVE. Tbili 1.21 mg/dL 0.0-1.2 Above high normal [facility] ([facility] NORMAL RANGES Age WBC RBC HGB HCT [...] HCT IS 5% LESS SOURCE FOR DATA: [employer]ivity 1800 OPERATION MANUAL( AUTOMATED BLOOD COUNTS AND [...] DESIRABLE: <130 MG/DL <110 MG/DL BORDERLINE-HIGH RISK: 130- 159 MG/DL 110-129 MG/DL HIGH RISK: >160 MG/DL >130 MG/DL *CHILDREN AND ADOLESCENTS REPRESENTS INDIVIDUALA AGED 2-19 YEARS EXCLUSIVE. Ast (Sgot) 28 U/L 0-40 [facility] ([facility] NORMAL RANGES Age WBC RBC HGB HCT [...] HCT IS 5% LESS SOURCE FOR DATA: Adaptivity 1800 OPERATION MANUAL( AUTOMATED BLOOD COUNTS AND [...] DESIRABLE: <130 MG/DL <110 MG/DL BORDERLINE-HIGH RISK: 130- 159 MG/DL 110-129 MG/DL HIGH RISK: >160 MG/DL >130 MG/DL *CHILDREN AND ADOLESCENTS REPRESENTS INDIVIDUALA AGED 2-19 YEARS EXCLUSIVE. Anion Gap 12 mmol/L [facility] ([facility] NORMAL RANGES Age WBC RBC HGB HCT [...] HCT IS 5% LESS SOURCE FOR DATA: [employer]ivity 1800 OPERATION MANUAL( AUTOMATED BLOOD COUNTS AND [...] DESIRABLE: <130 MG/DL <110 MG/DL BORDERLINE-HIGH RISK: 130- 159 MG/DL 110-129 MG/DL HIGH RISK: >160 MG/DL >130 MG/DL *CHILDREN AND ADOLESCENTS REPRESENTS INDIVIDUALA AGED 2-19 YEARS EXCLUSIVE. Osmolality-Calculated 273.7 CALC MED ENT ([facility] NORMAL RANGES Age WBC RBC HGB HCT [...] HCT IS 5% LESS SOURCE FOR DATA: [employer]ivity 1800 OPERATION MANUAL( AUTOMATED BLOOD COUNTS AND [...] DESIRABLE: <130 MG/DL <110 MG/DL BORDERLINE-HIGH RISK: 130- 159 MG/DL 110-129 MG/DL HIGH RISK: >160 MG/DL >130 MG/DL *CHILDREN AND ADOLESCENTS REPRESENTS INDIVIDUALA AGED 2-19 YEARS EXCLUSIVE. eGFR 110 # MED[facility] ( [facility] CKD-EPI eGFR Non-Afr. [place] 95 # MED[facility] ([facility] CKD-EPI ID Date Data Source [id number] 09/27/2020 09:03:00 AM EST [facility] ([facility] Name Value Range Interpretation Code Description Data Summer rce(s) Supporting Document(s) WBC 3.9 10E3/uL 4.1-10.9 Below low normal [facility] ([facility] NORMAL RANGES Age WBC RBC HGB HCT [...] HCT IS 5% LESS SOURCE FOR DATA: [employer]ivity 1800 OPERATION MANUAL( AUTOMATED BLOOD COUNTS AND [...] DESIRABLE: <130 MG/DL <110 MG/DL BORDERLINE-HIGH RISK: 130- 159 MG/DL 110-129 MG/DL HIGH RISK: >160 MG/DL >130 MG/DL *CHILDREN AND ADOLESCENTS REPRESENTS INDIVIDUALA AGED 2-19 YEARS EXCLUSIVE. HGB 12.6 g/dL 12.0-18.0 [facility] ([facility] NORMAL RANGES Age WBC RBC HGB HCT [...] HCT IS 5% LESS SOURCE FOR DATA: [employer]ivity 1800 OPERATION MANUAL( AUTOMATED BLOOD COUNTS AND [...] DESIRABLE: <130 MG/DL <110 MG/DL BORDERLINE-HIGH RISK: 130- 159 MG/DL 110-129 MG/DL HIGH RISK: >160 MG/DL >130 MG/DL *CHILDREN AND ADOLESCENTS REPRESENTS INDIVIDUALA AGED 2-19 YEARS EXCLUSIVE. RBC 3.83 10E6/uL 4.20-6.30 Below low normal [facility] ([facility] NORMAL RANGES Age WBC RBC HGB HCT [...] HCT IS 5% LESS SOURCE FOR DATA: [employer]ivity 1800 OPERATION MANUAL( AUTOMATED BLOOD COUNTS AND [...] DESIRABLE: <130 MG/DL <110 MG/DL BORDERLINE-HIGH RISK: 130- 159 MG/DL 110-129 MG/DL HIGH RISK: >160 MG/DL >130 MG/DL *CHILDREN AND ADOLESCENTS REPRESENTS INDIVIDUALA AGED 2-19 YEARS EXCLUSIVE. HCT 38.6 % 37.0-51.0 [facility] ([facility] NORMAL RANGES Age WBC RBC HGB HCT [...] HCT IS 5% LESS SOURCE FOR DATA: [employer]ivity 1800 OPERATION MANUAL( AUTOMATED BLOOD COUNTS AND [...] DESIRABLE: <130 MG/DL <110 MG/DL BORDERLINE-HIGH RISK: 130- 159 MG/DL 110-129 MG/DL HIGH RISK: >160 MG/DL >130 MG/DL *CHILDREN AND ADOLESCENTS REPRESENTS INDIVIDUALA AGED 2-19 YEARS EXCLUSIVE. MCV 100.8 fL 80.0-97.0 Above high normal [facility] ([facility] NORMAL RANGES Age WBC RBC HGB HCT [...] HCT IS 5% LESS SOURCE FOR DATA: [employer]ivity 1800 OPERATION MANUAL( AUTOMATED BLOOD COUNTS AND [...] DESIRABLE: <130 MG/DL <110 MG/DL BORDERLINE-HIGH RISK: 130- 159 MG/DL 110-129 MG/DL HIGH RISK: >160 MG/DL >130 MG/DL *CHILDREN AND ADOLESCENTS REPRESENTS INDIVIDUALA AGED 2-19 YEARS EXCLUSIVE. MCH 32.9 pg 26.0-32.0 Above high normal [facility] ([facility] NORMAL RANGES Age WBC RBC HGB HCT [...] HCT IS 5% LESS SOURCE FOR DATA: [employer]ivity 1800 OPERATION MANUAL( AUTOMATED BLOOD COUNTS AND [...] DESIRABLE: <130 MG/DL <110 MG/DL BORDERLINE-HIGH RISK: 130- 159 MG/DL 110-129 MG/DL HIGH RISK: >160 MG/DL >130 MG/DL *CHILDREN AND ADOLESCENTS REPRESENTS INDIVIDUALA AGED 2-19 YEARS EXCLUSIVE. MCHC 32.6 g/dL 31.0-36.0 [facility] ([facility] NORMAL RANGES Age WBC RBC HGB HCT [...] HCT IS 5% LESS SOURCE FOR DATA: [employer]ivity 1800 OPERATION MANUAL( AUTOMATED BLOOD COUNTS AND [...] DESIRABLE: <130 MG/DL <110 MG/DL BORDERLINE-HIGH RISK: 130- 159 MG/DL 110-129 MG/DL HIGH RISK: >160 MG/DL >130 MG/DL *CHILDREN AND ADOLESCENTS REPRESENTS INDIVIDUALA AGED 2-19 YEARS EXCLUSIVE. RDW-CV 12.1 % 11.5-14.5 [facility] ([facility] NORMAL RANGES Age WBC RBC HGB HCT [...] HCT IS 5% LESS SOURCE FOR DATA: [employer]ivity 1800 OPERATION MANUAL( AUTOMATED BLOOD COUNTS AND [...] DESIRABLE: <130 MG/DL <110 MG/DL BORDERLINE-HIGH RISK: 130- 159 MG/DL 110-129 MG/DL HIGH RISK: >160 MG/DL >130 MG/DL *CHILDREN AND ADOLESCENTS REPRESENTS INDIVIDUALA AGED 2-19 YEARS EXCLUSIVE. PLT 188 10E3/uL 140-440 [facility] ([facility] NORMAL RANGES Age WBC RBC HGB HCT [...] HCT IS 5% LESS SOURCE FOR DATA: [employer]ivity 1800 OPERATION MANUAL( AUTOMATED BLOOD COUNTS AND [...] DESIRABLE: <130 MG/DL <110 MG/DL BORDERLINE-HIGH RISK: 130- 159 MG/DL 110-129 MG/DL HIGH RISK: >160 MG/DL >130 MG/DL *CHILDREN AND ADOLESCENTS REPRESENTS INDIVIDUALA AGED 2-19 YEARS EXCLUSIVE. Neut% 49.6 % 37.0-92.0 [facility] ([facility] NORMAL RANGES Age WBC RBC HGB HCT [...] HCT IS 5% LESS SOURCE FOR DATA: [employer]ivity 1800 OPERATION MANUAL( AUTOMATED BLOOD COUNTS AND [...] DESIRABLE: <130 MG/DL <110 MG/DL BORDERLINE-HIGH RISK: 130- 159 MG/DL 110-129 MG/DL HIGH RISK: >160 MG/DL >130 MG/DL *CHILDREN AND ADOLESCENTS REPRESENTS INDIVIDUALA AGED 2-19 YEARS EXCLUSIVE. Lym% 33.9 % 10.0-58.5 [facility] ([facility] NORMAL RANGES Age WBC RBC HGB HCT [...] HCT IS 5% LESS SOURCE FOR DATA: [employer]ivity 1800 OPERATION MANUAL( AUTOMATED BLOOD COUNTS AND [...] DESIRABLE: <130 MG/DL <110 MG/DL BORDERLINE-HIGH RISK: 130- 159 MG/DL 110-129 MG/DL HIGH RISK: >160 MG/DL >130 MG/DL *CHILDREN AND ADOLESCENTS REPRESENTS INDIVIDUALA AGED 2-19 YEARS EXCLUSIVE. MXD% 16.5 % 0.1-24.0 [facility] ([facility] NORMAL RANGES Age WBC RBC HGB HCT [...] DESIRABLE: <130 MG/DL <110 MG/DL BORDERLINE-HIGH RISK: 130- 159 MG/DL 110-129 MG/DL HIGH RISK: >160 MG/DL >130 MG/DL *CHILDREN AND ADOLESCENTS REPRESENTS INDIVIDUALA AGED 2-19 YEARS EXCLUSIVE. Lym# 1.3 10E3/uL 0.6-4.1 [facility] ([facility] NORMAL RANGES Age WBC RBC HGB HCT [...] HCT IS 5% LESS SOURCE FOR DATA: [employer]ivity 1800 OPERATION MANUAL( AUTOMATED BLOOD COUNTS AND [...] DESIRABLE: <130 MG/DL <110 MG/DL BORDERLINE-HIGH RISK: 130- 159 MG/DL 110-129 MG/DL HIGH RISK: >160 MG/DL >130 MG/DL *CHILDREN AND ADOLESCENTS REPRESENTS INDIVIDUALA AGED 2-19 YEARS EXCLUSIVE. Neut# 2.0 % 2.0-7.8 [facility] ([facility] NORMAL RANGES Age WBC RBC HGB HCT [...] HCT IS 5% LESS SOURCE FOR DATA: [employer] 1800 OPERATION MANUAL( AUTOMATED BLOOD COUNTS AND [...] DESIRABLE: <130 MG/DL <110 MG/DL BORDERLINE-HIGH RISK: 130- 159 MG/DL 110-129 MG/DL HIGH RISK: >160 MG/DL >130 MG/DL *CHILDREN AND ADOLESCENTS REPRESENTS INDIVIDUALA AGED 2-19 YEARS EXCLUSIVE. MXD# 0.6 10E3/uL 0.0-1.8 [facility] ([facility] NORMAL RANGES Age WBC RBC HGB HCT [...] HCT IS 5% LESS SOURCE FOR DATA: [employer] DYN 1800 OPERATION MANUAL( AUTOMATED BLOOD COUNTS [...] DESIRABLE: <130 MG/DL <110 MG/DL BORDERLINE-HIGH RISK: 130- 159 MG/DL 110-129 MG/DL HIGH RISK: >160 MG/DL >130 MG/DL *CHILDREN AND ADOLESCENTS REPRESENTS INDIVIDUALA AGED 2-19 YEARS EXCLUSIVE. MPV 9.8 fL 9.0-13.0 [facility] ([facility] NORMAL RANGES Age WBC RBC HGB HCT [...] HCT IS 5% LESS SOURCE FOR DATA: [employer] 1800 OPERATION MANUAL( AUTOMATED BLOOD COUNTS AND [...] DESIRABLE: <130 MG/DL <110 MG/DL BORDERLINE-HIGH RISK: 130- 159 MG/DL 110-129 MG/DL HIGH RISK: >160 MG/DL >130 MG/DL *CHILDREN AND ADOLESCENTS REPRESENTS INDIVIDUALA AGED 2-19 YEARS EXCLUSIVE. ID Date Data Source [id number] 06/29/2020 10:21:00 AM EST [facility] ([facility] Name Value Range Interpretation Code Description Data Summer rce(s) Supporting Document(s) Color Urine Laboratory test result M ELLY ([facility] Appearance of Urine Laboratory test result [facility] ([facility] Specific [place] 1.025 1.00-1.03 [facility] ([facility] PH Urine 6.0 5.0-8.0 [facility] ([facility] Glucose Urine Laboratory test result [facility] ([facility] Ketones Laboratory test result MED[facility] ([facility] Bilirubin.total [Presence] in Urine by Test strip Laboratory peter t result Above high normal [facility] ([facility] ) Protein Urine Laboratory test result MED[facility] ([facility] Blood Urine Laboratory test result M ELLY ([facility] Nitrite Laboratory test result [facility] ([facility] Urobilinogen 1.0 EU/dl 0.2-1.0 [facility] ([facility] Leukocytes Laboratory test result ME DENT ([facility] ID Date Data Source [id number] 06/29/2020 10:01:00 AM EST MEDENT ([facility] Name Value Range Interpretation Code Description Data Summer rce(s) Supporting Document(s) Creatine kinase [Enzymatic activity/volume] in Serum or Plasma 78 U /L 26-192 [facility] ([facility] NORMAL RANGES Age WBC RBC HGB HCT [...] HCT IS 5% LESS SOURCE FOR DATA: [employer] 1800 OPERATION MANUAL( AUTOMATED BLOOD COUNTS AND [...] ADOLESCENTS REPRESENTS INDIVIDUALA AGED 2-19 YEARS EXCLUSIVE. ID Date Data Source [id number] 06/29/2020 10:01:00 AM EST [facility]MA ([facility] Name Value Range Interpretation Code Description Data Summer rce(s) Supporting Document(s) Chol 158 mg/dL 0-200 [facility] ([facility] NORMAL RANGES Age WBC RBC HGB HCT [...] HCT IS 5% LESS SOURCE FOR DATA: [employer] 1800 OPERATION MANUAL( AUTOMATED BLOOD COUNTS AND [...] ADOLESCENTS REPRESENTS INDIVIDUALA AGED 2-19 YEARS EXCLUSIVE. Trig 120 mg/dL 40-200 [facility] ([facility] NORMAL RANGES Age WBC RBC HGB HCT [...] HCT IS 5% LESS SOURCE FOR DATA: [employer] 1800 OPERATION MANUAL( AUTOMATED BLOOD COUNTS AND [...] ADOLESCENTS REPRESENTS INDIVIDUALA AGED 2-19 YEARS EXCLUSIVE. Cholesterol in HDL [Mass/volume] in Serum or Plasma 65 mg/dL 45-65 [facility] ([facility] NORMAL RANGES Age WBC RBC HGB HCT [...] HCT IS 5% LESS SOURCE FOR DATA: [employer] 1800 OPERATION MANUAL( AUTOMATED BLOOD COUNTS AND [...] DESIRABLE: <130 MG/DL <110 MG/DL BORDERLINE-HIGH RISK: 130- 159 MG/DL 110-129 MG/DL HIGH RISK: >160 MG/DL >130 MG/DL *CHILDREN AND ADOLESCENTS REPRESENTS INDIVIDUALA AGED 2-19 YEARS EXCLUSIVE. LDL_C 69 Calc 75-129 Below low normal [facility] ( [facility] NORMAL RANGES Age WBC RBC HGB HCT [...] DESIRABLE: <130 MG/DL <110 MG/DL BORDERLINE-HIGH RISK: 130- 159 MG/DL 110-129 MG/DL HIGH RISK: >160 MG/DL >130 MG/DL *CHILDREN AND ADOLESCENTS REPRESENTS INDIVIDUALA AGED 2-19 YEARS EXCLUSIVE. Cho/HDL Ratio 2.4 CALC SoFi ([facility] NORMAL RANGES Age WBC RBC HGB HCT [...] HCT IS 5% LESS SOURCE FOR DATA: [employer] 1800 OPERATION MANUAL( AUTOMATED BLOOD COUNTS AND [...] DESIRABLE: <130 MG/DL <110 MG/DL BORDERLINE-HIGH RISK: 130- 159 MG/DL 110-129 MG/DL HIGH RISK: >160 MG/DL >130 MG/DL *CHILDREN AND ADOLESCENTS REPRESENTS INDIVIDUALA AGED 2-19 YEARS EXCLUSIVE. ID Date Data Source [id number] 06/29/2020 10:01:00 AM EST PHILIPP ([facility] Name Value Range Interpretation Code Description Data Summer rce(s) Supporting Document(s) BUN 16 mg/dL 8-23 [facility] NORMAL RANGES Age WBC RBC HGB HCT [...] HCT IS 5% LESS SOURCE FOR DATA: [employer] 1800 OPERATION MANUAL( AUTOMATED BLOOD COUNTS AND [...] DESIRABLE: <130 MG/DL <110 MG/DL BORDERLINE-HIGH RISK: 130- 159 MG/DL 110-129 MG/DL HIGH RISK: >160 MG/DL >130 MG/DL *CHILDREN AND ADOLESCENTS REPRESENTS INDIVIDUALA AGED 2-19 YEARS EXCLUSIVE. Glu 92 mg/dL 70-110 [facility] ([facility] NORMAL RANGES Age WBC RBC HGB HCT [...] HCT IS 5% LESS SOURCE FOR DATA: [employer] 1800 OPERATION MANUAL( AUTOMATED BLOOD COUNTS AND [...] DESIRABLE: <130 MG/DL <110 MG/DL BORDERLINE-HIGH RISK: 130- 159 MG/DL 110-129 MG/DL HIGH RISK: >160 MG/DL >130 MG/DL *CHILDREN AND ADOLESCENTS REPRESENTS INDIVIDUALA AGED 2-19 YEARS EXCLUSIVE. Creat 0.6 mg/dL 0.5-1.0 [facility] ([facility] NORMAL RANGES Age WBC RBC HGB HCT [...] HCT IS 5% LESS SOURCE FOR DATA: [employer] 1800 OPERATION MANUAL( AUTOMATED BLOOD COUNTS AND [...] DESIRABLE: <130 MG/DL <110 MG/DL BORDERLINE-HIGH RISK: 130- 159 MG/DL 110-129 MG/DL HIGH RISK: >160 MG/DL >130 MG/DL *CHILDREN AND ADOLESCENTS REPRESENTS INDIVIDUALA AGED 2-19 YEARS EXCLUSIVE. BUN/Creatinine Ratio 26.[address] [facility] ([facility] NORMAL RANGES Age WBC RBC HGB HCT [...] HCT IS 5% LESS SOURCE FOR DATA: [employer] 1800 OPERATION MANUAL( AUTOMATED BLOOD COUNTS AND [...] DESIRABLE: <130 MG/DL <110 MG/DL BORDERLINE-HIGH RISK: 130- 159 MG/DL 110-129 MG/DL HIGH RISK: >160 MG/DL >130 MG/DL *CHILDREN AND ADOLESCENTS REPRESENTS INDIVIDUALA AGED 2-19 YEARS EXCLUSIVE. Na 139 mmol/L 136-145 [facility] ([facility] NORMAL RANGES Age WBC RBC HGB HCT [...] HCT IS 5% LESS SOURCE FOR DATA: [employer] 1800 OPERATION MANUAL( AUTOMATED BLOOD COUNTS AND [...] DESIRABLE: <130 MG/DL <110 MG/DL BORDERLINE-HIGH RISK: 130- 159 MG/DL 110-129 MG/DL HIGH RISK: >160 MG/DL >130 MG/DL *CHILDREN AND ADOLESCENTS REPRESENTS INDIVIDUALA AGED 2-19 YEARS EXCLUSIVE. K 4.7 mmol/L 3.5-5.1 [facility] ([facility] NORMAL RANGES Age WBC RBC HGB HCT [...] HCT IS 5% LESS SOURCE FOR DATA: [employer] 1800 OPERATION MANUAL( AUTOMATED BLOOD COUNTS AND [...] DESIRABLE: <130 MG/DL <110 MG/DL BORDERLINE-HIGH RISK: 130- 159 MG/DL 110-129 MG/DL HIGH RISK: >160 MG/DL >130 MG/DL *CHILDREN AND ADOLESCENTS REPRESENTS INDIVIDUALA AGED 2-19 YEARS EXCLUSIVE. CL 101.7 mmol/L 98.0-107.0 PHILIPP ([facility] NORMAL RANGES Age WBC RBC HGB HCT [...] HCT IS 5% LESS SOURCE FOR DATA: [employer]ivity 1800 OPERATION MANUAL( AUTOMATED BLOOD COUNTS AND [...] DESIRABLE: <130 MG/DL <110 MG/DL BORDERLINE-HIGH RISK: 130- 159 MG/DL 110-129 MG/DL HIGH RISK: >160 MG/DL >130 MG/DL *CHILDREN AND ADOLESCENTS REPRESENTS INDIVIDUALA AGED 2-19 YEARS EXCLUSIVE. Co2 24.6 mmol/L 22.0-29.0 So[facility] ([facility] NORMAL RANGES Age WBC RBC HGB HCT [...] HCT IS 5% LESS SOURCE FOR DATA: [employer] DYN 1800 OPERATION MANUAL( AUTOMATED BLOOD COUNTS [...] DESIRABLE: <130 MG/DL <110 MG/DL BORDERLINE-HIGH RISK: 130- 159 MG/DL 110-129 MG/DL HIGH RISK: >160 MG/DL >130 MG/DL *CHILDREN AND ADOLESCENTS REPRESENTS INDIVIDUALA AGED 2-19 YEARS EXCLUSIVE. TP 6.7 g/dL 6.6-8.7 [facility] ([facility] NORMAL RANGES Age WBC RBC HGB HCT [...] HCT IS 5% LESS SOURCE FOR DATA: [employer] 1800 OPERATION MANUAL( AUTOMATED BLOOD COUNTS AND [...] DESIRABLE: <130 MG/DL <110 MG/DL BORDERLINE-HIGH RISK: 130- 159 MG/DL 110-129 MG/DL HIGH RISK: >160 MG/DL >130 MG/DL *CHILDREN AND ADOLESCENTS REPRESENTS INDIVIDUALA AGED 2-19 YEARS EXCLUSIVE. CA 9.5 mg/dL 8.6-10.2 [facility] NORMAL RANGES Age WBC RBC HGB HCT [...] HCT IS 5% LESS SOURCE FOR DATA: [employer]ivity 1800 OPERATION MANUAL( AUTOMATED BLOOD COUNTS AND [...] DESIRABLE: <130 MG/DL <110 MG/DL BORDERLINE-HIGH RISK: 130- 159 MG/DL 110-129 MG/DL HIGH RISK: >160 MG/DL >130 MG/DL *CHILDREN AND ADOLESCENTS REPRESENTS INDIVIDUALA AGED 2-19 YEARS EXCLUSIVE. A/G Ratio 2.3 CALC [facility] ([facility] NORMAL RANGES Age WBC RBC HGB HCT [...] HCT IS 5% LESS SOURCE FOR DATA: [employer]ivity 1800 OPERATION MANUAL( AUTOMATED BLOOD COUNTS AND [...] DESIRABLE: <130 MG/DL <110 MG/DL BORDERLINE-HIGH RISK: 130- 159 MG/DL 110-129 MG/DL HIGH RISK: >160 MG/DL >130 MG/DL *CHILDREN AND ADOLESCENTS REPRESENTS INDIVIDUALA AGED 2-19 YEARS EXCLUSIVE. Alb 4.7 g/dL 3.4-4.8 [facility] ([facility] NORMAL RANGES Age WBC RBC HGB HCT [...] HCT IS 5% LESS SOURCE FOR DATA: [employer] 1800 OPERATION MANUAL( AUTOMATED BLOOD COUNTS AND [...] DESIRABLE: <130 MG/DL <110 MG/DL BORDERLINE-HIGH RISK: 130- 159 MG/DL 110-129 MG/DL HIGH RISK: >160 MG/DL >130 MG/DL *CHILDREN AND ADOLESCENTS REPRESENTS INDIVIDUALA AGED 2-19 YEARS EXCLUSIVE. Alp 83.6 U/L 35-129 [facility] ([facility] NORMAL RANGES Age WBC RBC HGB HCT [...] HCT IS 5% LESS SOURCE FOR DATA: [employer] 1800 OPERATION MANUAL( AUTOMATED BLOOD COUNTS AND [...] DESIRABLE: <130 MG/DL <110 MG/DL BORDERLINE-HIGH RISK: 130- 159 MG/DL 110-129 MG/DL HIGH RISK: >160 MG/DL >130 MG/DL *CHILDREN AND ADOLESCENTS REPRESENTS INDIVIDUALA AGED 2-19 YEARS EXCLUSIVE. Globulin 2.0 CALC [facility] ([facility] NORMAL RANGES Age WBC RBC HGB HCT [...] HCT IS 5% LESS SOURCE FOR DATA: [employer] 1800 OPERATION MANUAL( AUTOMATED BLOOD COUNTS AND [...] DESIRABLE: <130 MG/DL <110 MG/DL BORDERLINE-HIGH RISK: 130- 159 MG/DL 110-129 MG/DL HIGH RISK: >160 MG/DL >130 MG/DL *CHILDREN AND ADOLESCENTS REPRESENTS INDIVIDUALA AGED 2-19 YEARS EXCLUSIVE. Alt (SGPT) 24 U/L 0-41 [facility] ([facility] NORMAL RANGES Age WBC RBC HGB HCT [...] HCT IS 5% LESS SOURCE FOR DATA: [employer] 1800 OPERATION MANUAL( AUTOMATED BLOOD COUNTS AND [...] DESIRABLE: <130 MG/DL <110 MG/DL BORDERLINE-HIGH RISK: 130- 159 MG/DL 110-129 MG/DL HIGH RISK: >160 MG/DL >130 MG/DL *CHILDREN AND ADOLESCENTS REPRESENTS INDIVIDUALA AGED 2-19 YEARS EXCLUSIVE. Tbili 1.37 mg/dL 0.0-1.2 Above high normal [facility] ([facility] NORMAL RANGES Age WBC RBC HGB HCT [...] DESIRABLE: <130 MG/DL <110 MG/DL BORDERLINE-HIGH RISK: 130- 159 MG/DL 110-129 MG/DL HIGH RISK: >160 MG/DL >130 MG/DL *CHILDREN AND ADOLESCENTS REPRESENTS INDIVIDUALA AGED 2-19 YEARS EXCLUSIVE. Ast (Sgot) 24 U/L 0-40 [facility] ([facility] NORMAL RANGES Age WBC RBC HGB HCT [...] HCT IS 5% LESS SOURCE FOR DATA: [employer] 1800 OPERATION MANUAL( AUTOMATED BLOOD COUNTS AND [...] DESIRABLE: <130 MG/DL <110 MG/DL BORDERLINE-HIGH RISK: 130- 159 MG/DL 110-129 MG/DL HIGH RISK: >160 MG/DL >130 MG/DL *CHILDREN AND ADOLESCENTS REPRESENTS INDIVIDUALA AGED 2-19 YEARS EXCLUSIVE. Anion Gap 17 mmol/L [facility] ([facility] NORMAL RANGES Age WBC RBC HGB HCT [...] HCT IS 5% LESS SOURCE FOR DATA: [employer] 1800 OPERATION MANUAL( AUTOMATED BLOOD COUNTS AND [...] DESIRABLE: <130 MG/DL <110 MG/DL BORDERLINE-HIGH RISK: 130- 159 MG/DL 110-129 MG/DL HIGH RISK: >160 MG/DL >130 MG/DL *CHILDREN AND ADOLESCENTS REPRESENTS INDIVIDUALA AGED 2-19 YEARS EXCLUSIVE. Osmolality-Calculated 278.5 [facility] ([facility] NORMAL RANGES Age WBC RBC HGB HCT [...] HCT IS 5% LESS SOURCE FOR DATA: [employer] DYN 1800 OPERATION MANUAL( AUTOMATED BLOOD COUNTS [...] DESIRABLE: <130 MG/DL <110 MG/DL BORDERLINE-HIGH RISK: 130- 159 MG/DL 110-129 MG/DL HIGH RISK: >160 MG/DL >130 MG/DL *CHILDREN AND ADOLESCENTS REPRESENTS INDIVIDUALA AGED 2-19 YEARS EXCLUSIVE. eGFR 111 # [facility] ( [facility] CKD-EPI eGFR Non-Afr. [place] 96 # [facility] ([facility] CKD-EPI ID Date Data Source [id number] 06/29/2020 10:01:00 AM EST [facility] ([facility] Name Value Range Interpretation Code Description Data Summer rce(s) Supporting Document(s) WBC 5.1 10E3/uL 4.1-10.9 [facility] ([facility] NORMAL RANGES Age WBC RBC HGB HCT [...] HCT IS 5% LESS SOURCE FOR DATA: [employer] 1800 OPERATION MANUAL( AUTOMATED BLOOD COUNTS AND [...] DESIRABLE: <130 MG/DL <110 MG/DL BORDERLINE-HIGH RISK: 130- 159 MG/DL 110-129 MG/DL HIGH RISK: >160 MG/DL >130 MG/DL *CHILDREN AND ADOLESCENTS REPRESENTS INDIVIDUALA AGED 2-19 YEARS EXCLUSIVE. RBC 4.07 10E6/uL 4.20-6.30 Below low normal [facility] ([facility] [facility] NORMAL RANGES Age WBC RBC HGB HCT [...] HCT IS 5% LESS SOURCE FOR DATA: [employer] 1800 OPERATION MANUAL( AUTOMATED BLOOD COUNTS AND [...] DESIRABLE: <130 MG/DL <110 MG/DL BORDERLINE-HIGH RISK: 130- 159 MG/DL 110-129 MG/DL HIGH RISK: >160 MG/DL >130 MG/DL *CHILDREN AND ADOLESCENTS REPRESENTS INDIVIDUALA AGED 2-19 YEARS EXCLUSIVE. HGB 13.5 g/dL 12.0-18.0 [facility] ([facility] NORMAL RANGES Age WBC RBC HGB HCT [...] HCT IS 5% LESS SOURCE FOR DATA: [employer] 1800 OPERATION MANUAL( AUTOMATED BLOOD COUNTS AND [...] DESIRABLE: <130 MG/DL <110 MG/DL BORDERLINE-HIGH RISK: 130- 159 MG/DL 110-129 MG/DL HIGH RISK: >160 MG/DL >130 MG/DL *CHILDREN AND ADOLESCENTS REPRESENTS INDIVIDUALA AGED 2-19 YEARS EXCLUSIVE. HCT 40.9 % 37.0-51.0 [facility] ([facility] NORMAL RANGES Age WBC RBC HGB HCT [...] HCT IS 5% LESS SOURCE FOR DATA: [employer] 1800 OPERATION MANUAL( AUTOMATED BLOOD COUNTS AND [...] DESIRABLE: <130 MG/DL <110 MG/DL BORDERLINE-HIGH RISK: 130- 159 MG/DL 110-129 MG/DL HIGH RISK: >160 MG/DL >130 MG/DL *CHILDREN AND ADOLESCENTS REPRESENTS INDIVIDUALA AGED 2-19 YEARS EXCLUSIVE. MCV 100.5 fL 80.0-97.0 Above high normal [facility] ([facility] NORMAL RANGES Age WBC RBC HGB HCT [...] DESIRABLE: <130 MG/DL <110 MG/DL BORDERLINE-HIGH RISK: 130- 159 MG/DL 110-129 MG/DL HIGH RISK: >160 MG/DL >130 MG/DL *CHILDREN AND ADOLESCENTS REPRESENTS INDIVIDUALA AGED 2-19 YEARS EXCLUSIVE. MCHC 33.0 g/dL 31.0-36.0 [facility] ([facility] NORMAL RANGES Age WBC RBC HGB HCT [...] HCT IS 5% LESS SOURCE FOR DATA: [employer] 1800 OPERATION MANUAL( AUTOMATED BLOOD COUNTS AND [...] DESIRABLE: <130 MG/DL <110 MG/DL BORDERLINE-HIGH RISK: 130- 159 MG/DL 110-129 MG/DL HIGH RISK: >160 MG/DL >130 MG/DL *CHILDREN AND ADOLESCENTS REPRESENTS INDIVIDUALA AGED 2-19 YEARS EXCLUSIVE. MCH 33.2 pg 26.0-32.0 Above high normal [facility] ([facility] NORMAL RANGES Age WBC RBC HGB HCT [...] HCT IS 5% LESS SOURCE FOR DATA: [employer] 1800 OPERATION MANUAL( AUTOMATED BLOOD COUNTS AND [...] DESIRABLE: <130 MG/DL <110 MG/DL BORDERLINE-HIGH RISK: 130- 159 MG/DL 110-129 MG/DL HIGH RISK: >160 MG/DL >130 MG/DL *CHILDREN AND ADOLESCENTS REPRESENTS INDIVIDUALA AGED 2-19 YEARS EXCLUSIVE. RDW-CV 12.3 % 11.5-14.5 [facility] ([facility] NORMAL RANGES Age WBC RBC HGB HCT [...] HCT IS 5% LESS SOURCE FOR DATA: [employer] DYN 1800 OPERATION MANUAL( AUTOMATED BLOOD COUNTS [...] DESIRABLE: <130 MG/DL <110 MG/DL BORDERLINE-HIGH RISK: 130- 159 MG/DL 110-129 MG/DL HIGH RISK: >160 MG/DL >130 MG/DL *CHILDREN AND ADOLESCENTS REPRESENTS INDIVIDUALA AGED 2-19 YEARS EXCLUSIVE. PLT 203 10E3/uL 140-440 [facility] ([facility] NORMAL RANGES Age WBC RBC HGB HCT [...] HCT IS 5% LESS SOURCE FOR DATA: [employer] 1800 OPERATION MANUAL( AUTOMATED BLOOD COUNTS AND [...] DESIRABLE: <130 MG/DL <110 MG/DL BORDERLINE-HIGH RISK: 130- 159 MG/DL 110-129 MG/DL HIGH RISK: >160 MG/DL >130 MG/DL *CHILDREN AND ADOLESCENTS REPRESENTS INDIVIDUALA AGED 2-19 YEARS EXCLUSIVE. Lym% 30.0 % 10.0-58.5 [facility] ([facility] NORMAL RANGES Age WBC RBC HGB HCT [...] HCT IS 5% LESS SOURCE FOR DATA: [employer] 1800 OPERATION MANUAL( AUTOMATED BLOOD COUNTS AND [...] DESIRABLE: <130 MG/DL <110 MG/DL BORDERLINE-HIGH RISK: 130- 159 MG/DL 110-129 MG/DL HIGH RISK: >160 MG/DL >130 MG/DL *CHILDREN AND ADOLESCENTS REPRESENTS INDIVIDUALA AGED 2-19 YEARS EXCLUSIVE. Neut% 55.8 % 37.0-92.0 [facility] ([facility] NORMAL RANGES Age WBC RBC HGB HCT [...] HCT IS 5% LESS SOURCE FOR DATA: [employer] 1800 OPERATION MANUAL( AUTOMATED BLOOD COUNTS AND [...] DESIRABLE: <130 MG/DL <110 MG/DL BORDERLINE-HIGH RISK: 130- 159 MG/DL 110-129 MG/DL HIGH RISK: >160 MG/DL >130 MG/DL *CHILDREN AND ADOLESCENTS REPRESENTS INDIVIDUALA AGED 2-19 YEARS EXCLUSIVE. MXD% 14.2 % 0.1-24.0 [facility] ([facility] NORMAL RANGES Age WBC RBC HGB HCT [...] HCT IS 5% LESS SOURCE FOR DATA: [employer] 1800 OPERATION MANUAL( AUTOMATED BLOOD COUNTS AND [...] DESIRABLE: <130 MG/DL <110 MG/DL BORDERLINE-HIGH RISK: 130- 159 MG/DL 110-129 MG/DL HIGH RISK: >160 MG/DL >130 MG/DL *CHILDREN AND ADOLESCENTS REPRESENTS INDIVIDUALA AGED 2-19 YEARS EXCLUSIVE. Neut# 2.9 % 2.0-7.8 [facility] ([facility] NORMAL RANGES Age WBC RBC HGB HCT [...] HCT IS 5% LESS SOURCE FOR DATA: [employer] 1800 OPERATION MANUAL( AUTOMATED BLOOD COUNTS AND [...] DESIRABLE: <130 MG/DL <110 MG/DL BORDERLINE-HIGH RISK: 130- 159 MG/DL 110-129 MG/DL HIGH RISK: >160 MG/DL >130 MG/DL *CHILDREN AND ADOLESCENTS REPRESENTS INDIVIDUALA AGED 2-19 YEARS EXCLUSIVE. Lym# 1.5 10E3/uL 0.6-4.1 [facility] ([facility] NORMAL RANGES Age WBC RBC HGB HCT [...] HCT IS 5% LESS SOURCE FOR DATA: [employer] 1800 OPERATION MANUAL( AUTOMATED BLOOD COUNTS AND [...] DESIRABLE: <130 MG/DL <110 MG/DL BORDERLINE-HIGH RISK: 130- 159 MG/DL 110-129 MG/DL HIGH RISK: >160 MG/DL >130 MG/DL *CHILDREN AND ADOLESCENTS REPRESENTS INDIVIDUALA AGED 2-19 YEARS EXCLUSIVE. MXD# 0.7 10E3/uL 0.0-1.8 [facility] ([facility] NORMAL RANGES Age WBC RBC HGB HCT [...] HCT IS 5% LESS SOURCE FOR DATA: [employer] 1800 OPERATION MANUAL( AUTOMATED BLOOD COUNTS AND [...] DESIRABLE: <130 MG/DL <110 MG/DL BORDERLINE-HIGH RISK: 130- 159 MG/DL 110-129 MG/DL HIGH RISK: >160 MG/DL >130 MG/DL *CHILDREN AND ADOLESCENTS REPRESENTS INDIVIDUALA AGED 2-19 YEARS EXCLUSIVE. MPV 10.4 fL 9.0-13.0 [facility] ([facility] NORMAL RANGES Age WBC RBC HGB HCT [...] HCT IS 5% LESS SOURCE FOR DATA: [employer] 1800 OPERATION MANUAL( AUTOMATED BLOOD COUNTS AND [...] DESIRABLE: <130 MG/DL <110 MG/DL BORDERLINE-HIGH RISK: 130- 159 MG/DL 110-129 MG/DL HIGH RISK: >160 MG/DL >130 MG/DL *CHILDREN AND ADOLESCENTS REPRESENTS INDIVIDUALA AGED 2-19 YEARS EXCLUSIVE. ID Date Data Source [id number] 03/30/2020 10:24:00 AM EDT [facility] ([facility] Name Value Range Interpretation Code Description Data Summer rce(s) Supporting Document(s) Appearance of Urine Laboratory test result [facility] ([facility] Color Urine Laboratory test result M [facility] ([facility] Specific [place] 1.025 1.00-1.03 [facility] ([facility] Glucose Urine Laboratory test result [facility] ([facility] PH Urine 5.0 5.0-8.0 [facility] ([facility] Bilirubin.total [Presence] in Urine by Test strip Laboratory test res ult [facility] ([facility] Blood Urine Laboratory test result M [facility] ([facility] Ketones Laboratory test result [facility] ([facility] Protein Urine Laboratory test result [facility] ([facility] Urobilinogen 0.2 EU/dl 0.2-1.0 [facility] ([facility] Nitrite Laboratory test result [facility] ([facility] Leukocytes Laboratory test result [facility] ([facility] ID Date Data Source [id number] 03/30/2020 09:25:00 AM EDT [facility] ([facility] Name Value Range Interpretation Code Description Data Summer rce(s) Supporting Document(s) Creatine kinase [Enzymatic activity/volume] in Serum or Plasma 54 U /L 26-192 [facility] ([facility] NORMAL RANGES Age WBC RBC HGB HCT [...] HCT IS 5% LESS SOURCE FOR DATA: [employer] 1800 OPERATION MANUAL( AUTOMATED BLOOD COUNTS AND [...] ADOLESCENTS REPRESENTS INDIVIDUALA AGED 2-19 YEARS EXCLUSIVE. ID Date Data Source [id number] 03/30/2020 09:25:00 AM EDT [facility] ([facility] Name Value Range Interpretation Code Description Data Summer rce(s) Supporting Document(s) Chol 152 mg/dL 0-200 [facility] ([facility] NORMAL RANGES Age WBC RBC HGB HCT [...] HCT IS 5% LESS SOURCE FOR DATA: [employer] 1800 OPERATION MANUAL( AUTOMATED BLOOD COUNTS AND [...] ADOLESCENTS REPRESENTS INDIVIDUALA AGED 2-19 YEARS EXCLUSIVE. Trig 127 mg/dL 40-200 [facility] ([facility] NORMAL RANGES Age WBC RBC HGB HCT [...] HCT IS 5% LESS SOURCE FOR DATA: [employer] 1800 OPERATION MANUAL( AUTOMATED BLOOD COUNTS AND [...] ADOLESCENTS REPRESENTS INDIVIDUALA AGED 2-19 YEARS EXCLUSIVE. LDL_C 61 Calc 75-129 Below low normal [facility] ( [facility] NORMAL RANGES Age WBC RBC HGB HCT [...] HCT IS 5% LESS SOURCE FOR DATA: [employer] 1800 OPERATION MANUAL( AUTOMATED BLOOD COUNTS AND [...] ADOLESCENTS REPRESENTS INDIVIDUALA AGED 2-19 YEARS EXCLUSIVE. Cholesterol in HDL [Mass/volume] in Serum or Plasma 66 mg/dL 45-65 Above high normal [facility] ([facility] NORMAL RANGES Age WBC RBC HGB HCT [...] HCT IS 5% LESS SOURCE FOR DATA: [employer] 1800 OPERATION MANUAL( AUTOMATED BLOOD COUNTS AND [...] DESIRABLE: <130 MG/DL <110 MG/DL BORDERLINE-HIGH RISK: 130- 159 MG/DL 110-129 MG/DL HIGH RISK: >160 MG/DL >130 MG/DL *CHILDREN AND ADOLESCENTS REPRESENTS INDIVIDUALA AGED 2-19 YEARS EXCLUSIVE. Cho/HDL Ratio 2.3 CALC [facility] ([facility] NORMAL RANGES Age WBC RBC HGB HCT [...] HCT IS 5% LESS SOURCE FOR DATA: [employer] 1800 OPERATION MANUAL( AUTOMATED BLOOD COUNTS AND [...] DESIRABLE: <130 MG/DL <110 MG/DL BORDERLINE-HIGH RISK: 130- 159 MG/DL 110-129 MG/DL HIGH RISK: >160 MG/DL >130 MG/DL *CHILDREN AND ADOLESCENTS REPRESENTS INDIVIDUALA AGED 2-19 YEARS EXCLUSIVE. ID Date Data Source [id number] 03/30/2020 09:25:00 AM EDT [facility] ([facility] Name Value Range Interpretation Code Description Data Summer rce(s) Supporting Document(s) Glu 92 mg/dL 70-110 [facility] ([facility] NORMAL RANGES Age WBC RBC HGB HCT [...] HCT IS 5% LESS SOURCE FOR DATA: [employer] 1800 OPERATION MANUAL( AUTOMATED BLOOD COUNTS AND [...] DESIRABLE: <130 MG/DL <110 MG/DL BORDERLINE-HIGH RISK: 130- 159 MG/DL 110-129 MG/DL HIGH RISK: >160 MG/DL >130 MG/DL *CHILDREN AND ADOLESCENTS REPRESENTS INDIVIDUALA AGED 2-19 YEARS EXCLUSIVE. BUN 14 mg/dL 8-23 [facility] ([facility] NORMAL RANGES Age WBC RBC HGB HCT [...] HCT IS 5% LESS SOURCE FOR DATA: [employer] 1800 OPERATION MANUAL( AUTOMATED BLOOD COUNTS AND [...] DESIRABLE: <130 MG/DL <110 MG/DL BORDERLINE-HIGH RISK: 130- 159 MG/DL 110-129 MG/DL HIGH RISK: >160 MG/DL >130 MG/DL *CHILDREN AND ADOLESCENTS REPRESENTS INDIVIDUALA AGED 2-19 YEARS EXCLUSIVE. BUN/Creatinine Ratio 23.4 CALC [facility] ([facility] NORMAL RANGES Age WBC RBC HGB HCT [...] HCT IS 5% LESS SOURCE FOR DATA: [employer] 1800 OPERATION MANUAL( AUTOMATED BLOOD COUNTS AND [...] DESIRABLE: <130 MG/DL <110 MG/DL BORDERLINE-HIGH RISK: 130- 159 MG/DL 110-129 MG/DL HIGH RISK: >160 MG/DL >130 MG/DL *CHILDREN AND ADOLESCENTS REPRESENTS INDIVIDUALA AGED 2-19 YEARS EXCLUSIVE. Creat 0.6 mg/dL 0.5-1.0 [facility] ([facility] NORMAL RANGES Age WBC RBC HGB HCT [...] HCT IS 5% LESS SOURCE FOR DATA: [employer] 1800 OPERATION MANUAL( AUTOMATED BLOOD COUNTS AND [...] DESIRABLE: <130 MG/DL <110 MG/DL BORDERLINE-HIGH RISK: 130- 159 MG/DL 110-129 MG/DL HIGH RISK: >160 MG/DL >130 MG/DL *CHILDREN AND ADOLESCENTS REPRESENTS INDIVIDUALA AGED 2-19 YEARS EXCLUSIVE. K 4.8 mmol/L 3.5-5.1 [facility] ([facility] NORMAL RANGES Age WBC RBC HGB HCT [...] HCT IS 5% LESS SOURCE FOR DATA: [employer] 1800 OPERATION MANUAL( AUTOMATED BLOOD COUNTS AND [...] DESIRABLE: <130 MG/DL <110 MG/DL BORDERLINE-HIGH RISK: 130- 159 MG/DL 110-129 MG/DL HIGH RISK: >160 MG/DL >130 MG/DL *CHILDREN AND ADOLESCENTS REPRESENTS INDIVIDUALA AGED 2-19 YEARS EXCLUSIVE. Na 138 mmol/L 136-145 [facility] ([facility] NORMAL RANGES Age WBC RBC HGB HCT [...] DESIRABLE: <130 MG/DL <110 MG/DL BORDERLINE-HIGH RISK: 130- 159 MG/DL 110-129 MG/DL HIGH RISK: >160 MG/DL >130 MG/DL *CHILDREN AND ADOLESCENTS REPRESENTS INDIVIDUALA AGED 2-19 YEARS EXCLUSIVE. Co2 24.9 mmol/L 22.0-29.0 [facility] ([facility] NORMAL RANGES Age WBC RBC HGB HCT [...] HCT IS 5% LESS SOURCE FOR DATA: [employer] 1800 OPERATION MANUAL( AUTOMATED BLOOD COUNTS AND [...] DESIRABLE: <130 MG/DL <110 MG/DL BORDERLINE-HIGH RISK: 130- 159 MG/DL 110-129 MG/DL HIGH RISK: >160 MG/DL >130 MG/DL *CHILDREN AND ADOLESCENTS REPRESENTS INDIVIDUALA AGED 2-19 YEARS EXCLUSIVE. CL 103.1 mmol/L 98.0-107.0 [facility] ([facility] NORMAL RANGES Age WBC RBC HGB HCT [...] HCT IS 5% LESS SOURCE FOR DATA: [employer] 1800 OPERATION MANUAL( AUTOMATED BLOOD COUNTS AND [...] DESIRABLE: <130 MG/DL <110 MG/DL BORDERLINE-HIGH RISK: 130- 159 MG/DL 110-129 MG/DL HIGH RISK: >160 MG/DL >130 MG/DL *CHILDREN AND ADOLESCENTS REPRESENTS INDIVIDUALA AGED 2-19 YEARS EXCLUSIVE. CA 9.5 mg/dL 8.6-10.2 [facility] ([facility] NORMAL RANGES Age WBC RBC HGB HCT [...] HCT IS 5% LESS SOURCE FOR DATA: [employer] DYN 1800 OPERATION MANUAL( AUTOMATED BLOOD COUNTS [...] DESIRABLE: <130 MG/DL <110 MG/DL BORDERLINE-HIGH RISK: 130- 159 MG/DL 110-129 MG/DL HIGH RISK: >160 MG/DL >130 MG/DL *CHILDREN AND ADOLESCENTS REPRESENTS INDIVIDUALA AGED 2-19 YEARS EXCLUSIVE. TP 6.5 g/dL 6.6-8.7 Below low normal [facility] ( [facility] NORMAL RANGES Age WBC RBC HGB HCT [...] HCT IS 5% LESS SOURCE FOR DATA: [employer] 1800 OPERATION MANUAL( AUTOMATED BLOOD COUNTS AND [...] DESIRABLE: <130 MG/DL <110 MG/DL BORDERLINE-HIGH RISK: 130- 159 MG/DL 110-129 MG/DL HIGH RISK: >160 MG/DL >130 MG/DL *CHILDREN AND ADOLESCENTS REPRESENTS INDIVIDUALA AGED 2-19 YEARS EXCLUSIVE. Alb 4.4 g/dL 3.4-4.8 [facility] ([facility] NORMAL RANGES Age WBC RBC HGB HCT [...] HCT IS 5% LESS SOURCE FOR DATA: [employer] 1800 OPERATION MANUAL( AUTOMATED BLOOD COUNTS AND [...] DESIRABLE: <130 MG/DL <110 MG/DL BORDERLINE-HIGH RISK: 130- 159 MG/DL 110-129 MG/DL HIGH RISK: >160 MG/DL >130 MG/DL *CHILDREN AND ADOLESCENTS REPRESENTS INDIVIDUALA AGED 2-19 YEARS EXCLUSIVE. A/G Ratio 2.1 CALC [facility] ([facility] NORMAL RANGES Age WBC RBC HGB HCT [...] HCT IS 5% LESS SOURCE FOR DATA: [employer] DYN 1800 OPERATION MANUAL( AUTOMATED BLOOD COUNTS [...] DESIRABLE: <130 MG/DL <110 MG/DL BORDERLINE-HIGH RISK: 130- 159 MG/DL 110-129 MG/DL HIGH RISK: >160 MG/DL >130 MG/DL *CHILDREN AND ADOLESCENTS REPRESENTS INDIVIDUALA AGED 2-19 YEARS EXCLUSIVE. Alp 85.3 U/L 35-129 [facility] ([facility] NORMAL RANGES Age WBC RBC HGB HCT [...] HCT IS 5% LESS SOURCE FOR DATA: [employer] 1800 OPERATION MANUAL( AUTOMATED BLOOD COUNTS AND [...] DESIRABLE: <130 MG/DL <110 MG/DL BORDERLINE-HIGH RISK: 130- 159 MG/DL 110-129 MG/DL HIGH RISK: >160 MG/DL >130 MG/DL *CHILDREN AND ADOLESCENTS REPRESENTS INDIVIDUALA AGED 2-19 YEARS EXCLUSIVE. Globulin 2.1 CALC [facility] ([facility] NORMAL RANGES Age WBC RBC HGB HCT [...] HCT IS 5% LESS SOURCE FOR DATA: [employer] 1800 OPERATION MANUAL( AUTOMATED BLOOD COUNTS AND [...] DESIRABLE: <130 MG/DL <110 MG/DL BORDERLINE-HIGH RISK: 130- 159 MG/DL 110-129 MG/DL HIGH RISK: >160 MG/DL >130 MG/DL *CHILDREN AND ADOLESCENTS REPRESENTS INDIVIDUALA AGED 2-19 YEARS EXCLUSIVE. Alt (SGPT) 30 U/L 0-41 [facility] ([facility] NORMAL RANGES Age WBC RBC HGB HCT [...] HCT IS 5% LESS SOURCE FOR DATA: [employer] DYN 1800 OPERATION MANUAL( AUTOMATED BLOOD COUNTS [...] DESIRABLE: <130 MG/DL <110 MG/DL BORDERLINE-HIGH RISK: 130- 159 MG/DL 110-129 MG/DL HIGH RISK: >160 MG/DL >130 MG/DL *CHILDREN AND ADOLESCENTS REPRESENTS INDIVIDUALA AGED 2-19 YEARS EXCLUSIVE. Ast (Sgot) 27 U/L 0-40 [facility] ([facility] NORMAL RANGES Age WBC RBC HGB HCT [...] HCT IS 5% LESS SOURCE FOR DATA: [employer] 1800 OPERATION MANUAL( AUTOMATED BLOOD COUNTS AND [...] DESIRABLE: <130 MG/DL <110 MG/DL BORDERLINE-HIGH RISK: 130- 159 MG/DL 110-129 MG/DL HIGH RISK: >160 MG/DL >130 MG/DL *CHILDREN AND ADOLESCENTS REPRESENTS INDIVIDUALA AGED 2-19 YEARS EXCLUSIVE. Anion Gap 14 mmol/L [facility] NORMAL RANGES Age WBC RBC HGB HCT [...] HCT IS 5% LESS SOURCE FOR DATA: [employer] 1800 OPERATION MANUAL( AUTOMATED BLOOD COUNTS AND [...] DESIRABLE: <130 MG/DL <110 MG/DL BORDERLINE-HIGH RISK: 130- 159 MG/DL 110-129 MG/DL HIGH RISK: >160 MG/DL >130 MG/DL *CHILDREN AND ADOLESCENTS REPRESENTS INDIVIDUALA AGED 2-19 YEARS EXCLUSIVE. Osmolality-Calculated 275.3 CALC [facility] ([facility] NORMAL RANGES Age WBC RBC HGB HCT [...] HCT IS 5% LESS SOURCE FOR DATA: [employer] 1800 OPERATION MANUAL( AUTOMATED BLOOD COUNTS AND [...] DESIRABLE: <130 MG/DL <110 MG/DL BORDERLINE-HIGH RISK: 130- 159 MG/DL 110-129 MG/DL HIGH RISK: >160 MG/DL >130 MG/DL *CHILDREN AND ADOLESCENTS REPRESENTS INDIVIDUALA AGED 2-19 YEARS EXCLUSIVE. Tbili 1.28 mg/dL 0.0-1.2 Above high normal [facility] ([facility] NORMAL RANGES Age WBC RBC HGB HCT [...] HCT IS 5% LESS SOURCE FOR DATA: [employer] 1800 OPERATION MANUAL( AUTOMATED BLOOD COUNTS AND [...] DESIRABLE: <130 MG/DL <110 MG/DL BORDERLINE-HIGH RISK: 130- 159 MG/DL 110-129 MG/DL HIGH RISK: >160 MG/DL >130 MG/DL *CHILDREN AND ADOLESCENTS REPRESENTS INDIVIDUALA AGED 2-19 YEARS EXCLUSIVE. eGFR 111 # [facility] ( [facility] CKD-EPI eGFR Non-Afr. [place] 96 # [facility] ([facility] CKD-EPI ID Date Data Source [id number] 03/30/2020 09:25:00 AM EDT [facility] ([facility] Name Value Range Interpretation Code Description Data Summer rce(s) Supporting Document(s) WBC 4.4 10E3/uL 4.1-10.9 [facility] ([facility] NORMAL RANGES Age WBC RBC HGB HCT [...] HCT IS 5% LESS SOURCE FOR DATA: [employer] DYN 1800 OPERATION MANUAL( AUTOMATED BLOOD COUNTS [...] DESIRABLE: <130 MG/DL <110 MG/DL BORDERLINE-HIGH RISK: 130- 159 MG/DL 110-129 MG/DL HIGH RISK: >160 MG/DL >130 MG/DL *CHILDREN AND ADOLESCENTS REPRESENTS INDIVIDUALA AGED 2-19 YEARS EXCLUSIVE. HGB 13.5 g/dL 12.0-18.0 [facility] ([facility] NORMAL RANGES Age WBC RBC HGB HCT [...] HCT IS 5% LESS SOURCE FOR DATA: [employer] 1800 OPERATION MANUAL( AUTOMATED BLOOD COUNTS AND [...] DESIRABLE: <130 MG/DL <110 MG/DL BORDERLINE-HIGH RISK: 130- 159 MG/DL 110-129 MG/DL HIGH RISK: >160 MG/DL >130 MG/DL *CHILDREN AND ADOLESCENTS REPRESENTS INDIVIDUALA AGED 2-19 YEARS EXCLUSIVE. RBC 3.84 10E6/uL 4.20-6.30 Below low normal [facility] ([facility] NORMAL RANGES Age WBC RBC HGB HCT [...] HCT IS 5% LESS SOURCE FOR DATA: [employer] 1800 OPERATION MANUAL( AUTOMATED BLOOD COUNTS AND [...] DESIRABLE: <130 MG/DL <110 MG/DL BORDERLINE-HIGH RISK: 130- 159 MG/DL 110-129 MG/DL HIGH RISK: >160 MG/DL >130 MG/DL *CHILDREN AND ADOLESCENTS REPRESENTS INDIVIDUALA AGED 2-19 YEARS EXCLUSIVE. HCT 38.7 % 37.0-51.0 [facility] ([facility] NORMAL RANGES Age WBC RBC HGB HCT [...] HCT IS 5% LESS SOURCE FOR DATA: [employer] 1800 OPERATION MANUAL( AUTOMATED BLOOD COUNTS AND [...] DESIRABLE: <130 MG/DL <110 MG/DL BORDERLINE-HIGH RISK: 130- 159 MG/DL 110-129 MG/DL HIGH RISK: >160 MG/DL >130 MG/DL *CHILDREN AND ADOLESCENTS REPRESENTS INDIVIDUALA AGED 2-19 YEARS EXCLUSIVE. MCV 100.8 fL 80.0-97.0 Above high normal [facility] ([facility] NORMAL RANGES Age WBC RBC HGB HCT [...] HCT IS 5% LESS SOURCE FOR DATA: [employer] 1800 OPERATION MANUAL( AUTOMATED BLOOD COUNTS AND [...] DESIRABLE: <130 MG/DL <110 MG/DL BORDERLINE-HIGH RISK: 130- 159 MG/DL 110-129 MG/DL HIGH RISK: >160 MG/DL >130 MG/DL *CHILDREN AND ADOLESCENTS REPRESENTS INDIVIDUALA AGED 2-19 YEARS EXCLUSIVE. MCH 35.2 pg 26.0-32.0 Above high normal [facility] ([facility] NORMAL RANGES Age WBC RBC HGB HCT [...] HCT IS 5% LESS SOURCE FOR DATA: [employer] 1800 OPERATION MANUAL( AUTOMATED BLOOD COUNTS AND [...] DESIRABLE: <130 MG/DL <110 MG/DL BORDERLINE-HIGH RISK: 130- 159 MG/DL 110-129 MG/DL HIGH RISK: >160 MG/DL >130 MG/DL *CHILDREN AND ADOLESCENTS REPRESENTS INDIVIDUALA AGED 2-19 YEARS EXCLUSIVE. MCHC 34.9 g/dL 31.0-36.0 [facility] ([facility] NORMAL RANGES Age WBC RBC HGB HCT [...] HCT IS 5% LESS SOURCE FOR DATA: [employer] 1800 OPERATION MANUAL( AUTOMATED BLOOD COUNTS AND [...] DESIRABLE: <130 MG/DL <110 MG/DL BORDERLINE-HIGH RISK: 130- 159 MG/DL 110-129 MG/DL HIGH RISK: >160 MG/DL >130 MG/DL *CHILDREN AND ADOLESCENTS REPRESENTS INDIVIDUALA AGED 2-19 YEARS EXCLUSIVE. PLT 203 10E3/uL 140-440 [facility] ([facility] NORMAL RANGES Age WBC RBC HGB HCT [...] HCT IS 5% LESS SOURCE FOR DATA: [employer] 1800 OPERATION MANUAL( AUTOMATED BLOOD COUNTS AND [...] DESIRABLE: <130 MG/DL <110 MG/DL BORDERLINE-HIGH RISK: 130- 159 MG/DL 110-129 MG/DL HIGH RISK: >160 MG/DL >130 MG/DL *CHILDREN AND ADOLESCENTS REPRESENTS INDIVIDUALA AGED 2-19 YEARS EXCLUSIVE. RDW-CV 12.4 % 11.5-14.5 [facility] NORMAL RANGES Age WBC RBC HGB HCT [...] HCT IS 5% LESS SOURCE FOR DATA: [employer] 1800 OPERATION MANUAL( AUTOMATED BLOOD COUNTS AND [...] DESIRABLE: <130 MG/DL <110 MG/DL BORDERLINE-HIGH RISK: 130- 159 MG/DL 110-129 MG/DL HIGH RISK: >160 MG/DL >130 MG/DL *CHILDREN AND ADOLESCENTS REPRESENTS INDIVIDUALA AGED 2-19 YEARS EXCLUSIVE. MXD% 14.7 % 0.1-24.0 [facility] ([facility] NORMAL RANGES Age WBC RBC HGB HCT [...] HCT IS 5% LESS SOURCE FOR DATA: [employer] 1800 OPERATION MANUAL( AUTOMATED BLOOD COUNTS AND [...] DESIRABLE: <130 MG/DL <110 MG/DL BORDERLINE-HIGH RISK: 130- 159 MG/DL 110-129 MG/DL HIGH RISK: >160 MG/DL >130 MG/DL *CHILDREN AND ADOLESCENTS REPRESENTS INDIVIDUALA AGED 2-19 YEARS EXCLUSIVE. Neut% 52.1 % 37.0-92.0 [facility] ([facility] NORMAL RANGES Age WBC RBC HGB HCT [...] HCT IS 5% LESS SOURCE FOR DATA: [employer] 1800 OPERATION MANUAL( AUTOMATED BLOOD COUNTS AND [...] DESIRABLE: <130 MG/DL <110 MG/DL BORDERLINE-HIGH RISK: 130- 159 MG/DL 110-129 MG/DL HIGH RISK: >160 MG/DL >130 MG/DL *CHILDREN AND ADOLESCENTS REPRESENTS INDIVIDUALA AGED 2-19 YEARS EXCLUSIVE. Lym% 33.2 % 10.0-58.5 [facility] ([facility] NORMAL RANGES Age WBC RBC HGB HCT [...] HCT IS 5% LESS SOURCE FOR DATA: [employer] 1800 OPERATION MANUAL( AUTOMATED BLOOD COUNTS AND [...] DESIRABLE: <130 MG/DL <110 MG/DL BORDERLINE-HIGH RISK: 130- 159 MG/DL 110-129 MG/DL HIGH RISK: >160 MG/DL >130 MG/DL *CHILDREN AND ADOLESCENTS REPRESENTS INDIVIDUALA AGED 2-19 YEARS EXCLUSIVE. Neut# 2.3 % 2.0-7.8 [facility] ([facility] NORMAL RANGES Age WBC RBC HGB HCT [...] HCT IS 5% LESS SOURCE FOR DATA: [employer] 1800 OPERATION MANUAL( AUTOMATED BLOOD COUNTS AND [...] DESIRABLE: <130 MG/DL <110 MG/DL BORDERLINE-HIGH RISK: 130- 159 MG/DL 110-129 MG/DL HIGH RISK: >160 MG/DL >130 MG/DL *CHILDREN AND ADOLESCENTS REPRESENTS INDIVIDUALA AGED 2-19 YEARS EXCLUSIVE. Lym# 1.5 10E3/uL 0.6-4.1 [facility] ([facility] NORMAL RANGES Age WBC RBC HGB HCT [...] HCT IS 5% LESS SOURCE FOR DATA: [employer] 1800 OPERATION MANUAL( AUTOMATED BLOOD COUNTS AND [...] DESIRABLE: <130 MG/DL <110 MG/DL BORDERLINE-HIGH RISK: 130- 159 MG/DL 110-129 MG/DL HIGH RISK: >160 MG/DL >130 MG/DL *CHILDREN AND ADOLESCENTS REPRESENTS INDIVIDUALA AGED 2-19 YEARS EXCLUSIVE. MXD# 0.6 10E3/uL 0.0-1.8 [facility] ([facility] NORMAL RANGES Age WBC RBC HGB HCT [...] DESIRABLE: <130 MG/DL <110 MG/DL BORDERLINE-HIGH RISK: 130- 159 MG/DL 110-129 MG/DL HIGH RISK: >160 MG/DL >130 MG/DL *CHILDREN AND ADOLESCENTS REPRESENTS INDIVIDUALA AGED 2-19 YEARS EXCLUSIVE. MPV 9.4 fL 9.0-13.0 [facility] ([facility] NORMAL RANGES Age WBC RBC HGB HCT [...] HCT IS 5% LESS SOURCE FOR DATA: [employer] 1800 OPERATION MANUAL( AUTOMATED BLOOD COUNTS AND [...] DESIRABLE: <130 MG/DL <110 MG/DL BORDERLINE-HIGH RISK: 130- 159 MG/DL 110-129 MG/DL HIGH RISK: >160 MG/DL >130 MG/DL *CHILDREN AND ADOLESCENTS REPRESENTS INDIVIDUALA AGED 2-19 YEARS EXCLUSIVE. Procedure Social History Code Duration Value Status Description Data Source(s ) Smoking 01/29/2021 12:00:00 AM EDT Non Smoker completed Non Smoke r [facility] ([facility], ) Smoking 01/25/2021 12:00:00 AM EDT Patient has never smoked co mpleted Patient has never smoked [facility] ([facility] ) Vital Signs ID Date Data Source UNK Name Value Range Interpretation Code Description Data Source(s) Systolic blood pressure 116 mm[Hg] 116 mm[Hg] M EDENT ([facility] Diastolic blood pressure 84 mm[Hg] 84 mm[Hg] [facility] ([facility] Respiratory rate 16 /min 16 /min [facility] ( [facility] Slater body weight 125 [lb_av] 125 [lb_av] MEDEN T ([facility] Body mass index (BMI) [Ratio] 24.6 kg/m2 24.6 k g/m2 [facility] ([facility] Body height 65 [in_i] 65 [in_i] MED[facility] ([facility] 5'5" Body weight 148.00 [lb_av] 148.00 [lb_av] MEDEN T ([facility] Oxygen saturation in Arterial blood by Pulse oximetry 98 % 98 % [facility] ([facility] Body temperature 98.3 [degF] 98.3 [degF] [facility] ([facility] Heart rate 84 /min 84 /min [facility] ([facility] Body height 65 [in_i] 65 [in_i] [facility] ([facility]) 5'5" Body weight 148.00 [lb_av] 148.00 [lb_av] MEDEN T ([facility]) Body mass index (BMI) [Ratio] 24.6 kg/m2 24.6 k g/m2 [facility] ([facility]) Systolic blood pressure 117 mm[Hg] 117 mm[Hg] M EDENT ([facility]) Diastolic blood pressure 66 mm[Hg] 66 mm[Hg] [facility] ([facility]) Heart rate 74 /min 74 /min [facility] ([facility]) Body weight 146.2 [lb_av] 146.2 [lb_av] eCW1 ([facility]) Body height 63 [in_i] 63 [in_i] eCW1 ([facility]) Body mass index (BMI) [Ratio] 25.9 kg/m2 25.9 k g/m2 eCW1 ([facility]) Systolic blood pressure 118 mm[Hg] 118 mm[Hg] e CW1 ([facility]) Diastolic blood pressure 84 mm[Hg] 84 mm[Hg] eCW1 ([facility]) Systolic blood pressure 104 mm[Hg] 104 mm[Hg] M EDENT ([facility]) Body mass index (BMI) [Ratio] 25.8 kg/m2 25.8 k g/m2 [facility] ([facility]) Slater body weight 115 [lb_av] 115 [lb_av] MEDEN T ([facility]) Body weight 67.586 kg 67.586 kg [facility] ([facility]) Body surface area Derived from formula 1.72 m2 1.72 m2 [facility] ([facility]) Body weight 149.00 [lb_av] 149.00 [lb_av] MEDEN T ([facility]) Diastolic blood pressure 68 mm[Hg] 68 mm[Hg] [facility] ([facility]) Body height 63.75 [in_i] 63.75 [in_i] [facility] ([facility]) 5'3.75" Oxygen saturation in Arterial blood by Pulse oximetry 96 % 96 % [facility] ([facility]) Body temperature 97.2 [degF] 97.2 [degF] [facility] ([facility]) Body height 63.75 [in_i] 63.75 [in_i] [facility] ([facility]) 5'3.75" Body weight 148.50 [lb_av] 148.50 [lb_av] MEDEN T ([facility]) Body mass index (BMI) [Ratio] 25.7 kg/m2 25.7 k g/m2 [facility] ([facility]) Slater body weight 115 [lb_av] 115 [lb_av] MEDEN T ([facility]) Body weight 67.360 kg 67.360 kg [facility] ([facility]) Body surface area Derived from formula 1.72 m2 1.72 m2 [facility] ([facility]) Systolic blood pressure 112 mm[Hg] 112 mm[Hg] M EDENT ([facility]) Diastolic blood pressure 64 mm[Hg] 64 mm[Hg] [facility] ([facility]) Heart rate 71 /min 71 /min [facility] ([facility]) Oxygen saturation in Arterial blood by Pulse oximetry 96 % 96 % [facility] ([facility]) Body temperature 97.2 [degF] 97.2 [degF] [facility] ([facility]) Body height 63.75 [in_i] 63.75 [in_i] [facility] ([facility]) 5'3.75" Body weight 148.50 [lb_av] 148.50 [lb_av] MEDEN T ([facility]) Body mass index (BMI) [Ratio] 25.7 kg/m2 25.7 k g/m2 [facility] ([facility]) Slater body weight 115 [lb_av] 115 [lb_av] MEDEN T ([facility]) Body weight 67.360 kg 67.360 kg [facility] ([facility]) Body surface area Derived from formula 1.72 m2 1.72 m2 [facility] ([facility]) Heart rate 72 /min 72 /min [facility] ([facility] Body temperature 97.3 [degF] 97.3 [degF] [facility] ([facility] Slater body weight 125 [lb_av] 125 [lb_av] MEDEN T ([facility] Body mass index (BMI) [Ratio] 24.3 kg/m2 24.3 k g/m2 [facility] ([facility] Oxygen saturation in Arterial blood by Pulse oximetry 98 % 98 % [facility] ([facility] Systolic blood pressure 112 mm[Hg] 112 mm[Hg] M EDENT ([facility] Diastolic blood pressure 68 mm[Hg] 68 mm[Hg] [facility] ([facility] Respiratory rate 16 /min 16 /min [facility] ( [facility] Body height 65 [in_i] 65 [in_i] MED[facility] ([facility] 5'5" Body weight 146.00 [lb_av] 146.00 [lb_av] MEDEN T ([facility] Systolic blood pressure 124 mm[Hg] 124 mm[Hg] M EDENT ([facility]) Diastolic blood pressure 64 mm[Hg] 64 mm[Hg] MED[facility] ([facility]) Body weight 147.00 [lb_av] 147.00 [lb_av] MEDEN T ([facility]) Respiratory rate 18 /min 18 /min [facility] ( [facility]) Body weight 145.0 [lb_av] 145.0 [lb_av] eCW1 ([facility]) Body weight 65.77 kg 65.77 kg W1 ([facility]) Body height 63 [in_i] 63 [in_i] eCW1 ([facility]) Body mass index (BMI) [Ratio] 25.68 kg/m2 25.68 kg/m2 eCW1 ([facility]) Systolic blood pressure 128 mm[Hg] 128 mm[Hg] e CW1 ([facility]) Diastolic blood pressure 76 mm[Hg] 76 mm[Hg] eCW1 ([facility]) Oxygen saturation in Arterial blood by Pulse oximetry 98 % 98 % [facility] ([facility] Body mass index (BMI) [Ratio] 24.0 kg/m2 24.0 k g/m2 [facility] ([facility] Systolic blood pressure 114 mm[Hg] 114 mm[Hg] M EDENT ([facility] Heart rate 88 /min 88 /min [facility] ([facility] Respiratory rate 16 /min 16 /min [facility] ( [facility] Body height 65 [in_i] 65 [in_i] MED[facility] ([facility] 5'5" Slater body weight 125 [lb_av] 125 [lb_av] MEDEN T ([facility] Body temperature 98.1 [degF] 98.1 [degF] [facility] ([facility] Body weight 144.00 [lb_av] 144.00 [lb_av] MEDEN T ([facility] Diastolic blood pressure 68 mm[Hg] 68 mm[Hg] MEDENT ([facility] Systolic blood pressure 116 mm[Hg] 116 mm[Hg] M EDENT ([facility]) Diastolic blood pressure 68 mm[Hg] 68 mm[Hg] MED[facility] ([facility]) Body weight 145.38 [lb_av] 145.38 [lb_av] MEDEN T ([facility]) Body temperature 95.7 [degF] 95.7 [degF] [facility] ([facility]) Body weight 147.6 [lb_av] 147.6 [lb_av] eCW1 ([facility]) Body height 63 [in_i] 63 [in_i] eCW1 ([facility]) Body mass index (BMI) [Ratio] 26.14 kg/m2 26.14 kg/m2 W1 ([facility]) Systolic blood pressure 138 mm[Hg] 138 mm[Hg] e CW1 ([facility]) Diastolic blood pressure 82 mm[Hg] 82 mm[Hg] eCW1 ([facility]) Body weight 144 [lb_av] 144 [lb_av] eCW1 ([facility]) Body height 63 [in_i] 63 [in_i] eCW1 ([facility]) Body mass index (BMI) [Ratio] 25.51 kg/m2 25.51 kg/m2 eCW1 ([facility]) Systolic blood pressure 128 mm[Hg] 128 mm[Hg] e CW1 ([facility]) Diastolic blood pressure 72 mm[Hg] 72 mm[Hg] eCW1 ([facility]) Body weight 149.00 [lb_av] 149.00 [lb_av] MEDEN T ([facility] Respiratory rate 16 /min 16 /min MED[facility] ( [facility] Body height 65 [in_i] 65 [in_i] MEDENT ([facility] 5'5" Body mass index (BMI) [Ratio] 24.8 kg/m2 24.8 k g/m2 [facility] ([facility] Heart rate 78 /min 78 /min [facility] ([facility] Slater body weight 125 [lb_av] 125 [lb_av] MEDEN T ([facility] Oxygen saturation in Arterial blood by Pulse oximetry 978 % 978 % MED[facility] ([facility] Systolic blood pressure 140 mm[Hg] 140 mm[Hg] M EDENT ([facility] Diastolic blood pressure 80 mm[Hg] 80 mm[Hg] MED[facility] ([facility] Body temperature 96.9 [degF] 96.9 [degF] MED[facility] ([facility] Heart rate 78 /min 78 /min MED[facility] ([facility] Respiratory rate 16 /min 16 /min MED[facility] ( [facility] Body height 65 [in_i] 65 [in_i] MEDENT ([facility] 5'5" Systolic blood pressure 114 mm[Hg] 114 mm[Hg] M EDENT ([facility] Diastolic blood pressure 66 mm[Hg] 66 mm[Hg] MED[facility] ([facility] Body temperature 97.4 [degF] 97.4 [degF] MED[facility] ([facility] Body weight 146.00 [lb_av] 146.00 [lb_av] MEDEN T ([facility] Slater body weight 125 [lb_av] 125 [lb_av] MEDEN T ([facility] Body mass index (BMI) [Ratio] 24.3 kg/m2 24.3 k g/m2 MED[facility] ([facility] Oxygen saturation in Arterial blood by Pulse oximetry 96 % 96 % MED[facility] ([facility] Body temperature 98.2 [degF] 98.2 [degF] MED[facility] ([facility] Body height 65 [in_i] 65 [in_i] MEDENT ([facility] 5'5" Oxygen saturation in Arterial blood by Pulse oximetry 97 % 97 % [facility] ([facility] Respiratory rate 16 /min 16 /min MED[facility] ( [facility] Body weight 143.00 [lb_av] 143.00 [lb_av] MEDEN T ([facility] Diastolic blood pressure 84 mm[Hg] 84 mm[Hg] MED[facility] ([facility] Systolic blood pressure 126 mm[Hg] 126 mm[Hg] M EDENT ([facility] Heart rate 84 /min 84 /min [facility] ([facility] Slater body weight 125 [lb_av] 125 [lb_av] MEDEN T ([facility] Body mass index (BMI) [Ratio] 23.8 kg/m2 23.8 k g/m2 [facility] ([facility] Systolic blood pressure 110 mm[Hg] 110 mm[Hg] M EDENT ([facility] Diastolic blood pressure 80 mm[Hg] 80 mm[Hg] MED[facility] ([facility] Oxygen saturation in Arterial blood by Pulse oximetry 98 % 98 % [facility] ([facility] ([place] [employer]), ([facility] [employer]) Body temperature 97.3 [degF] 97.3 [degF] MED[facility] ([facility] Heart rate 70 /min 70 /min [facility] ([facility] Respiratory rate 18 /min 18 /min [facility] ( [facility] Body height 65 [in_i] 65 [in_i] [facility] ([facility] 5'5" Body weight 143.38 [lb_av] 143.38 [lb_av] MEDEN T ([facility] Slater body weight 125 [lb_av] 125 [lb_av] GABINO Spears ([facility] Body mass index (BMI) [Ratio] 23.9 kg/m2 23.9 k g/m2 [facility] ([facility]
[2021-05-17] MEDS ORDERED: LIDOCAINE 2% 100MG/5ML SDV (FOR ANES.) As Ordered ONE (09:36)
[2021-05-17] MEDS ORDERED: propofoL 200 MG/20 ML VIAL As Ordered ONE (09:36)
--- NOTE | 2021-05-17 09:57 | ROOR ---
Patient Name: Gudelia Quan Procedure Date: 05/17/2021 9:30 AM Date of : 1955 Age: 65 Room: [facility] Gender: Female Note Status: Finalized Procedure: Colonoscopy Indications: High risk colon cancer surveillance: Personal history of colonic polyps Providers: Elia Omalley MD Referring MD: SUSAN REYNOLDS DO Requesting Provider: Medicines: Monitored Anesthesia Care Complications: No immediate complications. Procedure: Pre-Anesthesia Assessment: - The heart rate, respiratory rate, oxygen saturations, blood pressure, adequacy of pulmonary ventilation, and response to care were monitored throughout the procedure. The Colonoscope was introduced through the anus and advanced to the terminal ileum, with identification of the appendiceal orifice and IC valve. The colonoscopy was performed without difficulty. The patient tolerated the procedure well. The quality of the bowel preparation was adequate. Findings: The perianal and digital rectal examinations were normal. Three sessile polyps were found in the sigmoid colon, splenic flexure and ascending colon. The polyps were diminutive in size. These polyps were removed with a cold snare. Resection and retrieval were complete. Mild sigmoid diverticulosis and small internal hemorrhoids. The exam was otherwise without abnormality on direct and retroflexion views. Impression: - Three diminutive polyps in the sigmoid colon, at the splenic flexure and in the ascending colon, removed with a cold snare. Resected and retrieved. - Mild sigmoid diverticulosis and small internal hemorrhoids. - The examination was otherwise normal on direct and retroflexion views. Recommendation: - Repeat colonoscopy in 5 years for surveillance. Procedure Code(s): --- Professional --- 21122, Colonoscopy, flexible; with removal of tumor(s), polyp(s), or other lesion(s) by snare technique Diagnosis Code(s): --- Professional --- Z86.010, Personal history of colonic polyps K63.5, Polyp of colon CPT copyright 2019 [employer]. All rights reserved. The codes documented in this report are preliminary and upon fiberline supervisor review may be revised to meet current compliance requirements. Elia Omalley MD Elia Omalley MD 05/17/2021 9:57:16 AM Electronically signed by Elia Omalley MD Number of Addenda: 0 Note Initiated On: 05/17/2021 9:30 AM Estimated Blood Loss: Estimated blood loss: none.
[2021-05-17 10:20] VITALS: BP 116/71
== END 2021-05-17 10:50 | disposition home or self-care (01) ==
LOC: M OPP 08:33
PROVIDERS: ATTEND Internal Medicine Gastroenterology
DX: Z12.11 Encounter for screening for malignant neoplasm of colon (principal); Z86.010 Personal history of colon polyps; K63.5 Polyp of colon; K57.30 Diverticulosis of large intestine without perforation or abscess without bleeding; K64.8 Other hemorrhoids

== ENCOUNTER 2021-09-30 09:05 | Emergency (ER) | payer MEDICARE, OTHER ==
[~2021-09-30] VITALS: Ht 165.1 cm; Wt 68.5 kg
[~2021-09-30 09:05] MED LIST changes: -NS 1,000 ML IV ONE; +OMEP-173 PO; -OMEP-218 PO
[2021-09-30 09:06] VITALS: BP 178/95
[2021-09-30] MEDS ORDERED: CITA20TA7 (09:13)
[2021-09-30] MEDS ORDERED: HYDR-3363 (09:13)
[2021-09-30] MEDS ORDERED: QUET50TA4 (09:13)
[2021-09-30] MEDS ORDERED: ONDANSETRON 4MG/2ML VIAL IV ONE (09:20)
[2021-09-30] MEDS ORDERED: MORPHINE 4 MG/ML 1ML VIAL/SYRINGE (J2270) IV PRN (09:20)
[2021-09-30] MEDS ORDERED: NS 1,000 ML IV SCH (09:25)
[2021-09-30 10:20] LABS: BASO % 0.4 % (0.0-1.0); EOS # 0.2 10^3/uL (0.0-0.5); EOS % 2.1 % (0.0-3.0); HEMATOCRIT 38.1 % (36.0-47.0); HEMOGLOBIN 12.4 g/dl (12.0-15.5); LYMPH # 1.3 10^3/uL (1.5-5.0); LYMPH % 18.3 % (24.0-44.0); MEAN CORPUSCULAR HEMOGLOBIN 31.6 pg (27.0-33.0); MEAN CORPUSCULAR HGB CONC 32.5 g/dl (32.0-36.5); MEAN CORPUSCULAR VOLUME 96.9 fl (80.0-96.0); MONO # 0.7 10^3/uL (0.0-0.8); MONO % 9.7 % (2.0-8.0); NEUTROPHILS # 4.9 10^3/uL (1.5-8.5); NEUTROPHILS % 69.2 % (36.0-66.0); PLATELET COUNT, AUTOMATED 196 10^3/uL (150-450); RED BLOOD COUNT 3.93 10^6/uL (4.00-5.40)
[2021-09-30] MEDS ORDERED: HYDR-3713 PO (10:40)
[2021-09-30] MEDS ORDERED: FLOM0.4C39 PO (10:40)
[2021-09-30] MEDS ORDERED: ONDA4TAB6 PO (10:42)
[2021-09-30 10:43] LABS: ALBUMIN 3.8 GM/DL (3.2-5.2); BILIRUBIN,DIRECT 0.3 MG/DL (0.0-0.2); BILIRUBIN,TOTAL 1.1 MG/DL (0.2-1.0); TOTAL PROTEIN 7.1 GM/DL (6.4-8.2)
== END 2021-09-30 11:20 | disposition home or self-care (01) ==
LOC: M ED 09:05
DX: N13.0 Hydronephrosis with ureteropelvic junction obstruction (principal); K80.20 Calculus of gallbladder without cholecystitis without obstruction; E78.5 Hyperlipidemia, unspecified; F41.9 Anxiety disorder, unspecified; F32.A Depression, unspecified; G47.30 Sleep apnea, unspecified; M54.50 Low back pain, unspecified; Z98.84 Bariatric surgery status; Z79.899 Other long term (current) drug therapy; Z88.2 Allergy status to sulfonamides; Z88.1 Allergy status to other antibiotic agents
CPT/HCPCS: 36415; 74176; 80047; 80076; 81001; 83690; 85025; 87086; 93005; 96361; 96374; 99284; J2270; J2405

== ENCOUNTER → 2022-03-18 | Outpatient (REF) | payer MEDICARE, OTHER ==
[~2022-03-18] MED LIST changes: +CITA20TA7; +FLOM0.4C39 PO; +HYDR-3363; +HYDR-3713 PO; +ONDA4TAB6 PO; +QUET50TA4; +SIMV-253 PO; -ZOCO20TA PO
== END ==
LOC: M SFHCWAGY 17:03
PROVIDERS: ATTEND Nurse Practitioner Family
DX: Z12.4 Encounter for screening for malignant neoplasm of cervix (principal); N95.2 Postmenopausal atrophic vaginitis
CPT/HCPCS: 87624; G0123

== ENCOUNTER → 2022-03-18 | Outpatient (CLI) | payer MEDICARE, OTHER | LOC: M WHC 15:07 | PROVIDERS: ATTEND Nurse Practitioner Family | DX: Z12.31 Encounter for screening mammogram for malignant neoplasm of breast (principal) ==

== ENCOUNTER → 2022-04-23 | Outpatient (CLI) | payer MEDICARE, OTHER ==
[2022-04-23 11:19] LABS: BASO % 0.4 % (0.0-1.0); EOS # 0.2 10^3/uL (0.0-0.5); EOS % 3.1 % (0.0-3.0); HEMATOCRIT 39.1 % (36.0-47.0); LYMPH # 1.5 10^3/uL (1.5-5.0); LYMPH % 28.4 % (24.0-44.0); MEAN CORPUSCULAR HEMOGLOBIN 31.2 pg (27.0-33.0); MEAN CORPUSCULAR HGB CONC 30.7 g/dl (32.0-36.5); MEAN CORPUSCULAR VOLUME 101.6 fl (80.0-96.0); MONO # 0.6 10^3/uL (0.0-0.8); MONO % 12.3 % (2.0-8.0); NEUTROPHILS # 2.9 10^3/uL (1.5-8.5); NEUTROPHILS % 55.6 % (36.0-66.0); PLATELET COUNT, AUTOMATED 200 10^3/uL (150-450); RED BLOOD COUNT 3.85 10^6/uL (4.00-5.40); WHITE BLOOD COUNT 5.2 10^3/uL (4.0-10.0)
[2022-04-23 12:27] LABS: ALBUMIN 3.7 GM/DL (3.2-5.2); ALT/SGPT 48 U/L (12-78); BLOOD UREA NITROGEN 21 MG/DL (7-18); CALCIUM LEVEL 8.8 MG/DL (8.8-10.2); CARBON DIOXIDE LEVEL 30 MEQ/L (21-32); CHLORIDE LEVEL 108 MEQ/L (98-107); CREATININE FOR GFR 0.64 MG/DL (0.55-1.30); FERRITIN 12 NG/ML (8-252); GLOMERULAR FILTRATION RATE > 60.0 (>45); GLUCOSE, FASTING 116 MG/DL (70-100); IRON (FE) 86 UG/DL (50-170); PERCENT SATURATION 18.5 % (13.2-45.0); POTASSIUM SERUM 4.9 MEQ/L (3.5-5.1); SODIUM LEVEL 140 MEQ/L (136-145); THYROID STIMULATING HORMONE 0.768 uIU/ML (0.358-3.740); TOTAL IRON BINDING CAPACITY 465 UG/DL (250-450)
[2022-04-23 14:14] LABS: TOTAL 25(OH) VITAMIN D 46.2 NG/ML (30.0-100.0)
[2022-04-23 14:15] LABS: VITAMIN B12 LEVEL 391 PG/ML (247-911)
== END ==
LOC: M WUC 08:15
PROVIDERS: ATTEND Registered Nurse
DX: E78.5 Hyperlipidemia, unspecified (principal); E66.01 Morbid (severe) obesity due to excess calories; K21.9 Gastro-esophageal reflux disease without esophagitis

== ENCOUNTER → 2022-05-24 | Outpatient (CLI) | payer MEDICARE, OTHER ==
[2022-05-24 09:49] LABS: BASO % 0.7 % (0.0-1.0); EOS # 0.2 10^3/uL (0.0-0.5); EOS % 4.1 % (0.0-3.0); HEMATOCRIT 38.5 % (36.0-47.0); HEMOGLOBIN 12.1 g/dl (12.0-15.5); LYMPH # 1.4 10^3/uL (1.5-5.0); LYMPH % 31.4 % (24.0-44.0); MEAN CORPUSCULAR HEMOGLOBIN 31.4 pg (27.0-33.0); MEAN CORPUSCULAR HGB CONC 31.4 g/dl (32.0-36.5); MONO # 0.7 10^3/uL (0.0-0.8); MONO % 14.2 % (2.0-8.0); NEUTROPHILS # 2.3 10^3/uL (1.5-8.5); NEUTROPHILS % 49.4 % (36.0-66.0); PLATELET COUNT, AUTOMATED 208 10^3/uL (150-450); RED BLOOD COUNT 3.85 10^6/uL (4.00-5.40); WHITE BLOOD COUNT 4.6 10^3/uL (4.0-10.0)
[2022-05-24 09:52] LABS: COLOR, URINE MANUAL YELLOW (YELLOW)
[2022-05-24 09:53] LABS: PROTEIN, URINE MANUAL TRACE mg/dL (NEGATIVE); SPECIFIC GRAVITY,URINE MANUAL 1.015 (1.002-1.035)
[2022-05-24 09:59] LABS: APPEARANCE, URINE MANUAL CLOUDY (CLEAR); BILIRUBIN, URINE MANUAL NEGATIVE (NEGATIVE); BLOOD URINE MANUAL TRACE (NEGATIVE); GLUCOSE, URINE (UA) MANUAL NEGATIVE (NEGATIVE); KETONE, URINE MANUAL NEGATIVE (NEGATIVE); LEUKOCYTE ESTERASE, URINE MAN POSITIVE (NEGATIVE); NITRITE, URINE MANUAL POSITIVE (NEGATIVE); UROBILINOGEN, URINE MANUAL 1 MG mg/dl (NORMAL)
[2022-05-24 10:19] LABS: ALT/SGPT 33 U/L (12-78); BILIRUBIN,TOTAL 0.9 MG/DL (0.2-1.0); BLOOD UREA NITROGEN 18 MG/DL (7-18); CALCIUM LEVEL 9.1 MG/DL (8.8-10.2); CARBON DIOXIDE LEVEL 30 MEQ/L (21-32); CHLORIDE LEVEL 106 MEQ/L (98-107); CHOLESTEROL LEVEL 157 MG/DL (<200); CHOLESTEROL RISK RATIO 1.938 (<5); CREATININE FOR GFR 0.62 MG/DL (0.55-1.30); GLOMERULAR FILTRATION RATE > 60.0 (>45); GLUCOSE, FASTING 93 MG/DL (70-100); HDL CHOLESTEROL 81 MG/DL (>40); LDL CHOLESTEROL 51 MG/DL (<100); NON-HDL-C 76 MG/DL; POTASSIUM SERUM 4.6 MEQ/L (3.5-5.1); SODIUM LEVEL 138 MEQ/L (136-145); TOTAL PROTEIN 7.4 GM/DL (6.4-8.2); TRIGLYCERIDES LEVEL 125 MG/DL (<150)
[2022-05-24 10:21] LABS: WBC, URINE 20-30 /hpf (0-3)
[2022-05-24 10:22] LABS: BACTERIA, URINE LARGE AMOUNT; HYALINE CAST, URINE NONE SEEN /lpf (0-1); MUCUS, URINE SMALL AMOUNT (NEGATIVE); SQUAMOUS EPITHELIAL CELL URINE SMALL AMOUNT /hpf (SMALL AMT)
== END ==
LOC: M WUC 08:20
PROVIDERS: ATTEND Family Medicine
DX: E78.5 Hyperlipidemia, unspecified (principal); I10 Essential (primary) hypertension

== ENCOUNTER → 2022-10-10 | Outpatient (CLI) | payer MEDICARE, OTHER ==
[2022-10-10 10:10] LABS: BASO % 0.8 % (0.0-1.0); EOS # 0.1 10^3/uL (0.0-0.5); EOS % 3.6 % (0.0-3.0); HEMATOCRIT 36.6 % (36.0-47.0); HEMOGLOBIN 11.4 g/dl (12.0-15.5); LYMPH # 1.3 10^3/uL (1.5-5.0); LYMPH % 33.9 % (24.0-44.0); MEAN CORPUSCULAR HEMOGLOBIN 29.6 pg (27.0-33.0); MEAN CORPUSCULAR HGB CONC 31.1 g/dl (32.0-36.5); MEAN CORPUSCULAR VOLUME 95.1 fl (80.0-96.0); MONO # 0.5 10^3/uL (0.0-0.8); MONO % 13.7 % (2.0-8.0); NEUTROPHILS # 1.8 10^3/uL (1.5-8.5); NEUTROPHILS % 47.7 % (36.0-66.0); PLATELET COUNT, AUTOMATED 189 10^3/uL (150-450); RED BLOOD COUNT 3.85 10^6/uL (4.00-5.40); WHITE BLOOD COUNT 3.9 10^3/uL (4.0-10.0)
[2022-10-10 10:41] LABS: IRON (FE) 39 UG/DL (50-170); PERCENT SATURATION 9.4 % (13.2-45.0); TOTAL IRON BINDING CAPACITY 417 UG/DL (250-425)
[2022-10-10 10:44] LABS: ALBUMIN 3.8 G/DL (3.2-5.2); ALKALINE PHOSPHATASE 80 U/L (46-116); ALT/SGPT 31 U/L (7.0-40); AST/SGOT 32 U/L (<34); BILIRUBIN,TOTAL 1.1 MG/DL (0.3-1.2); BLOOD UREA NITROGEN 17 MG/DL (9-23); CALCIUM LEVEL 8.7 MG/DL (8.3-10.6); CARBON DIOXIDE LEVEL 30 MMOL/L (20-31); CHLORIDE LEVEL 106 MMOL/L (98-107); CREATININE FOR GFR 0.58 MG/DL (0.55-1.30); FERRITIN 5.5 NG/ML (7.3-270.7); GLOMERULAR FILTRATION RATE > 60.0 (>45); GLUCOSE, FASTING 91 MG/DL (74-106); POTASSIUM SERUM 5.3 MMOL/L (3.5-5.1); SODIUM LEVEL 141 MMOL/L (136-145); THYROID STIMULATING HORMONE 0.815 uIU/ML (0.55-4.78); TOTAL 25(OH) VITAMIN D 62.3 NG/ML (20.0-100.0); TOTAL PROTEIN 6.7 G/DL (5.7-8.2); VITAMIN B12 LEVEL 327 PG/ML (211-911)
== END ==
LOC: M WUC 08:13
PROVIDERS: ATTEND Registered Nurse
DX: E66.01 Morbid (severe) obesity due to excess calories (principal); E78.5 Hyperlipidemia, unspecified; K21.9 Gastro-esophageal reflux disease without esophagitis

== ENCOUNTER → 2023-05-28 | Outpatient (REF) | payer MEDICARE, OTHER | LOC: M SFHCDERM 17:55 | PROVIDERS: ATTEND Physician Assistant | DX: L70.8 Other acne (principal); L57.8 Other skin changes due to chronic exposure to nonionizing radiation ==

== ENCOUNTER → 2023-09-30 | Outpatient (CLI) | payer MEDICARE, OTHER | LOC: M SOG 09:43 | PROVIDERS: ATTEND Orthopaedic Surgery Hand Surgery | DX: M25.511 Pain in right shoulder (principal) ==

== ENCOUNTER → 2023-10-08 | Outpatient (CLI) | payer MEDICARE, OTHER ==
[2023-10-08 13:58] LABS: HEMATOCRIT 35.9 % (36.0-47.0); HEMOGLOBIN 11.2 g/dl (12.0-15.5); MEAN CORPUSCULAR HEMOGLOBIN 29.7 pg (27.0-33.0); MEAN CORPUSCULAR HGB CONC 31.2 g/dl (32.0-36.5); MEAN CORPUSCULAR VOLUME 95.2 fl (80.0-96.0); PLATELET COUNT, AUTOMATED 201 10^3/uL (150-450); RED BLOOD COUNT 3.77 10^6/uL (4.00-5.40); WHITE BLOOD COUNT 4.6 10^3/uL (4.0-10.0)
[2023-10-08 14:39] LABS: FERRITIN 8.7 NG/ML (7.3-270.7)
[2023-10-08 14:40] LABS: TOTAL 25(OH) VITAMIN D 16.8 NG/ML (20.0-100.0)
[2023-10-08 14:43] LABS: VITAMIN B12 LEVEL 750 PG/ML (211-911)
[2023-10-08 14:44] LABS: ALBUMIN 3.8 G/DL (3.2-5.2); ALKALINE PHOSPHATASE 85 U/L (46-116); ALT/SGPT 39 U/L (7.0-40); AST/SGOT 29 U/L (<34); BILIRUBIN,TOTAL 0.8 MG/DL (0.3-1.2); BLOOD UREA NITROGEN 13 MG/DL (9-23); CALCIUM LEVEL 8.9 MG/DL (8.3-10.6); CARBON DIOXIDE LEVEL 27 MMOL/L (20-31); CHLORIDE LEVEL 110 MMOL/L (98-107); CREATININE FOR GFR 0.57 MG/DL (0.55-1.30); GLOMERULAR FILTRATION RATE > 60.0 (>45); GLUCOSE, FASTING 78 MG/DL (74-106); IRON (FE) 45 UG/DL (50-170); PERCENT SATURATION 10.7 % (13.2-45.0); POTASSIUM SERUM 4.7 MMOL/L (3.5-5.1); SODIUM LEVEL 139 MMOL/L (136-145); TOTAL IRON BINDING CAPACITY 420 UG/DL (250-425); TOTAL PROTEIN 6.8 G/DL (5.7-8.2)
== END ==
LOC: M LAB 10:57
PROVIDERS: ATTEND Surgery
DX: K91.2 Postsurgical malabsorption, not elsewhere classified (principal)

== ENCOUNTER → 2023-10-21 | Outpatient (CLI) | payer MEDICARE, OTHER | LOC: M RAD 10:22 | PROVIDERS: ATTEND Orthopaedic Surgery Hand Surgery | DX: M25.511 Pain in right shoulder (principal); M19.011 Primary osteoarthritis, right shoulder ==

== ENCOUNTER → 2024-02-04 | Outpatient (CLI) | payer MEDICARE, OTHER ==
[~2024-02-04] MED LIST changes: +ONDA-282 PO; -ONDA4TAB6 PO
== END ==
LOC: M WHC 14:42
PROVIDERS: ATTEND Nurse Practitioner Family
DX: Z12.31 Encounter for screening mammogram for malignant neoplasm of breast (principal)

== ENCOUNTER → 2024-02-04 | Outpatient (REF) | payer MEDICARE, OTHER ==
[2024-02-06 12:27] LABS: HPV APTIMA Not Detected (Not Detected)
== END ==
LOC: M SFHCWAGY 17:16
PROVIDERS: ATTEND Nurse Practitioner Family
DX: Z12.4 Encounter for screening for malignant neoplasm of cervix (principal)
CPT/HCPCS: 87624; G0123

== ENCOUNTER → 2024-10-12 | Outpatient (CLI) | payer MEDICARE, OTHER ==
[2024-10-12 15:05] LABS: HEMATOCRIT 34.3 % (36.0-47.0); HEMOGLOBIN 10.5 g/dl (12.0-15.5); MEAN CORPUSCULAR HEMOGLOBIN 26.7 pg (27.0-33.0); MEAN CORPUSCULAR HGB CONC 30.6 g/dl (32.0-36.5); MEAN CORPUSCULAR VOLUME 87.3 fl (80.0-96.0); PLATELET COUNT, AUTOMATED 236 10^3/uL (150-450); RED BLOOD COUNT 3.93 10^6/uL (4.00-5.40); WHITE BLOOD COUNT 4.3 10^3/uL (4.0-10.0)
[2024-10-12 15:39] LABS: TOTAL 25(OH) VITAMIN D 16.7 NG/ML (20.0-100.0); VITAMIN B12 LEVEL 478 PG/ML (211-911)
[2024-10-12 15:40] LABS: ALBUMIN 3.8 G/DL (3.2-5.2); ALKALINE PHOSPHATASE 83 U/L (35-104); ALT/SGPT 29 U/L (7.0-40); AST/SGOT 24 U/L (<34); BILIRUBIN,TOTAL 1.2 MG/DL (0.3-1.2); BLOOD UREA NITROGEN 11 MG/DL (9-23); CARBON DIOXIDE LEVEL 25 MMOL/L (20-31); CHLORIDE LEVEL 108 MMOL/L (98-107); CREATININE FOR GFR 0.59 MG/DL (0.55-1.30); GLOMERULAR FILTRATION RATE > 60.0 (>45); GLUCOSE, FASTING 103 MG/DL (74-106); IRON (FE) 71 UG/DL (50-170); PERCENT SATURATION 15.7 % (13.2-45.0); POTASSIUM SERUM 4.7 MMOL/L (3.5-5.1); SODIUM LEVEL 139 MMOL/L (136-145); TOTAL IRON BINDING CAPACITY 453 UG/DL (250-425); TOTAL PROTEIN 7.2 G/DL (5.7-8.2)
[2024-10-12 15:41] LABS: FERRITIN 6.3 NG/ML (7.3-270.7)
[2024-10-13 11:27] LABS: TRANSFERRIN 379 mg/dL (188-341)
== END ==
LOC: M WUC 10:28
PROVIDERS: ATTEND Surgery
DX: K91.2 Postsurgical malabsorption, not elsewhere classified (principal)